=== PATIENT | male | born 1960 | race Caucasian/White ===

== ENCOUNTER → 2017-11-24 10:49 | Outpatient (CLI) | payer BC, SELFPAY ==
--- NOTE | 2017-11-24 10:57 | XR_ITS ---
XR hip LT 2-3V w/pelvis HISTORY: Left hip pain ITS.REASON: BILAT HIP PAIN ORDERING PHYSICIAN: Scott Villegas MD PATIENT AGE: 57 years COMPARISON: None FINDINGS: There are severe osteoarthritic changes of the left hip with loss of the joint space superiorly with osteosclerosis and osteophyte formation. There is minimal flattening of the left femoral head consistent with dysplastic changes from the osteoarthritis. No fracture or dislocation. No lytic change. IMPRESSION: Severe osteoarthritis of left hip with mild dysplastic changes of the left femoral head
--- NOTE | 2017-11-24 10:57 | XR_ITS ---
EXAM: XR lumbar spine min 4V HISTORY: Low back pain with bilateral hip pain ITS.REASON: BILAT HIP PAIN ORDERING PHYSICIAN: Scott Villegas MD PATIENT AGE: 57 years COMPARISON: None FINDINGS: Multilevel degenerative disc disease is present from T11 to S1 with endplate osteophytes at multiple levels. The degenerative disc disease is worse at T11-T12, T12-L1, L4-L5, and L5-S1. There is mild anterolisthesis of L5 on S1 of 6 mm. Facet arthritic changes are present from L2 to S1. No acute fracture or dislocation. IMPRESSION: Multilevel lumbar spondylosis with degenerative disc disease and facet arthritic change and osteophytosis
== END ==
PROVIDERS: PCP Family Medicine; Visit Provider Family Medicine
DX: M25.552 Pain in left hip (principal); M25.551 Pain in right hip
CPT/HCPCS: 72110; 73502

== ENCOUNTER 2018-10-19 08:00 | Outpatient (RCR) | payer BC, SELFPAY | END 2018-10-23 15:23 | disposition home or self-care (01) | LOC: PT.CARL 08:00 | PROVIDERS: Visit Provider Orthopaedic Surgery | DX: M16.12 Unilateral primary osteoarthritis, left hip (principal) | CPT/HCPCS: 97010; 97110; 97112; 97116; 97163 ==

== ENCOUNTER → 2018-12-14 14:15 | Outpatient (CLI) | payer BC, SELFPAY ==
--- NOTE | 2018-12-14 14:24 | XR_ITS ---
XR foot wt bearing LT 3V, XR foot wt bearing RT 3V, XR ankle wt bearing LT min 3V, XR ankle wt bearing RT min 3V Ordering Physician: Alina Collins DPM Patient Age: 58 years: Male HISTORY: ITS.REASON: pain TECHNIQUE: All studies below are weightbearing: Left ankle 3 views Right ankle 3 views Left foot 3 views Right foot 3 views COMPARISON :NO STUDIES PRIOR TO TODAY.... LEFT ANKLE 3 VIEWS The ankle mortise appears intact dome of the talus intact. Minimal hypertrophic changes are seen about the ankle particularly from the anterior margin of the tibia as well as the tip of the medial lateral malleolus. Most prominent finding is diffuse soft tissue swelling at the ankle, most pronounced medially. Moderate plantar calcaneal spur as well as moderate spurring at insertion of Achilles RIGHT ANKLE 3 VIEWS The dome of the talus is intact. The medial and the lateral malleolus intact with only some mild hypertrophic changes from each. The right ankle mortise intact and unremarkable on the AP view. On the AP oblique view questioninversion tilt of the talus along with the plafond, & ankle mortise-. I suspect this is merely projectional but requires correlation clinically.. Thereafter LEFT FOOT 3 VIEWS Generous plantar calcaneal spur as well as minimal spurring at insertion of Achilles ======= LEFT FOOT: 3 VIEWS Developing arthritic changes are seen at mid foot most evident at the medial tarsals with hypertrophic changes and mild irregularity at the talar navicular joint as well is the navicular first cuneiform articulation on left. These features are more evident at the left foot than right.. There is pes planus.Noted on the lateral view with the moderate plantar calcaneal spur and minimal spurring of the Achilles tendon again noted.. . The forefoot appears satisfactory. Toes unremarkable. Metatarsal satisfactory. Bones well mineralized throughout. , At at least 3 corticated old appearing ovoid osseous fragments are seen off the medial aspect of calcaneus.. RIGHT FOOT 3 VIEWS Only scant if any degenerative changes at mid foot on the right. There may be some early arthritic changes about the mid clavicular dorsally. The pes planus again noted here on right. The generous plantar calcaneal spur and scant spurring at Achilles tendon again noted. Scant flexion deformity at the toes question on lateral view. Borderline/mild degenerative changes medial aspect IP joint great toe... Otherwise toes and metatarsals are unremarkable. IMPRESSION//SUMMARY FEET Bilateral Pes Planus Left foot with more evident developing arthritic changes-which are most notable at the medial tarsals . Arthritic changes about about the proximal and distal navicular left foot>> right ANKLEs Ankle joint fairly well-maintained bilaterally. Mild hypertrophic degenerative changes about the margins of joint, left slightly more than right Question subtle early inversion tilt right ankle more than left on oblique view More Prominent Soft Tissue Swelling about the Left Ankle & most pronounced medially. Requires correlation Also note additional osseous fragments/dystrophic calcification noted medial to the Left calcaneus well
== END ==
PROVIDERS: PCP Family Medicine; Visit Provider Podiatrist
DX: M79.673 Pain in unspecified foot (principal); M76.821 Posterior tibial tendinitis, right leg; M76.822 Posterior tibial tendinitis, left leg
CPT/HCPCS: 73610; 73630

== ENCOUNTER → 2020-05-02 15:14 | Outpatient (CLI) | payer BC, SELFPAY ==
--- NOTE | 2020-05-02 | CA_ITS ---
APPROVED REPORT Right Lower Extremity Venous Study for DVT. [employer]ator: SHANTEL Indications Lower Extremity Pain: Right Lower Extremity Edema: Right Patient denies trauma. States most of the pain is in the popliteal fossa down into the calf. Risk Factors Obesity Morbid obesity Medications Aspirin 81 mg ASA daily Vein Imaging CFV (R): Not Visualized FEM (R): compressive, spontaneous, phasic, augmentation POP (R): compressive, spontaneous, phasic, augmentation PTV (R): compressive, spontaneous, phasic, augmentation GSV (R): compressive, spontaneous, phasic, augmentation SSV (R): compressive, spontaneous, phasic, augmentation Peroneals (R):Not Visualized Findings No evidence of DVT or superficial thrombophlebitis in the veins scanned of the right lower extremity. Conclusion No evidence of DVT or superficial thrombophlebitis in the veins scanned of the right lower extremity. Electronically signed by : Devin Golden MD 05/02/2020 17:33:26
== END ==
PROVIDERS: PCP Family Medicine; Visit Provider Family Medicine
DX: R60.0 Localized edema (principal); M79.661 Pain in right lower leg
CPT/HCPCS: 93971

== ENCOUNTER → 2020-10-20 15:42 | Outpatient (CLI) | payer BC, SELFPAY ==
--- NOTE | 2020-10-20 | XR_ITS ---
PROCEDURE: XR ANKLE RT MIN 3V CLINICAL INDICATION: Pain swelling and redness COMPARISON: CR [id number] XR ankle wt bearing LT min 3V from 12/14/2018 CR [id number] XR ankle wt bearing RT min 3V from 12/14/2018 FINDINGS: Soft tissue swelling is present medially and laterally. Degenerative changes are present at the ankle joint. There is a prominent os trigonum. Small calcific density is present along the medial malleolus projecting between the malleolus and the talus. No obvious fracture or dislocation. There is somewhat limitation in patient positioning on the AP views. Prominent calcaneal spurs noted. IMPRESSION: Degenerative changes with soft tissue swelling Dictated by: Devin Golden MD 10/20/2020 16:13 Devin Golden MD in [place] 10/20/2020 16:13
--- NOTE | 2020-10-20 | XR_ITS ---
PROCEDURE: XR FOOT RT MIN 3V CLINICAL INDICATION: Foot pain swelling and redness COMPARISON: No exams were available for comparison FINDINGS: No fracture or dislocation. No lytic or blastic change. There is normal mineralization. Osteoarthritic changes are present at the talonavicular and navicular cuneiform joint. There is a prominent os trigonum there is a type 3 os navicularis with bony hypertrophic changes at the medial aspect of the navicular. Mild osteoarthritic changes are present at the 1st interphalangeal joint and the 1st metatarsophalangeal joint. There is a small calcaneal spur. Other findings:None. IMPRESSION: Degenerative changes as described above Dictated by: Devin Golden MD 10/20/2020 16:11 Devin Golden MD in [place] 10/20/2020 16:11
== END ==
PROVIDERS: PCP Family Medicine; Visit Provider Nurse Practitioner
DX: M79.671 Pain in right foot (principal); M25.571 Pain in right ankle and joints of right foot
CPT/HCPCS: 73610; 73630

== ENCOUNTER → 2020-10-30 10:05 | Outpatient (CLI) | payer BC, SELFPAY ==
--- NOTE | 2020-10-30 | US_ITS ---
APPROVED REPORT Exam Type: Lower Extremity Segmental Pressures Risk Developer: Joaquina Newsome CRT Indications Ht 72 [id number] Risk Factors Hypertension Pressures/Indices Right Indices Left Indices Brachial 89.00 mmHg Brachial 101.00 mmHg Low Thigh 120.00 mmHg 1.19 Low Thigh 126.00 mmHg 1.25 Calf 91.00 mmHg 0.90 Calf 87.00 mmHg 0.86 Ankle(PT) 117.00 mmHg 1.16 Ankle(PT) 107.00 mmHg 1.06 Ankle(DP) 103.00 mmHg 1.02 Ankle(DP) 97.00 mmHg 0.96 Digit 91.00 mmHg 0.90 Digit 65.00 mmHg 0.64 Findings R CRISTIAN 1.2 L CRISTIAN 1.1 R TBI 0.9 L TBI 0.6 Normal waveforms, pulses. Conclusion R CRISTIAN 1.2 L CRISTIAN 1.1 R TBI 0.9 L TBI 0.6 Normal waveforms, pulses. Normal appearing resting noninvasive lower extremity arterial study. Electronically signed by : Devin Golden MD 10/30/2020 16:05:02
== END ==
PROVIDERS: PCP Family Medicine; Visit Provider Nurse Practitioner
DX: M79.671 Pain in right foot (principal); I73.9 Peripheral vascular disease, unspecified
CPT/HCPCS: 93923; 93924

== ENCOUNTER → 2021-01-30 10:10 | Outpatient (CLI) | payer BC, SELFPAY ==
[2021-01-30 10:38] LABS: Basophils # 0.1 K/mm3 (0-0.2); Basophils % 1.9 % (0.1-2.0); Eosinophils # 0.1 K/mm3 (0.0-0.4); Eosinophils % 3.3 % (0.1-12.0); Hemoglobin 17.7 g/dL (14.1-18.0); Lymphocytes # 1.8 K/mm3 (0.7-4.5); Lymphocytes % 42.9 % (10-50); Mean Corpuscular HGB Conc 31.6 g/dL (31.8-35.4); Mean Corpuscular Hemoglobin 31.5 pg (27.0-31.2); Mean Corpuscular Volume 99.5 fl (80-94); Mean Platelet Volume 9.3 fl (7.4-10.4); Monocytes # 0.3 K/mm3 (0.1-1.0); Monocytes % 6.2 % (1.7-9.3); Neutrophils # 1.9 K/mm3 (1.8-7.8); Neutrophils % 45.7 % (37.0-80.0); Platelet Count 202 K/mm3 (142-424); Red Blood Count 5.63 M/mm3 (4.60-6.20); Red Cell Distribution Width 14.1 % (11.5-17.5); White Blood Count 4.2 K/mm3 (4.8-10.8)
[2021-01-30 11:08] LABS: Anion Gap 14.3 mEq/L (5-15); Bilirubin,Direct 0.1 mg/dl (0.0-0.4); Bilirubin,Total 0.7 mg/dl (0.2-1.3); Blood Urea Nitrogen 18 mg/dl (9-20); Calcium 9.9 mg/dl (8.4-10.2); Carbon Dioxide 31 mmol/L (22.0-30.0); Chloride 99 mmol/L (98-107); Estimated Glomerular Filt Rate 76 ml/min (>60); GFR (African American) 93 ML/MIN (>60); Glucose 99 mg/dl (74-100); Potassium 5.3 mmoL/L (3.5-5.1); Sodium 139 mmol/L (136-145)
[2021-01-30 11:09] LABS: Alanine Aminotransferase 27 U/L (12-78); Albumin Level 4.6 g/dl (3.5-5.0); Alkaline Phosphatase 61 U/L (38-126); Aspartate Amino Transferase 42 U/L (17-59); Bilirubin,Indirect 0.6 mg/dL (0.0-0.9); Bilirubin,Unconjugated 0.6 mg/dL (0.0-1.1); Chol/HDL Ratio 4.9 (1-3.5); Cholesterol 214 mg/dl (140-200); HDL Cholesterol 44 mg/dl (40-60); Total Protein,Serum 7.9 g/dl (6.3-8.2); Triglycerides 136 mg/dl (30-150); VLDL Cholesterol 27 mg/dL (0-40)
[2021-01-30 11:20] LABS: Direct LDL Cholesterol 132.32 mg/dL (100-129)
[2021-01-30 11:24] LABS: Free T4 (Free Thyroxine) 1.11 ng/dl (0.78-2.19)
[2021-01-30 11:39] LABS: Thyroid Stimulating Hormone 2.22 uIU/mL (0.465-4.68)
== END ==
PROVIDERS: Visit Provider Internal Medicine Cardiovascular Disease
DX: I10 Essential (primary) hypertension; E78.5 Hyperlipidemia, unspecified; Z79.899 Other long term (current) drug therapy; I48.20 Chronic atrial fibrillation, unspecified
CPT/HCPCS: 36415; 80048; 80061; 80076; 84439; 84443; 85025

== ENCOUNTER → 2021-02-05 12:49 | Outpatient (CLI) | payer BC, SELFPAY ==
--- NOTE | 2021-02-05 12:50 | CT_ITS ---
Procedure: CT ANGIO ABDOMEN/FEMORAL CLINICAL HISTORY: eval for PAD Lower legs discolored x2-yrs is home and chin COMPARISON: No exams were available for comparison TECHNIQUE: IV Contrast: 120 mL Isovue 370 Axial images obtained with sagittal and coronal reformats. All CT scans at the facility use one or more dose reduction, viz: automated exposure control, ma/kV adjustment per patient size (including targeted exams where dose is matched to indication, i.e. head), or iterative reconstruction technique. FINDINGS: The aorta has an unremarkable appearance. Common iliacs and external iliacs are tortuous on both sides but no evidence significant stenosis. Small amount of plaque is present in the proximal aspect of the right common femoral artery with less than 50 percent stenosis. The right SFA and popliteal is unremarkable. The left common femoral has an unremarkable appearance. Minimal calcific plaque is present in the mid left SFA and in the popliteal artery with no significant stenosis. On the right, the tibial peroneal trunk is unremarkable. Three-vessel runoff is present to the ankles. The left tibial peroneal trunk has an unremarkable appearance. Three-vessel runoff is present to the ankles. Pertinent incidental there is a total left hip prosthesis present. The acetabular cup screws extend within the soft tissues medial to the ileum. There is mild diffuse subcutaneous edema involving the lower extremities on both sides below the knees. IMPRESSION: 1. No significant stenosis in the abdominal aorta pelvis or lower extremities. Less than 50 percent stenosis is present in the right common femoral artery due to calcific plaque. 2. Diffuse subcutaneous edema of the lower extremities below the knees on both sides. Dictated by: Devin Golden MD 02/06/2021 10:16 Devin Golden MD in [place] 02/06/2021 10:16
== END ==
PROVIDERS: PCP Family Medicine; Visit Provider Internal Medicine Cardiovascular Disease
DX: M79.605 Pain in left leg (principal); M79.604 Pain in right leg; L81.9 Disorder of pigmentation, unspecified; I10 Essential (primary) hypertension; E78.5 Hyperlipidemia, unspecified; I48.20 Chronic atrial fibrillation, unspecified
CPT/HCPCS: 75635; Q9967

== ENCOUNTER 2021-07-24 17:20 | Emergency (ER) | payer BC, SELFPAY ==
[2021-07-24 17:25] VITALS: BP 121/92; PULSE 77; RESP 18; TEMP 36.3; O2SAT 96; BMI 56.7
--- NOTE | 2021-07-24 17:44 | XR_ITS ---
PROCEDURE INFORMATION: Exam: XR Left Hand Exam date and time: 07/24/2021 5:44 PM Age: 61 years old Clinical indication: Injury or trauma; Fall; Blunt trauma (contusions or hematomas); Hand; Left; Injury date: 07/24/2021; Injury details: Fell and had pain in 2nd and 3rd fingers TECHNIQUE: Imaging protocol: XR Left hand. Views: 3 or more views. COMPARISON: No relevant prior studies available. FINDINGS: Bones/joints: A curvilinear 2 mm volar plate avulsion fracture of the 5th PIP joint seen on lateral series 3, arising from the anterior base of the 5th middle phalanx, minimally displaced. No definite fractures in the 2nd and 3rd digits, in the area of reported symptoms.No significant arthritic deformities.There are no lytic skeletal lesions seen. Soft tissues: Soft tissue swelling in the digits.There are no soft tissue masses or fluid collections. IMPRESSION: 1. 2 mm volar plate avulsion fracture at the 5th PIP joint, arising from the anterior base of the 5th middle phalanx, indeterminate age. 2. No acute fracture or dislocation in the 2nd or 3rd digits. 3. Soft tissue swelling.
--- NOTE | 2021-07-24 17:50 | HMH.EDUTC ---
[facility] [place]ression: Fall Qualifiers: Encounter type: initial encounter Qualified Code(s): W19.XXXA - Unspecified fall, initial encounter Disposition: Home, Self-Care Condition on Discharge: Good Instructions: How To Perform RICE (Rest, Ice, Compress, Elevate), How to Andres Tape Additional Instructions: *RICE, Rest the extremity, Ice 15-20 minutes 3-4 times daily, Compress- wear the audra wrap as discussed as much as possible to help reduce swelling and pain, Elevate the extremity when at rest *Andres tape/finger splint is for support and help control swelling, use it except in the shower. Be sure that is not to tight but not to loose either *Elevate when resting *Ibuprofen every 6-8 hours as needed for pain an inflammation. If need something more can take Tylenol in between doses of Ibuprofen to help Immediately follow up with your family doctor for new or worsening of symptoms, or no noticeable improvement over the next 3-5 days Follow up with your Family Doctor if no improvement or any worsening of symptoms Return if needed Straight to ER if any life threatening symptoms Follow up with Orthopedics if pain continues or worsens Call back to the [facility] later this evening for the official reading of your xray Referrals: Scott Villegas MD [Primary Care Provider] - As needed Forms: Work/School Release Time of Disposition: 18:39 Medical Decision Making - Víctor Inquiry Pt receiving controlled substance: No Víctor was queried for this patient: No Vital Signs: 07/24/21 17:25 07/24/21 18:37 Temperature 97.4 F L 97.4 F L Temperature Source Temporal Artery Scan Pulse Rate 77 Pulse Rate [Right Brachial] 77 Respiratory Rate 18 18 Blood Pressure 121/92 H Blood Pressure [Right Arm] 121/92 H Blood Pressure Mean [Right Arm] 101 Blood Pressure Source [Right Arm] Automatic Cuff Blood Pressure Position [Right Arm] Sitting 02 Sat by Pulse Oximetry 96 Oxygen Delivery Method Room Air - Radiology Data #1 Image(s): Hand Image Reviewed: Yes I reviewed the patient's radiology image w/the ED provider No acute fracture [facility] [place] - General Stated complaint: AO 07/24 injured L hand Time Seen by Provider: 07/24/21 17:50 Mode of Arrival: Ambulatory Source of Information: Patient Limitations: No Limitations Description of Symptoms (Recalled from Triage Doc. by RN): PATIENT REPORTS HE FELL OFF ESCALATOR TODAY AND INJURED LEFT HAND HEENT Symptoms (Recalled from RN notes): No Resp Symptoms (Recalled from RN notes): No Skin Symptoms (Recalled from RN notes): No MS Symptoms (Recalled from RN notes): Yes Functional Status (Recalled from RN notes): WNL - History of Present Illness Provider Complaint: Patient states that he was at [facility] today and he tripped getting off the escalator and landed on his left hand States that he has been having pain in his third and fourth finger ever since with swelling and bruising States he was checked out there by the EMT's and came in here after he was on his way home and was still having some pain - Related Data Home Medications Medication Instructions Recorded Confirmed aspirin 81 mg tablet,delayed 81 mg PO DAILY 08/25/18 03/05/21 release carvedilol 6.25 mg tablet 6.25 mg PO BID 08/25/18 03/05/21 lisinopril 2.5 mg tablet 2.5 mg PO DAILY 08/25/18 03/05/21 gcinikyt-yvw-rbuqi acid 300 1 tab PO DAILY 08/25/18 03/05/21 mcg-lycopene 600 mcg-lutein 300 mcg tablet furosemide 80 mg tablet 80 mg PO BID 11/03/20 03/05/21 Previous Rx's Medication Instructions Recorded atorvastatin 40 mg tablet 40 mg PO DAILY #90 tab 03/05/21 dabigatran etexilate 150 mg capsule 150 mg PO BID #60 cap 03/05/21 diltiazem HCl 120 mg 120 mg PO DAILY #90 cap 03/05/21 capsule,extended release 24 hr Allergies Allergy/AdvReac Type Severity Reaction Status Date / Time No Known Allergies Allergy Verified 03/05/21 11:07 - Worker's Comp Is this a Worker's Comp case?: No
[2021-07-24 18:37] VITALS: BP 121/92; PULSE 77; RESP 18; TEMP 36.3; O2SAT 96
== END 2021-07-24 18:44 | disposition home or self-care (01) ==
PROVIDERS: Emergency Provider Nurse Practitioner; PCP Family Medicine
DX: S63.92XA Sprain of unspecified part of left wrist and hand, initial encounter (principal); W01.0XXA Fall on same level from slipping, tripping and stumbling without subsequent striking against object, initial encounter; Y92.89 Other specified places as the place of occurrence of the external cause; I48.91 Unspecified atrial fibrillation; I10 Essential (primary) hypertension; Z96.642 Presence of left artificial hip joint
CPT/HCPCS: 29125; 73130; 99202; G0463

== ENCOUNTER 2021-11-09 14:28 | Emergency (ER) | payer BC, SELFPAY ==
[2021-11-09 15:00] VITALS: BP 137/90; PULSE 73; RESP 22; TEMP 37; O2SAT 100; BMI 52.7
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
[2021-11-09 16:01] VITALS: BP 137/90; PULSE 73; RESP 22; TEMP 37; O2SAT 100
== END 2021-11-09 16:05 | disposition home or self-care (01) ==
PROVIDERS: Emergency Provider Nurse Practitioner; PCP Family Medicine
DX: R42 Dizziness and giddiness (principal); M25.511 Pain in right shoulder; I10 Essential (primary) hypertension; I48.0 Paroxysmal atrial fibrillation
CPT/HCPCS: 99202; C9803; G0463; U0003; U0005

== ENCOUNTER → 2022-04-13 14:28 | Outpatient (CLI) | payer BC, SELFPAY ==
--- NOTE | 2022-04-13 14:34 | XR_ITS ---
FINAL REPORT CLINICAL HISTORY: RIB PAIN ON LEFT SIDE FINDINGS: A single view of the chest with 3 views of the ribs were obtained. There is no acute cardiopulmonary process. No pneumothorax is identified. There are left 5th and 8th nondisplaced anterolateral rib fractures. IMPRESSION: Rib fractures as above. Reviewed, Interpreted and Dictated by Johnathon Patrick III, MD Transcribed by Sylvia Howell Authenticated and [facility]
== END ==
LOC: RAD 14:29
PROVIDERS: PCP Nurse Practitioner Family; Visit Provider Nurse Practitioner Family
DX: R07.81 Pleurodynia (principal)
CPT/HCPCS: 71101

== ENCOUNTER 2022-07-25 19:55 | Inpatient (IN) | payer BC, SELFPAY ==
[2022-07-25] VITALS (20 sets, daily range): BP systolic 63–136; BP diastolic 29–79; PULSE 97–153; RESP 19–40; TEMP 37.3–37.9; O2SAT 67–98; BMI 40.6
--- NOTE | 2022-07-25 19:57 | ECG_ITS ---
APPROVED REPORT Exam: Resting ECG HR:116 bpm ECG Measurements Heart Rate 116 AXES QRSd 151 QRS 112 QT 414 T 144 QTc 483 Conclusion ATRIAL FIBRILLATION WITH RAPID VENTRICULAR RESPONSE WITH ABERRANT CONDUCTION OR VENTRICULAR PREMATURE COMPLEXES RIGHT AXIS DEVIATION [QRS AXIS > 100] RIGHT BUNDLE BRANCH BLOCK [120+ ms QRS DURATION, UPRIGHT V1, 40+ ms S IN I/aVL/V4/V5/V6] ABNORMAL ECG UNCONFIRMED REPORT Electronically signed by : Scott Lazo MD 07/26/2022 21:23:51
--- NOTE | 2022-07-25 19:57 | XR_ITS ---
PROCEDURE INFORMATION: Exam: XR Chest Exam date and time: 07/25/2022 8:15 PM Age: 62 years old Clinical indication: Shortness of breath; Additional info: SOA TECHNIQUE: Imaging protocol: Radiologic exam of the chest. Views: 1 view. COMPARISON: No relevant prior studies available. FINDINGS: Lungs: Low lung volumes with diffuse interstitial coarsening. No lobar consolidation. Pleural spaces: Blunting of the costophrenic sulci right greater than left. No pneumothorax. Heart/Mediastinum: Heart appears enlarged. Bones/joints: No acute abnormality. IMPRESSION: Low lung volumes with diffuse interstitial coarsening which may be hypoventilatory however atypical infection or interstitial edema could have a similar appearance.
--- NOTE | 2022-07-25 20:02 | CT_ITS ---
PROCEDURE INFORMATION: Exam: CTA Chest With Contrast Exam date and time: 07/25/2022 8:39 PM Age: 62 years old Clinical indication: Shortness of breath; Additional info: SOA TECHNIQUE: Imaging protocol: Computed tomographic angiography of the chest with contrast. 3D rendering (Not supervised by radiologist): MIP and/or 3D reconstructed images were created by the technologist. Radiation optimization: All CT scans at this facility use at least one of these dose optimization techniques: automated exposure control; mA and/or kV adjustment per patient size (includes targeted exams where dose is matched to clinical indication); or iterative reconstruction. Contrast material: ISOVUE; Contrast volume: 70 ml; Contrast route: INTRAVENOUS (IV); COMPARISON: CR XR CHEST PORTABLE 07/25/2022 8:15 PM FINDINGS: Pulmonary arteries: Evaluation is limited by contrast timing and body habitus. Filling defects within the distal right main pulmonary artery extending into lobar and segmental branches. Aorta: No aortic aneurysm. No aortic dissection. Lungs: Interstitial coarsening with consolidation at the right lung base. Pleural spaces: Small right-sided pleural effusion No pneumothorax. Heart: Cardiomegaly. Coronary artery calcifications. Right ventricle measures 5.4 cm. Left ventricle measures 5.7 cm. Lymph nodes: No enlarged lymph nodes. Bones/joints: Degenerative changes. No acute fracture. Soft tissues: No significant swelling. IMPRESSION: 1. Limited examination with findings concerning for acute PE. 2. Interstitial coarsening with small right-sided effusion and dependent consolidation.
[2022-07-25 20:07] LABS: ABG Base Excess 2.7 mmol/L (-2.4-2.3); ABG Oxygen Saturation 98 % (90-100); ABG PCO2 49.3 mmhg (35.0-45.0); ABG PH 7.37 mmol/L (7.35-7.45); ABG PO2 95.5 mmhg (80-100); ABG TCO2 29.5 mmhg (23-27); Allen's Test Y; Oxygen 10L %; Source Right Radial
--- NOTE | 2022-07-25 20:10 | HMH.EDSOB ---
Discharge Plan Disposition Patient Disposition: Admitted As Inpatient Prescriptions Prescriptions: No Action aspirin [Adult Low Dose Aspirin] 81 mg tablet,delayed release (DR/EC) 81 mg PO DAILY carvedilol [Coreg] 6.25 mg tablet 6.25 mg PO BID lisinopril 2.5 mg tablet 2.5 mg PO DAILY Centrdominic Silver Men 300-600-300 mcg tablet 1 tab PO DAILY furosemide 80 mg tablet 80 mg PO BID diltiazem HCl 120 mg capsule,extended release 24hr 120 mg PO DAILY Qty: 90 3RF Pradaxa 150 mg capsule 150 mg PO BID Qty: 60 3RF atorvastatin 40 mg tablet See Rx Instructions .ROUTE .COMPLEX Qty: 30 3RF Dose Instruction: Take 1 tablet by mouth once daily Rx Instructions: Take 1 tablet by mouth once daily Referrals Follow up/Referrals: Alisha Suh APRN [Primary Care Provider] - See instructions Clinical Impressions Clinical Impression: Pulmonary embolism, Right bundle branch block (RBBB), Acute exacerbation of chronic obstructive airways disease, Congestive heart failure, Atrial fibrillation with rapid ventricular response, Obesity Discharge ED Provider: Chiki Mendoza Resp/SOB HPI General Chief Complaint: Shortness of Breath/Dyspnea Stated Complaint: SOA Time Seen by Provider: 07/25/22 19:58 Mode of Arrival: EMS Source of Information: Patient, EMS and Medical Record Limitations: No Limitations Description of Symptoms (Recalled from ER Triage Doc. by RN): Pt brought in by EMS for SOA. Pt started feeling bad at aprox 1pm and continued to get worse. Pt c/o SOA. He denies any pain. He says he was just at work and began to have increased work of breathing suddenly. Pt arrived on non-rebreather from EMS. RA sat of 70% when he arrived here and was placed back on non-rebreather. History of Present Illness progressive sob which started today - no pain -has hx of a fib - reports has been compliant with meds - but reports has not been on antithrombin inhib - MD Complaint: shortness of breath Onset (ago): hour(s) Severity: moderate Known history of: congestive heart failure and other (a fib ) Treatment prior to arrival: oxygen Related Data Home oxygen amount: none Home Medications Medication Instructions Recorded Confirmed aspirin 81 mg tablet,delayed 81 mg PO DAILY 08/25/18 03/05/21 release (Adult Low Dose Aspirin) carvedilol 6.25 mg tablet (Coreg) 6.25 mg PO BID 08/25/18 03/05/21 lisinopril 2.5 mg tablet 2.5 mg PO DAILY 08/25/18 03/05/21 uomptdmx-hxg-rlnye acid 300 1 tab PO DAILY 08/25/18 03/05/21 mcg-lycopene 600 mcg-lutein 300 mcg tablet (Centrum Silver Men) furosemide 80 mg tablet 80 mg PO BID 11/03/20 03/05/21 Previous Rx's Medication Instructions Recorded dabigatran etexilate 150 mg 150 mg PO BID #60 caps 03/05/21 capsule (Pradaxa) diltiazem HCl 120 mg 120 mg PO DAILY #90 caps 03/05/21 capsule,extended release 24 hr atorvastatin 40 mg tablet See Rx Instructions .Route 03/29/22 .COMPLEX #30 tabs Allergies Allergy/AdvReac Type Severity Reaction Status Date / Time No Known Allergies Allergy Verified 03/05/21 11:07 Well's Criteria PE Score Clinical signs/symptoms of DVT: No PE is #1 diagnosis or equally likely: Yes Heart rate is > 100: Yes Immobile at least 3 days, or surgery in past 4 wks: No Previously, obj. diagnosed PE or DVT: No Hemoptysis: No Malignancy w/Rx within 6mo, or palliative: No PE Score: 4 PFSH PFSH Social History Smoking Status: Never smoker second hand exposure: No alcohol intake: current current occupational status: other Travel in the last 8 weeks: None ROS Obtained: Yes All systems reviewed & no additional complaints except as documented Constitutional Constitutional: Denies fever(s) and Denies headache(s) Eyes Eyes: Denies loss of peripheral vision ENT Ears, Nose, Mouth, and Throat: Denies headache(s) Cardiovascular Cardiovascular: Denies chest pain, Denies chest pain with activity and Reports dyspnea
[2022-07-25 20:17] LABS: Basophils # 0.2 K/mm3 (0-0.2); Basophils % 1.4 % (0.1-2.0); Chloride 88 mmol/L (98-107); Eosinophils # 0.1 K/mm3 (0.0-0.4); Eosinophils % 0.6 % (0.1-12.0); Hematocrit 54.9 % (42.0-52.0); Hemoglobin 17.4 g/dL (14.1-18.0); Lymphocytes # 0.8 K/mm3 (0.7-4.5); Lymphocytes % 5.7 % (10-50); Mean Corpuscular HGB Conc 31.8 g/dL (31.8-35.4); Mean Corpuscular Hemoglobin 31.1 pg (27.0-31.2); Mean Corpuscular Volume 97.9 fl (80-94); Mean Platelet Volume 8.7 fl (7.4-10.4); Monocytes # 0.4 K/mm3 (0.1-1.0); Neutrophils % 89.3 % (37.0-80.0); Platelet Count 223 K/mm3 (142-424); Red Blood Count 5.61 M/mm3 (4.60-6.20); Red Cell Distribution Width 14.4 % (11.5-17.5); White Blood Count 14.5 K/mm3 (4.8-10.8)
[2022-07-25 20:18] LABS: MANUAL DIFFERENTIAL MANUAL DIFFERENTIAL (MANUAL DIFF); Potassium 4.6 mmoL/L (3.5-5.1); Sodium 132 mmol/L (136-145)
[2022-07-25 20:20] LABS: Blood Urea Nitrogen 20 mg/dl (9-20); Creatinine Clearance Estimated 93 mL/min (50-200); Estimated Glomerular Filt Rate 44 ml/min (>60); GFR (African American) 53 ML/MIN (>60)
[2022-07-25 20:21] LABS: Alanine Aminotransferase 32 U/L (12-78); Alkaline Phosphatase 101 U/L (38-126); Anion Gap 14.6 mEq/L (5-15); Aspartate Amino Transferase 40 U/L (17-59); Bilirubin,Direct 0.5 mg/dl (0.0-0.4); Bilirubin,Indirect 1.8 mg/dL (0.0-0.9); Bilirubin,Total 2.3 mg/dl (0.2-1.3); Bilirubin,Unconjugated 1.8 mg/dL (0.0-1.1); Calcium 8.4 mg/dl (8.4-10.2); Carbon Dioxide 34 mmol/L (22.0-30.0); Glucose 90 mg/dl (74-100)
[2022-07-25 20:22] LABS: Albumin Level 4.2 g/dl (3.5-5.0); Total Protein,Serum 8.3 g/dl (6.3-8.2)
[2022-07-25 20:24] LABS: Microscopic, Urine URINE MICROSCOPIC (MICROSCOPIC)
--- NOTE | 2022-07-25 20:26 | PC.NURSE ---
Rt at bedside setting up Vapotherm. Pt at 30 lmp on 50% O2 and w/ )2 sat at 96%. Respirations at 35/min. Pt states he is feeling a little bit better
[2022-07-25 20:27] LABS: Lactic Acid 2.1 mmol/L (0.7-2.1)
[2022-07-25 20:27] LABS: Appearance,Urine CLEAR (Clear); Bilirubin,Urine Negative (Negative); Blood, Urine TRACE-I (Negative); Color,Urine YELLOW (Yellow); Glucose,Urine (UA) Negative (Negative); Ketones,Urine Negative (Negative); Leukocyte Esterase,Urine Negative (Negative); Nitrate,Urine Negative (Negative); PH,Urine 5.5 (5.0-8.5); Protein,Urine 2+ (Negative)
[2022-07-25 20:28] LABS: Coronavirus 19, PCR Not Detected (NotDetected); Influenza A, PCR Not Detected (NotDetected); Influenza B, PCR Not Detected (NotDetected)
[2022-07-25 20:30] LABS: NT Pro Brain Natriuretic Pep. 1910 pg/mL (0-125)
[2022-07-25 20:34] LABS: Troponin I 0.02 ng/ml (0.00-0.034)
[2022-07-25 20:35] LABS: Lymphocytes % 6 % (10-50); Monocytes % 1 % (2-9); Neutrophils % 76 % (42-76); Platelet Estimate Normal; RBC Morphology Normal; Total Cells Counted 100
[2022-07-25 20:39] LABS: Bacteria,Urine Trace /lpf; RBC,Urine Occasional #/hpf (0-3); WBC,Urine Occasional #/hpf (0-3)
--- NOTE | 2022-07-25 21:56 | PC.NURSE ---
Spoke with Martha,Hospitalist at this time for pt c/o nausea. She will place orders.
--- NOTE | 2022-07-25 22:06 | PC.NURSE ---
Addendum entered by Truong Castillo RN 07/25/22 23:25: Confirmed 10,000 unit iv bolus and 2,000units/hour iV gtt Original Note: Confirmed dosing of heparin bolus and drip rate with João from [employer].
[2022-07-25 22:19] LABS: PTT Heparin (inpatient only) 31.2 Seconds (23.6-34.0)
--- NOTE | 2022-07-25 22:20 | PC.NURSE ---
Bp not reading on monitor. This RN and FLASH Ramirez in room attempting to get manual BP w/ no success. Pt remains A&Ox4 but is drowsy and diaphoretic. BP cuff changed to appropriate size cuff for forearm and taken on pts right forearm and able to get a BP reading of 95/69. hospitalist believes this BP to be true based of pt condition and verbalizes desire to start Kurtis gtt and Cardizem gtt per protocol. No orders for Cardizem bolus though, just to start gtt at 5mg/hr.
--- NOTE | 2022-07-25 22:37 | PC.NURSE ---
2237- Kurtis started at 100mcg/min per protocol BP 63/38 2244- Kurtis gtt increased to 120mcg/min d/t BP 69/29 2250-Kurtis gtt increased to 130mcg/min d/t BP 80/40 2300- Kurtis gtt increased to 140mcg/min d/t BP 97/38 2305- Kurtis gtt increased to 150mcg/min d/t BP 83/62 2330- Kurtis increased to 160mcg/min d/t BP 71/49
[2022-07-25 22:41] LABS: Reflex Lactic Add Lactic Reflex
--- NOTE | 2022-07-25 23:07 | EXP.HP ---
History of Present Illness *Admission Date: 07/25/22 *Reason for visit:: Shortness of breath *History of present illness: This is a 62-year-old gentleman with past medical history of CHF, A. fib, HTN, HLD who presents emergency department today with complaints of shortness of breath. He reports shortness of breath that began this morning and became acutely worse this afternoon. He denies any fever or cough. He does endorse chronic bilateral lower extremity edema but no increase from baseline. He denies any chest pain. Of note patient was prescribed Xarelto by cardiology but has not had it in several months due to cost. Last heart cath in 2018, EF of 65%, no intervention necessary at that time. On arrival to the emergency department he was noted to be hypoxic with oxygen saturations in the 60s. He was also noted to be in mild respiratory distress, A. fib with RVR with a heart rate of 160. Work-up complete and notable for PE on CTA. BNP elevated at 1900, lactic acid 2.0, NADER with a creatinine of 1.6, white blood cell count of 14. COVID and flu negative. He was noted to have mild hypotension with systolic in the 80s and 90s. Febrile to 100.6. Due to the above-mentioned complaints he is admitted to the hospital service for further evaluation and management. On my exam patient is diaphoretic, pale and short of breath. He is on Vapotherm and oxygenating well. It appears that patient is likely symptomatic to his A. fib with RVR. Spoke with cardiology Dr. Nash, recommended phenylephrine drip for blood pressure support, Cardizem drip for heart rate control and heparin drip for PE. He did receive Lasix in the emergency department. Blood cultures obtained on admission and will initiate broad-spectrum antibiotics for community-acquired pneumonia given consolidation noted on chest x-ray and fever with leukocytosis. At this point he does meet sepsis criteria but complicated secondary to history of CHF. Will defer 30 mL/kg bolus in the setting of volume overload. [facility] Medical History (Updated 07/26/22 @ 04:04 by Maya Smith, WARNER) Atrial fibrillation CHF (congestive heart failure) History of left heart catheterization Hypertension Hypotension Peripheral vascular disease Surgical History (Updated 07/26/22 @ 04:04 by Maya Smith RN) History of hip replacement Previous back surgery Family History (Updated 07/26/22 @ 03:41 by Maya Smith, RN) Other Adopted Social History (Updated 07/26/22 @ 03:41 by Maya Smith, RN) Smoking Status: Never smoker second hand exposure: No alcohol intake: current current occupational status: employed and other Travel in the last 8 weeks: None Review of Systems Constitutional Constitutional: Reports as per HPI and Denies headache(s) Eyes Eyes: Reports system reviewed and no additional complaints, except as documented ENT Ears, Nose, Mouth, and Throat: Reports system reviewed and no additional complaints, except as documented and Denies headache(s) *Cardiovascular Cardiovascular: Reports diaphoresis, Reports dyspnea, Reports irregular heart rhythm and Reports pedal edema *Respiratory Respiratory: Reports as per HPI and Reports dyspnea *Gastrointestinal Gastrointestinal: Reports system reviewed and no additional complaints, except as documented *Genitourinary Genitourinary: Reports system reviewed and no additional complaints, except as documented *Musculoskeletal Musculoskeletal: Reports system reviewed and no additional complaints, except as documented Integumentary/Breasts Skin/Breast: Reports system reviewed and no additional complaints, except as documented *Neurologic Neurologic: Reports system reviewed and no additional complaints, except as documented and Denies headache(s) Meds Home Medications and Allergies Home Medications Medication Instructions Recorded Confirmed Type aspirin 81 mg tablet,delayed 81 mg PO DAILY A.fib 08/25/18 07/26/22 History release (Toño
[2022-07-25 23:23] LABS: Lactic Acid Follow Up (RFLX 1) 3.1 mmol/L (0.7-2.1)
[2022-07-25 23:26] LABS: Troponin I 0.06 ng/ml (0.00-0.034)
--- NOTE | 2022-07-25 23:40 | PC.NURSE ---
Report called to WARNER Kurtz at this time
--- NOTE | 2022-07-25 23:53 | PC.NURSE ---
PT ARRIVED VIA STRETCHER AT [id number].
[2022-07-26] VITALS (21 sets, daily range): BP systolic 92–134; BP diastolic 44–82; PULSE 88–121; RESP 20–106; TEMP 36.7–37.1; O2SAT 93–100
--- NOTE | 2022-07-26 00:20 | PC.NURSE ---
Pt taken to floor with this RN and Will from RT. Pt on mobile monitor.
[2022-07-26 00:51] LABS: Reflex Lactic (2 hrs) Add Lactic Reflex
--- NOTE | 2022-07-26 01:00 | ECG_ITS ---
APPROVED REPORT Exam: Resting ECG HR:77 bpm ECG Measurements Heart Rate 77 AXES QRSd 157 QRS 114 QT 371 T 0 QTc 403 Conclusion ATRIAL FIBRILLATION INDETERMINATE AXIS RIGHT BUNDLE BRANCH BLOCK [120+ ms QRS DURATION, UPRIGHT V1, 40+ ms S IN I/aVL/V4/V5/V6] ABNORMAL ECG UNCONFIRMED REPORT Electronically signed by : Scott Lazo MD 07/26/2022 21:23:20
[2022-07-26 01:40] LABS: Troponin I 0.05 ng/ml (0.00-0.034)
[2022-07-26 01:45] LABS: PTT Heparin (inpatient only) 98.7 Seconds (23.6-34.0)
--- NOTE | 2022-07-26 01:49 | PC.NURSE ---
Spoke with [employer]. No changes to heparin gtt. Continue at 2,000 units/hr. New PTT at 0400. Pt is resting in bed on Vapotherm 35L 50%. Diltiazem gtt on standby. Kurtis@ 90 mcg/min. Antibiotics infusing. Family at bedside.
--- NOTE | 2022-07-26 02:38 | EXP.EVENT.NO ---
On reevaluation patient appears more comfortable with better color to his face, no longer diaphoretic. He is currently off Cardizem with atrial fibrillation and controlled rate in the 80s. Oxygenating well on Vapotherm. Kurtis-Synephrine still infusing with mild improvement in blood pressure, able to titrate down Kurtis-Synephrine at this time. Patient does have cyanosis of his nailbeds and fingertips. Will obtain ABG at this time, patient in no distress at this time. Heparin infusing.
[2022-07-26 03:12] LABS: ABG Base Excess -1.5 mmol/L (-2.4-2.3); ABG HCO3 22.6 mmhg (22.0-26.0); ABG Oxygen Saturation 99 % (90-100); ABG PCO2 33.9 mmhg (35.0-45.0); ABG PH 7.44 mmol/L (7.35-7.45); ABG PO2 105.4 mmhg (80-100); ABG TCO2 23.7 mmhg (23-27)
[2022-07-26 03:13] LABS: Allen's Test Y; Oxygen 50 %
[2022-07-26 03:14] LABS: Source Left Radial
--- NOTE | 2022-07-26 04:19 | PC.NURSE ---
Pt remains off diltiazem gtt at this time. Kurtis continues currently at 90 mcg/min. Heparin is @ 2,000 units/hr. Pt remains on 30L 50% vapotherm. Pt soa at times. F/C draining to bedside with dark mitchel urine. 250 ml NS bolus ordered and carried out. Pt had a moderate size BM. Call light at bedside.
[2022-07-26 04:26] LABS: Basophils # 0.1 K/mm3 (0-0.2); Basophils % 0.4 % (0.1-2.0); Eosinophils # 0.2 K/mm3 (0.0-0.4); Eosinophils % 0.8 % (0.1-12.0); Hematocrit 50.1 % (42.0-52.0); Hemoglobin 16.1 g/dL (14.1-18.0); Lymphocytes # 0.4 K/mm3 (0.7-4.5); Lymphocytes % 1.9 % (10-50); Mean Corpuscular HGB Conc 32.1 g/dL (31.8-35.4); Mean Corpuscular Volume 96.3 fl (80-94); Monocytes # 0.6 K/mm3 (0.1-1.0); Monocytes % 3.2 % (1.7-9.3); Neutrophils % 93.8 % (37.0-80.0); Platelet Count 196 K/mm3 (142-424); Red Cell Distribution Width 14.5 % (11.5-17.5); White Blood Count 19.2 K/mm3 (4.8-10.8)
[2022-07-26 04:34] LABS: Anion Gap 19.1 mEq/L (5-15); Blood Urea Nitrogen 26 mg/dl (9-20); Calcium 7.8 mg/dl (8.4-10.2); Carbon Dioxide 27 mmol/L (22.0-30.0); Chloride 91 mmol/L (98-107); Chol/HDL Ratio 2.3 (1-3.5); Cholesterol 72 mg/dl (140-200); Creatinine Clearance Estimated 71 mL/min (50-200); Estimated Glomerular Filt Rate 32 ml/min (>60); GFR (African American) 39 ML/MIN (>60); Glucose 84 mg/dl (74-100); HDL Cholesterol 31 mg/dl (40-60); Magnesium 1.4 mg/dl (1.6-2.3); Potassium 4.1 mmoL/L (3.5-5.1); Sodium 133 mmol/L (136-145); Triglycerides 65 mg/dl (30-150); VLDL Cholesterol 13 mg/dL (0-40)
[2022-07-26 04:37] LABS: Lactic Acid 2.2 mmol/L (0.7-2.1)
[2022-07-26 04:45] LABS: Direct LDL Cholesterol < 30.00 mg/dL (100-129)
[2022-07-26 04:49] LABS: Procalcitonin 10.6 ng/mL (0.0-2.0)
[2022-07-26 05:08] LABS: PTT Heparin (inpatient only) 89.6 Seconds (23.6-34.0)
--- NOTE | 2022-07-26 05:26 | PC.NURSE ---
[facility] contacted for PTT 89.6. Decrease from 2000 units to 1750 units/hr. 35 ml. New aPTT 0930.
--- NOTE | 2022-07-26 07:49 | PC.NURSE ---
Diltiazem gtt restarted @ 5 mg. Kurtis on hold at this time. Pt is sitting in chair watching TV. No complaints stated. Call light within reach.
--- NOTE | 2022-07-26 08:09 | HMH.PHAHEP ---
[facility] Pharmacy Heparin Dosing Demographic Data Admission date:: 07/25/22 Date: 07/25/22 Time: 21:52 Allergies Allergy/AdvReac Type Severity Reaction Status Date / Time No Known Allergies Allergy Verified 07/26/22 08:10 Height: 1.83 m Weight: 136 kg Indication Medication therapy:: Heparin Current Indications:: PE Current Active Problems (Updated 07/27/22 @ 16:17 by Mason Frey MD) Morbid obesity (Chronic) Right bundle branch block (RBBB) (Acute) Hypertensive disorder (Acute) Hyperlipidemia (Acute) Pulmonary embolism (Acute) Acute exacerbation of chronic obstructive airways disease (Acute) Congestive heart failure (Acute) Atrial fibrillation with rapid ventricular response (Acute) Obesity (Acute) Acute respiratory failure with hypoxia (Acute) Sepsis (Acute) Acute on chronic congestive heart failure (Acute) NADER (acute kidney injury) (Acute) CVA?: No Bleeding problem?: No Kidney disease?: No MT?: No Desired PTT range:: 50-75 seconds Labs Anticoagulation Lab Results:: 07/25/22 07/26/22 20:00 04:00 Hgb 17.4 16.1 Hct 54.9 H 50.1 Plt Count 223 196 Monitoring Dose Monitor 1: Date: 07/25/22 Time: 21:52 PTT Result:: 31.2 Infusion Rate:: HEPARIN INFUSION STARTED AT 2000 UNITS/HR (40 ML/HR). [place] [address] [place]. Comment:: PLT 196K Dose Monitor 2: Date: 07/26/22 Time: 01:10 PTT Result:: 98.7 Infusion Rate:: HEPARIN DRIP CONTINUED AT 2000 UNITS/HR (40 ML/HR) Dose Monitor 3: Date: 07/26/22 Time: 04:00 PTT Result:: 89.6 Infusion Rate:: HEPARIN DRIP REDUCED AT 1750 UNITS/HR (35 ML/HR) Dose Monitor 4: Date: 07/26/22 Time: 09:30 PTT Result:: 73.1 Infusion Rate:: HEPARIN 1750 UNITS/HR (35 ML/HR) Dose Monitor 5: Date: 07/26/22 Time: 15:00 PTT Result:: 69.8 Infusion Rate:: HEPARIN 1750 UNITS/HR (35 ML/HR) Dose Monitor 6: Date: 07/26/22 Time: 19:00 PTT Result:: 66.1 Infusion Rate:: HEPARIN 1750 UNITS/HR (35 ML/HR) Dose Monitor 7: Date: 07/27/22 Time: 02:00 PTT Result:: 65.7 Infusion Rate:: HEPARIN 1750 UNITS/HR (35 ML/HR) Dose Monitor 8: Date: 07/27/22 Time: 08:30 PTT Result:: 63.5 Infusion Rate:: HEPARIN 1750 UNITS/HR (35 ML/HR) Comment:: PLT 176 K Dose Monitor 9: Date: 07/27/22 Time: 14:00 PTT Result:: 53.0 Infusion Rate:: HEPARIN 1750 UNITS/HR (35 ML/HR) Dose Monitor 10: Date: 07/27/22 Time: 20:00 PTT Result:: 51.0 Infusion Rate:: HEPARIN 1750 UNITS/HR (35 ML/HR) Dose Monitor 11: Date: 07/28/22 Time: 03:30 PTT Result:: 48.7 Infusion Rate:: HEPARIN 2000 UNITS/HR (40 ML/HR), HEPARIN 3000 UNIT BOLUS Dose Monitor 12: Date: 07/28/22 Time: 09:00 PTT Result:: 57.2 Infusion Rate:: HEPARIN 2000 UNITS/HR (40 ML/HR) Comment:: PLT 174K Dose Monitor 13: Date: 07/28/22 Time: 14:00 PTT Result:: 49.4 Infusion Rate:: MD STOPPING AT THIS POINT AND SWITCHING TO XARELTO. Core Measures Is INR > or = 2 at discharge?: No Most Recent Labs:: Laboratory Results - last 24 hr 07/25/22 19:57: Specimen Source Right radial, O2 % 10l, ABG pH 7.37, ABG pCO2 49.3 H, ABG pO2 95.5, ABG HCO3 28.0 H, ABG Total CO2 29.5 H, ABG O2 Saturation 98, ABG Base Excess 2.7 H, Devin Test Y 07/25/22 20:00: WBC 14.5 H, RBC 5.61, Hgb 17.4, Hct 54.9 H, MCV 97.9 H, MCH 31.1, MCHC 31.8, RDW 14.4, Plt Count 223, MPV 8.7, Neut % (Auto) 89.3 H, Lymph % (Auto) 5.7 L, Oldham % (Auto) 3.0, Eos % (Auto) 0.6, Baso % (Auto) 1.4, Neut # (Auto) 13.0 H, Lymph # (Auto) 0.8, Oldham # (Auto) 0.4, Eos # (Auto) 0.1, Baso # (Auto) 0.2, Total Counted 100, Neutrophils % (Manual) 76, Band Neutrophils % 17.0 H, Lymphocytes % (Manual) 6 L, Monocytes % (Ma
--- NOTE | 2022-07-26 08:10 | HMH.PHAINT1 ---
Pharmacy Intervention Comments: Home medication reconciliation completed using outpatient pharmacy list.
--- NOTE | 2022-07-26 09:10 | EXP.CARD.CON ---
History of Present Illness History of Present Illness Consult date: 07/26/22 Requesting physician: John Figueroa Consult reason: atrial fibrillation, known to you and shortness of breath Chief complaint: SOA Additional Medical History:: 1. Cardiac catheterization, 2016, EF normal with normal coronary arteries 2. History of atrial fibrillation with prior anticoagulation therapy 3. Morbid obesity 4. Hypertensive heart disease 5. Hyperlipidemia 6. History of diastolic congestive heart failure 7. CKD, stage III with creatinine 1.6 and GFR 44 on 07/25/2022 8. Chronic right bundle branch block on EKG History of present illness: This is a 62-year-old gentleman with past medical history of CHF, A. fib, HTN, HLD who presents emergency department today with complaints of shortness of breath.? He reports shortness of breath that began this morning and became acutely worse this afternoon.? He denies any fever or cough.? He does endorse chronic bilateral lower extremity edema but no increase from baseline.? He denies any chest pain.? Of note patient was prescribed Xarelto by cardiology but has not had it in several months due to cost.? Last heart cath in 2018, EF of 65%, no intervention necessary at that time. On arrival to the emergency department he was noted to be hypoxic with oxygen saturations in the 60s.? He was also noted to be in mild respiratory distress, A. fib with RVR with a heart rate of 160.? Work-up complete and notable for PE on CTA.? BNP elevated at 1900, lactic acid 2.0, NADER with a creatinine of 1.6, white blood cell count of 14.? COVID and flu negative.? He was noted to have mild hypotension with systolic in the 80s and 90s.? Febrile to 100.6.? Due to the above-mentioned complaints he is admitted to the hospital service for further evaluation and management. On my exam patient is diaphoretic, pale and short of breath.? He is on Vapotherm and oxygenating well.? It appears that patient is likely symptomatic to his A. fib with RVR.? Spoke with cardiology Dr. Nash, recommended phenylephrine drip for blood pressure support, Cardizem drip for heart rate control and heparin drip for PE.? He did receive Lasix in the emergency department.? Blood cultures obtained on admission and will initiate broad-spectrum antibiotics for community-acquired pneumonia given consolidation noted on chest x-ray and fever with leukocytosis.? At this point he does meet sepsis criteria but complicated secondary to history of CHF.? Will defer 30 mL/kg bolus in the setting of volume overload. The above per FLASH Gay for Dr. Guerrero Patient confirms events as noted above. He was last seen in our office in February 2021. As noted above, he discontinued his anticoagulation due to cost. This a.m. his breathing has improved but still remaining on Vapotherm. Heart rate is around 100 bpm with systolic blood pressure 90-100 mmHg. He is currently not on Kurtis-Synephrine. Diltiazem is going at 5 mg/h. EKG shows atrial fibrillation with mild RVR. Telemetry shows no significant arrhythmias. [facility] Medical History (Updated 07/26/22 @ 04:04 by Maya mSith RN) Atrial fibrillation CHF (congestive heart failure) History of left heart catheterization Hypertension Hypotension Peripheral vascular disease Surgical History (Updated 07/26/22 @ 04:04 by Maya Smith RN) History of hip replacement Previous back surgery Family History (Updated 07/26/22 @ 03:41 by Maya Smith RN) Adopted Social History (Updated 07/26/22 @ 03:41 by Maya Smith RN) Smoking Status: Never smoker second hand exposure: No alcohol intake: current current occupational status: employed and other Travel in the last 8 weeks: None Review of Systems Constitutional Constitutional: Denies headache(s) ENT Ears, Nose, Mouth, and Throat: Denies headache(s) *Cardiovascular Cardiovascular: Denies chest pain, Reports dyspnea, Reports dyspnea on exertion, Reports leg edema and Rep
--- NOTE | 2022-07-26 09:29 | CA_ITS ---
FINAL REPORT TECHNIQUE: Grayscale and color Doppler ultrasound images with graded compression of the deep venous system were obtained from the groin to the calf veins bilaterally. CLINICAL HISTORY: Pulmonary embolus, LE edema, morbid obesity. Limited scan due to body habitus. FINDINGS: The deep venous system is normal. There is no evidence of DVT. Flow and compressibility are normal. IMPRESSION: No evidence of left or right lower extremity DVT. Reviewed, Interpreted and Dictated by Johnathon Patrick III, MD Transcribed by Arelis Landrum Authenticated and [facility]
[2022-07-26 09:55] LABS: PTT Heparin (inpatient only) 73.1 Seconds (23.6-34.0)
--- NOTE | 2022-07-26 11:50 | PC.NURSE ---
0955 lab called with critical ptt on pt. 73.1. report to ann mauricio 0956. per scott wasserman at 1030 drip rate remains the same 1750 units
[2022-07-26 15:38] LABS: PTT Heparin (inpatient only) 69.8 Seconds (23.6-34.0)
--- NOTE | 2022-07-26 15:39 | PC.NURSE ---
Critical lab value PTT 69.8 reported at 1537. Spoke with arian in pharmacy who states to keep Heparin drip at current rate of 1750units
--- NOTE | 2022-07-26 16:38 | EXP.PN ---
Subjective *Date: 07/26/22 *Time: 16:38 Interval history: Patient sitting up in bedside chair this morning. He reports feeling much better, although he is still slightly tachypneic. Exam Data for Last 24 hours Vital signs and Labs for Last 24 Hours: Temp Pulse Resp BP Pulse Ox FiO2 98.1 F 90 20 112/70 98 45 07/26/22 08:00 07/26/22 14:00 07/26/22 14:00 07/26/22 14:00 07/26/22 14:00 07/26/22 12:00 Laboratory Results - last 24 hr 07/25/22 19:57: Specimen Source Right radial, O2 % 10l, ABG pH 7.37, ABG pCO2 49.3 H, ABG pO2 95.5, ABG HCO3 28.0 H, ABG Total CO2 29.5 H, ABG O2 Saturation 98, ABG Base Excess 2.7 H, Devin Test Y 07/25/22 20:00: WBC 14.5 H, RBC 5.61, Hgb 17.4, Hct 54.9 H, MCV 97.9 H, MCH 31.1, MCHC 31.8, RDW 14.4, Plt Count 223, MPV 8.7, Neut % (Auto) 89.3 H, Lymph % (Auto) 5.7 L, [place] % (Auto) 3.0, Eos % (Auto) 0.6, Baso % (Auto) 1.4, Neut # (Auto) 13.0 H, Lymph # (Auto) 0.8, [place] # (Auto) 0.4, Eos # (Auto) 0.1, Baso # (Auto) 0.2, Total Counted 100, Neutrophils % (Manual) 76, Band Neutrophils % 17.0 H, Lymphocytes % (Manual) 6 L, Monocytes % (Manual) 1 L, Platelet Estimate Normal, RBC Morphology Normal 07/25/22 20:00: Sodium 132 L, Potassium 4.6, Chloride 88 L, Carbon Dioxide 34 H, Anion Gap 14.6, BUN 20, Creatinine 1.60 H, Estimated Creat Clear 93, Estimated GFR 44 L, Est GFR ( Amer) 53 L, Glucose 90, Calcium 8.4, Troponin I 0.02, NT-Pro-B Natriuret Pep 1910 H 07/25/22 20:00: Total Bilirubin 2.3 H, Direct Bilirubin 0.5 H, Conjugated Bilirubin 0.0, Indirect Bilirubin 1.8 H, Unconjugated Bilirubin 1.8 H, AST 40, ALT 32, Alkaline Phosphatase 101, Total Protein 8.3 H, Albumin 4.2 07/25/22 20:00: Lactate 2.1 07/25/22 20:00: APTT 31.2 07/25/22 20:18: Urine Color Yellow, Urine Appearance Clear, Urine pH 5.5, Ur Specific [place] 1.020, Urine Protein 2+, Urine Glucose (UA) Negative, Urine Ketones Negative, Urine Blood Trace-i, Urine Nitrate Negative, Urine Bilirubin Negative, Urine Urobilinogen 1.0, Ur Leukocyte Esterase Negative, Urine RBC Occasional, Urine WBC Occasional, Ur Squamous Epith Cells 3-5, Urine Bacteria Trace 07/25/22 20:25: SARS-CoV-2 (PCR) Not detected, Influenza A Untype (PCR) Not detected, Influenza Type B (PCR) Not detected 07/25/22 23:00: Troponin I 0.06 H 07/25/22 23:00: Lactate 3.1 H 07/26/22 01:10: APTT 98.7 H* 07/26/22 01:10: Troponin I 0.05 H 07/26/22 01:10: Lactate 3.0 H 07/26/22 02:30: Specimen Source Left radial, O2 % 50, ABG pH 7.44, ABG pCO2 33.9 L, ABG pO2 105.4 H, ABG HCO3 22.6, ABG Total CO2 23.7, ABG O2 Saturation 99, ABG Base Excess -1.5, Devin Test Y 07/26/22 04:00: WBC 19.2 H D, RBC 5.20, Hgb 16.1, Hct 50.1, MCV 96.3 H, MCH 31.0, MCHC 32.1, RDW 14.5, Plt Count 196, MPV 9.0, Neut % (Auto) 93.8 H, Lymph % (Auto) 1.9 L, [place] % (Auto) 3.2, Eos % (Auto) 0.8, Baso % (Auto) 0.4, Neut # (Auto) 18.0 H, Lymph # (Auto) 0.4 L, [place] # (Auto) 0.6, Eos # (Auto) 0.2, Baso # (Auto) 0.1 07/26/22 04:00: Sodium 133 L, Potassium 4.1, Chloride 91 L, Carbon Dioxide 27, Anion Gap 19.1 H, BUN 26 H D, Creatinine 2.10 H D, Estimated Creat Clear 71, Estimated GFR 32 L, Est GFR ( Amer) 39 L D, Glucose 84, Calcium 7.8 L, Magnesium 1.4 L, Triglycerides 65, Cholesterol 72 L, LDL Cholesterol Direct < 30.00 L, VLDL Cholesterol 13, HDL Cholesterol 31 L, Cholesterol/HDL Ratio 2.3, Procalcitonin 10.6 H 07/26/22 04:00: Lactate 2.2 H 07/26/22 04:00: APTT 89.6 H* 07/26/22 09:20: APTT 73.1 H* 07/26/22 15:03: APTT 69.8 H* I & O for Last 24 hours: Intake & Output 07/23/22 07/24/22 07/25/22 07/26/22 23:59 23:59 23:59 23:59 Intake Total 1954 Output Total 300 / 300 Balance 1654 / 165 Weight 136.078 kg 136 kg Constitutional Constitutional: moderate distress (shortness of breath ), morbidly obese and chronically ill appearing *Routine HEENT Exam Head: Present normocephalic and atraumatic Eye: Present EOMI and PERRL ENT: Present mucous membranes moist *Routine Neck Exam Neck: Present supple, full ROM
--- NOTE | 2022-07-26 17:48 | PC.NURSE ---
pt has had a good day this shift. he has been up to the chair the entire shift. pt has appeared mildly dyspneic, but denies being so. lungs are clear with right upper lobe being slightly diminished. bowel sounds are active. evangelista cath is draining light mitchel colored urine. pt has had a large and a small bm this shift. pt ble continue to have 3+ tight pitting edema. pt family have been at bedside this shift. pt continues to be on heparin at 1750units/hr, and cardizem at 5mg. pt hr has been in the 80-110 range this shift but is still in atrial fibrillation. pt hr is noted to increase with exertion/getting up to the chair or bed. pt bp has remained stable and has not required the addition of the alfonzo-synephrine drip this shift.
[2022-07-26 19:37] LABS: PTT Heparin (inpatient only) 66.1 Seconds (23.6-34.0)
--- NOTE | 2022-07-26 19:46 | PC.NURSE ---
notified night watch of pt's ptt result of 66.1, per night watch no change to drip needed at this time, drip currently running at 1750units/hr, will order another aPTT for 6 hours from now
--- NOTE | 2022-07-26 20:13 | PC.NURSE ---
pt is on diltiazem at 5mg/hr, HR 97, bp 126/82, afib on tele monitor
--- NOTE | 2022-07-26 21:51 | PC.NURSE ---
pt arterial bp 113/45 (70), decreased levo drip to 4mcg/min
--- NOTE | 2022-07-26 23:06 | PC.NURSE ---
got pt back to bed from chair with 3 assists, call light within reach
[2022-07-27] VITALS (18 sets, daily range): BP systolic 113–161; BP diastolic 44–92; PULSE 83–120; RESP 18–46; TEMP 36.8–37.3; O2SAT 90–100; BMI 40.6
--- NOTE | 2022-07-27 01:06 | PC.NURSE ---
0000-pt had small bowel movement via bedpan 0030-got pt up to chair per pt's request with 2 assists
[2022-07-27 02:58] LABS: PTT Heparin (inpatient only) 65.7 Seconds (23.6-34.0)
--- NOTE | 2022-07-27 03:02 | PC.NURSE ---
notified night watch of pt's PTT result of 65.7, no change needed to heparin drip at this time, current rate is 1750units/hr; next ptt is due at 0900 and if therapeutic night watch stated can move to daily ptt's
[2022-07-27 05:49] LABS: Basophils # 0.1 K/mm3 (0-0.2); Basophils % 0.3 % (0.1-2.0); Eosinophils # 0.2 K/mm3 (0.0-0.4); Eosinophils % 0.8 % (0.1-12.0); Hematocrit 48.2 % (42.0-52.0); Hemoglobin 15.3 g/dL (14.1-18.0); Lymphocytes # 0.5 K/mm3 (0.7-4.5); Lymphocytes % 2.3 % (10-50); Mean Corpuscular HGB Conc 31.8 g/dL (31.8-35.4); Mean Corpuscular Hemoglobin 30.5 pg (27.0-31.2); Mean Corpuscular Volume 95.8 fl (80-94); Mean Platelet Volume 9.3 fl (7.4-10.4); Monocytes # 0.4 K/mm3 (0.1-1.0); Monocytes % 2.2 % (1.7-9.3); Neutrophils # 18.3 K/mm3 (1.8-7.8); Neutrophils % 94.4 % (37.0-80.0); Platelet Count 176 K/mm3 (142-424); Red Blood Count 5.03 M/mm3 (4.60-6.20); Red Cell Distribution Width 14.6 % (11.5-17.5); White Blood Count 19.4 K/mm3 (4.8-10.8)
[2022-07-27 05:51] LABS: MANUAL DIFFERENTIAL MANUAL DIFFERENTIAL (MANUAL DIFF)
[2022-07-27 05:53] LABS: Chloride 95 mmol/L (98-107); Potassium 3.7 mmoL/L (3.5-5.1); Sodium 131 mmol/L (136-145)
[2022-07-27 05:56] LABS: Alanine Aminotransferase 35 U/L (12-78); Albumin Level 3.4 g/dl (3.5-5.0); Albumin/Globulin Ratio 0.9 (1.1-1.8); Alkaline Phosphatase 78 U/L (38-126); Anion Gap 12.7 mEq/L (5-15); Aspartate Amino Transferase 88 U/L (17-59); Bilirubin,Total 0.8 mg/dl (0.2-1.3); Blood Urea Nitrogen 26 mg/dl (9-20); Calcium 7.7 mg/dl (8.4-10.2); Carbon Dioxide 27 mmol/L (22.0-30.0); Creatinine Clearance Estimated 136 mL/min (50-200); Estimated Glomerular Filt Rate 68 ml/min (>60); GFR (African American) 82 ML/MIN (>60); Globulin 3.7 g/dL (1.3-3.2); Glucose 134 mg/dl (74-100); Total Protein,Serum 7.1 g/dl (6.3-8.2)
[2022-07-27 06:05] LABS: Magnesium 2.2 mg/dl (1.6-2.3)
--- NOTE | 2022-07-27 06:52 | PC.NURSE ---
diltiazem at 5mg/hr and heparin at 1750units/hr
[2022-07-27 07:41] LABS: Lymphocytes % 6 % (10-50); Monocytes % 4 % (2-9); Neutrophils % 90 % (42-76); Total Cells Counted 100
[2022-07-27 07:42] LABS: Anisocytosis 1+; Macrocytosis 1+; Platelet Estimate Normal
--- NOTE | 2022-07-27 08:48 | EXP.CARD.PN ---
Subjective Subjective Date: 07/27/22 Time: 08:48 Principal diagnosis: PE Interval history: 62-year-old white male in bedside chair in no acute distress. Still with some conversational dyspnea but improving since slightly since yesterday. Telemetry shows A. fib with rate at 115 bpm but patient just returned from the bathroom. He remains on Vapotherm 20 L/min He remains on IV heparin and diltiazem at 5 mg/h Lower extremity venous Doppler yesterday negative for DVT. Limited echocardiogram yesterday, results pending Exam Data for Last 24 hours Vital signs and Labs for Last 24 Hours: Temp Pulse Resp BP Pulse Ox FiO2 98.3 F 116 H 46 H 128/72 100 35 07/27/22 08:00 07/27/22 08:00 07/27/22 08:00 07/27/22 08:00 07/27/22 08:00 07/27/22 08:00 Laboratory Results - last 24 hr 07/26/22 09:20: APTT 73.1 H* 07/26/22 15:03: APTT 69.8 H* 07/26/22 19:07: APTT 66.1 H* 07/27/22 02:15: APTT 65.7 H* 07/27/22 05:30: Magnesium 2.2 D 07/27/22 05:30: WBC 19.4 H, RBC 5.03, Hgb 15.3, Hct 48.2, MCV 95.8 H, MCH 30.5, MCHC 31.8, RDW 14.6, Plt Count 176, MPV 9.3, Neut % (Auto) 94.4 H, Lymph % (Auto) 2.3 L, [place] % (Auto) 2.2, Eos % (Auto) 0.8, Baso % (Auto) 0.3, Neut # (Auto) 18.3 H, Lymph # (Auto) 0.5 L, [place] # (Auto) 0.4, Eos # (Auto) 0.2, Baso # (Auto) 0.1, Total Counted 100, Neutrophils % (Manual) 90 H, Lymphocytes % (Manual) 6 L, Monocytes % (Manual) 4, Platelet Estimate Normal, Anisocytosis 1+, Macrocytosis 1+ 07/27/22 05:30: Sodium 131 L, Potassium 3.7, Chloride 95 L, Carbon Dioxide 27, Anion Gap 12.7, BUN 26 H, Creatinine 1.10 D, Estimated Creat Clear 136, Estimated GFR 68, Est GFR ( Amer) 82 D, Glucose 134 H, Calcium 7.7 L, Total Bilirubin 0.8, AST 88 H D, ALT 35, Alkaline Phosphatase 78, Total Protein 7.1, Albumin 3.4 L D, Globulin 3.7 H, Albumin/Globulin Ratio 0.9 L 07/27/22 05:30: Lactate 1.0 I & O for Last 24 hours: Intake & Output 07/24/22 07/25/22 07/26/22 07/27/22 11:59 11:59 11:59 11:59 Intake Total 1595 / 1595 1256 / 1256 Output Total 300 / 300 3325 / 3325 Balance 1295 / 1295 -2068 / -2068 Weight 299 lb 13.259 oz *Routine Respiratory Exam Respiratory: Present CTA bilaterally *Routine Cardiovascular Exam Cardiovascular: Present tachycardia and irregularly irregular; Absent murmur, gallop or rubs *Routine Neurological Exam Neurological: Present alert and oriented X3 Progress Note: A&P Assessment and plan (1) Acute respiratory failure with hypoxia: Status: Acute (2) Sepsis: Status: Acute (3) Pulmonary embolism: Status: Acute (4) Atrial fibrillation with rapid ventricular response: Status: Acute (5) Acute on chronic congestive heart failure: Status: Acute (6) Hyperlipidemia: Status: Acute (7) Hypertensive disorder: Status: Acute Assessment and Plan Assessment and Plan for All Diagnoses:: 1.? Acute right-sided pulmonary embolus.? Continue IV heparin.? CT of the chest shows an RV/LV index of 1 which would be indicative of RV strain.? Echo results pending. Dr. Nash returns tomorrow and will consider pulmonary embolectomy/debulking procedure. 2.? Atrial fibrillation with RVR, acute on chronic exacerbation related to pulmonary embolus, currently fairly well controlled on low-dose diltiazem IV (unable to go higher due to lability of blood pressure).? Convert to oral medication once more stable.? Currently on IV heparin for anticoagulation. 3.? Acute kidney injury related to diuretic therapy last evening.? Resolved. 4.? Abnormal EKG with chronic right bundle branch block.? 5.? CHF, acute on chronic diastolic congestive heart failure.? Acute exacerbation related to pulmonary embolus.? Cautious use of diuretics and IV fluids due to renal status, labile blood pressure 6.? Mild elevation of troponin secondary to pulmonary embolus creating cardiac strain.? Check echocardiogram to evaluate LV function. 7.? Prior cardiac catheterization, 2015, EF was normal with normal cor
[2022-07-27 09:31] LABS: PTT Heparin (inpatient only) 63.5 Seconds (23.6-34.0)
--- NOTE | 2022-07-27 09:36 | PC.NURSE ---
Received call from lab reporting PTT 63.5. Name and verified. Pharmacy ([facility]) updated. New order to keep Heparin gtt @ 1750 units/hr.
--- NOTE | 2022-07-27 14:45 | PC.NURSE ---
notified by [employer] dining car stewardess that PTT is 53.0. Contacted pharmacy ([facility]) and updated her. No new orders received.
--- NOTE | 2022-07-27 16:06 | EXP.ACUTE.PN ---
Subjective *Date: 07/27/22 *Time: 16:06 Interval history: Continues to complain of shortness of breath, though does feel its improving. Stable on Vapotherm at 20 L / 35%. Sitting in bedside chair on exam. Denies chest pain, nausea, vomiting, diarrhea. Denies any swelling in his legs. Currently has Evangelista catheter in place due to urinary incontinence prior to coming in that was a new symptom. Remains afebrile. Tolerating heparin drip without any overt bleeding. Cardiology saw patient this morning, appreciate their assistance in care. Medical Exam Vital signs and Labs for Last 24 Hours: Temp Pulse Resp BP Pulse Ox FiO2 99.2 F 109 H 31 H 132/92 H 95 35 07/27/22 12:00 07/27/22 14:00 07/27/22 14:00 07/27/22 14:00 07/27/22 14:00 07/27/22 14:00 Laboratory Results - last 24 hr 07/26/22 19:07: APTT 66.1 H* 07/27/22 02:15: APTT 65.7 H* 07/27/22 05:30: Magnesium 2.2 D 07/27/22 05:30: WBC 19.4 H, RBC 5.03, Hgb 15.3, Hct 48.2, MCV 95.8 H, MCH 30.5, MCHC 31.8, RDW 14.6, Plt Count 176, MPV 9.3, Neut % (Auto) 94.4 H, Lymph % (Auto) 2.3 L, [place] % (Auto) 2.2, Eos % (Auto) 0.8, Baso % (Auto) 0.3, Neut # (Auto) 18.3 H, Lymph # (Auto) 0.5 L, [place] # (Auto) 0.4, Eos # (Auto) 0.2, Baso # (Auto) 0.1, Total Counted 100, Neutrophils % (Manual) 90 H, Lymphocytes % (Manual) 6 L, Monocytes % (Manual) 4, Platelet Estimate Normal, Anisocytosis 1+, Macrocytosis 1+ 07/27/22 05:30: Sodium 131 L, Potassium 3.7, Chloride 95 L, Carbon Dioxide 27, Anion Gap 12.7, BUN 26 H, Creatinine 1.10 D, Estimated Creat Clear 136, Estimated GFR 68, Est GFR ( Amer) 82 D, Glucose 134 H, Calcium 7.7 L, Total Bilirubin 0.8, AST 88 H D, ALT 35, Alkaline Phosphatase 78, Total Protein 7.1, Albumin 3.4 L D, Globulin 3.7 H, Albumin/Globulin Ratio 0.9 L 07/27/22 05:30: Lactate 1.0 07/27/22 08:05: APTT 63.5 H* 07/27/22 14:15: APTT 53.0 H* I & O for Labs for Last 24 Hours: Intake & Output 07/24/22 07/25/22 07/26/22 07/27/22 23:59 23:59 23:59 23:59 Intake Total 2501 / 2851 1070 / 1070 Output Total 2375 / 2375 1250 / 1250 Balance 126 / 476 -180 / -180 Weight 136.078 kg 136 kg 136 kg Head: Present atraumatic and normocephalic ENT: Present normal exam Neck: Present normal inspection Respiratory: Present accessory muscle use, distant breath sounds and diminished air movement; Absent wheezes or crackles Cardiac: Present Reg Rate and Rhythm GI: Present soft; Absent distention or tenderness Comments:: obese Comment:: evangelista in place Extremities: Absent tenderness Skin: Present intact; Absent cyanosis, erythema, petechiae or ecchymosis Comment:: Chronic stasis dermatitis, darkening of the lower legs that is chronic, consistent with venous insufficiency Neuro: Present Cranial Nerve 2-12 Intact, alert, awake and oriented x 3 Assessment and Plan *Assessment and plan (1) Acute respiratory failure with hypoxia: Status: Acute Category: Medical Code(s): J96.01 - Acute respiratory failure with hypoxia (2) Sepsis: Status: Acute Category: Medical Code(s): A41.9 - Sepsis, unspecified organism (3) Pulmonary embolism: Status: Acute Category: Medical Code(s): I26.99 - Other pulmonary embolism without acute cor pulmonale (4) Atrial fibrillation with rapid ventricular response: Status: Acute Category: Medical Code(s): I48.91 - Unspecified atrial fibrillation (5) Acute on chronic congestive heart failure: Status: Acute Category: Medical Code(s): I50.9 - Heart failure, unspecified (6) Hyperlipidemia: Status: Acute Qualifiers: Hyperlipidemia type: unspecified Qualified Code(s): E78.5 - Hyperlipidemia, unspecified Category: Medical Code(s): E78.5 - Hyperlipidemia, unspecified (7) Hypertensive disorder: Status: Acute Qualifiers: Hypertension type: essential hypertension Qualified Code(s): I10 - Essential (primary) hyper
--- NOTE | 2022-07-27 18:15 | PC.NURSE ---
shift summary: GCS 15. Has been in chair for most of the day. Uses cane and 1 person assist to transition from chair to BSC. No BM this shift. Kwok catheter noted. UOP adequate. Continues on Vapotherm 20L/35%. Denies dyspnea and pain. Tolerates a low sodium diet. Afib on tele with rate 90-100s. Has been normotensive. Diltiazem gtt @ 5mg/hr and Heparin gtt @ 1750 units/hr. Next PTT due @ 1999.
[2022-07-27 18:40] LABS: Troponin I < 0.01 ng/ml (0.00-0.034)
--- NOTE | 2022-07-27 21:17 | PC.NURSE ---
Spoke with Nightwatch about aPTT. No changes to heparin gtt. New PTT in 6 hrs.
[2022-07-28] VITALS (13 sets, daily range): BP systolic 127–160; BP diastolic 74–97; PULSE 70–100; RESP 18–24; TEMP 36.6–37.1; O2SAT 93–98; BMI 40.6; BMI 53.6
[2022-07-28 03:51] LABS: PTT Heparin (inpatient only) 48.7 Seconds (23.6-34.0)
[2022-07-28 03:54] LABS: Basophils # 0.1 K/mm3 (0-0.2); Basophils % 0.4 % (0.1-2.0); Chloride 97 mmol/L (98-107); Eosinophils # 0.1 K/mm3 (0.0-0.4); Eosinophils % 0.5 % (0.1-12.0); Hematocrit 46.5 % (42.0-52.0); Hemoglobin 14.6 g/dL (14.1-18.0); Lymphocytes # 0.8 K/mm3 (0.7-4.5); Lymphocytes % 6.7 % (10-50); Mean Corpuscular HGB Conc 31.4 g/dL (31.8-35.4); Mean Corpuscular Hemoglobin 30.7 pg (27.0-31.2); Mean Corpuscular Volume 97.9 fl (80-94); Mean Platelet Volume 9.6 fl (7.4-10.4); Monocytes # 0.4 K/mm3 (0.1-1.0); Monocytes % 3.2 % (1.7-9.3); Neutrophils % 89.2 % (37.0-80.0); Platelet Count 174 K/mm3 (142-424); Potassium 4.3 mmoL/L (3.5-5.1); Red Blood Count 4.74 M/mm3 (4.60-6.20); Red Cell Distribution Width 14.5 % (11.5-17.5); Sodium 136 mmol/L (136-145); White Blood Count 12.4 K/mm3 (4.8-10.8)
[2022-07-28 03:57] LABS: Alanine Aminotransferase 45 U/L (12-78); Albumin Level 3.1 g/dl (3.5-5.0); Albumin/Globulin Ratio 0.9 (1.1-1.8); Alkaline Phosphatase 74 U/L (38-126); Anion Gap 16.3 mEq/L (5-15); Aspartate Amino Transferase 124 U/L (17-59); Bilirubin,Total 0.8 mg/dl (0.2-1.3); Blood Urea Nitrogen 20 mg/dl (9-20); Carbon Dioxide 27 mmol/L (22.0-30.0); Creatinine Clearance Estimated 149 mL/min (50-200); Estimated Glomerular Filt Rate 98 ml/min (>60); GFR (African American) 119 ML/MIN (>60); Globulin 3.4 g/dL (1.3-3.2); Glucose 94 mg/dl (74-100); MANUAL DIFFERENTIAL MANUAL DIFFERENTIAL (MANUAL DIFF); Total Protein,Serum 6.5 g/dl (6.3-8.2)
[2022-07-28 04:27] LABS: Magnesium 2.4 mg/dl (1.6-2.3)
--- NOTE | 2022-07-28 04:30 | PC.NURSE ---
Spoke with nightwatch about PTT 48.7. New orders received to give pt 3,000 unit bolus and increase heparin gtt to 2,000 units/hr. Obtain new PTT at 1000. Pt is resting in chair at this time. Has slept at intervals this shift. He remains on Vapotherm 20L 35%. Lungs are diminished. Pt remains on Diltiazem gtt @ 5 mg/hr. HR 90s-110s. BP stable. F/C draining with clear, yellow urine. Call light within reach.
[2022-07-28 05:29] LABS: Lymphocytes % 13 % (10-50); Monocytes % 3 % (2-9); Neutrophils % 84 % (42-76); Total Cells Counted 100
[2022-07-28 05:31] LABS: Macrocytosis 1+; Platelet Estimate Normal
[2022-07-28 06:31] LABS: Lactic Acid 0.9 mmol/L (0.7-2.1)
--- NOTE | 2022-07-28 09:42 | EXP.CARD.PN ---
Subjective Subjective Date: 07/28/22 Time: 09:43 Principal diagnosis: PE Interval history: 62-year-old white male in bedside chair in no acute distress. Continues to improve clinically with decreasing oxygen requirements. Blood pressure is controlled and improved with low-dose diltiazem which is maintaining control of his heart rate with rates in the 80s and 90s on telemetry. He continues on IV heparin. Telemetry is A. fib with controlled ventricular response. Exam Data for Last 24 hours Vital signs and Labs for Last 24 Hours: Temp Pulse Resp BP Pulse Ox FiO2 97.9 F 96 H 18 127/87 96 35 07/28/22 04:39 07/28/22 06:00 07/28/22 06:00 07/28/22 06:00 07/28/22 06:30 07/28/22 06:30 Laboratory Results - last 24 hr 07/27/22 14:15: APTT 53.0 H* 07/27/22 17:51: Troponin I < 0.01 07/27/22 20:05: APTT 51.0 H* 07/28/22 03:30: WBC 12.4 H D, RBC 4.74, Hgb 14.6, Hct 46.5, MCV 97.9 H, MCH 30.7, MCHC 31.4 L, RDW 14.5, Plt Count 174, MPV 9.6, Neut % (Auto) 89.2 H, Lymph % (Auto) 6.7 L, [place] % (Auto) 3.2, Eos % (Auto) 0.5, Baso % (Auto) 0.4, Neut # (Auto) 11.0 H, Lymph # (Auto) 0.8, [place] # (Auto) 0.4, Eos # (Auto) 0.1, Baso # (Auto) 0.1, Total Counted 100, Neutrophils % (Manual) 84 H, Lymphocytes % (Manual) 13, Monocytes % (Manual) 3, Platelet Estimate Normal, Macrocytosis 1+ 07/28/22 03:30: Sodium 136, Potassium 4.3, Chloride 97 L, Carbon Dioxide 27, Anion Gap 16.3 H, BUN 20, Creatinine 0.80 D, Estimated Creat Clear 149, Estimated GFR 98, Est GFR ( Amer) 119 D, Glucose 94 D, Calcium 8.0 L, Total Bilirubin 0.8, AST 124 H D, ALT 45 D, Alkaline Phosphatase 74, Total Protein 6.5, Albumin 3.1 L, Globulin 3.4 H, Albumin/Globulin Ratio 0.9 L 07/28/22 03:30: Magnesium 2.4 H 07/28/22 03:30: APTT 48.7 H 07/28/22 06:07: Lactate 0.9 I & O for Last 24 hours: Intake & Output 07/25/22 07/26/22 07/27/22 07/28/22 11:59 11:59 11:59 11:59 Intake Total 1595 / 1595 1616 / 1616 2425 / 2425 Output Total 300 / 300 3325 / 3325 3176 / 3176 Balance 1295 / 1295 -1709 / -1709 -751 / -751 Weight 299 lb 13.259 oz 299 lb 13.259 oz Microbiology Reports for the Last 24 Hours: Microbiology 07/25/22 20:00 Blood Blood Culture - Preliminary NO GROWTH AFTER 48 HOURS 07/25/22 20:00 Blood Blood Culture - Preliminary NO GROWTH AFTER 48 HOURS Constitutional Constitutional: no acute distress *Routine Respiratory Exam Respiratory: Present decreased breath sounds; Absent rhonchi or wheezes *Routine Cardiovascular Exam Cardiovascular: Present irregularly irregular; Absent murmur, gallop or rubs *Routine Extremities Exam Extremities: Present edema *Routine Neurological Exam Neurological: Present alert and oriented X3 Progress Note: A&P Assessment and plan (1) Acute respiratory failure with hypoxia: Status: Acute (2) Sepsis: Status: Acute (3) Pulmonary embolism: Status: Acute (4) Atrial fibrillation with rapid ventricular response: Status: Acute (5) Acute on chronic congestive heart failure: Status: Acute (6) Hyperlipidemia: Status: Acute (7) Hypertensive disorder: Status: Acute (8) Morbid obesity: Status: Chronic Assessment and Plan Assessment and Plan for All Diagnoses:: 1.? Acute right-sided pulmonary embolus.? Continue IV heparin.? CT of the chest shows an RV/LV index of 1 which would be indicative of RV strain.? Echo was a technically difficult study with limited information obtained.. Dr. Nash reviewed CTA of the chest and since patient is clinically improving, no attempt at pulmonary embolectomy will be made. Patient has transitioned from Vapotherm to nasal cannula while maintaining adequate oxygenation. 2.? Atrial fibrillation with RVR, acute on chronic exacerbation related to pulmonary embolus, currently fairly well controlled on low-dose diltiazem IV (unable to go higher due to lability of blood pressure).? Convert
[2022-07-28 09:43] LABS: PTT Heparin (inpatient only) 57.2 Seconds (23.6-34.0)
--- NOTE | 2022-07-28 12:06 | EXP.ACUTE.PN ---
Subjective *Date: 07/28/22 *Time: 12:09 Interval history: Complains of improving shortness of breath. Patient denies any chest pain, nausea, palpitations. A. fib remains controlled. Oxygen requirement continues to improve. Transition to nasal cannula oxygen this morning on rounds. Tolerating 4 to 5 L. Cardiology evaluated patient this morning, as he has distal flow on CTA (around clot), plan for medical management instead of thrombectomy. Patient tolerating p.o. intake. Afebrile and hemodynamically stable. Medical Exam Vital signs and Labs for Last 24 Hours: Vital Signs Temp Pulse Pulse Resp BP Pulse Ox FiO2 07/28/22 10:00 87 20 136/97 H 97 07/28/22 08:00 97 07/28/22 08:00 80 20 150/82 H 98 35 07/28/22 06:00 96 H 18 127/87 94 L 35 07/28/22 06:00 90 07/28/22 06:30 96 35 07/28/22 04:00 96 35 07/28/22 04:39 97.9 F 07/28/22 00:00 100 H 07/27/22 20:00 90 07/28/22 02:00 95 H 24 130/74 94 L 35 07/28/22 00:00 98.7 F 95 H 24 130/74 93 L 35 07/27/22 22:00 83 24 135/78 95 35 07/27/22 20:00 97 35 07/27/22 20:00 98.4 F 91 H 25 H 143/66 H 97 35 07/27/22 19:22 95 35 07/27/22 18:00 107 H 32 H 142/72 H 95 35 07/27/22 16:00 98.7 F 101 H 41 H 122/44 L 95 35 07/27/22 15:58 90 07/27/22 14:00 109 H 31 H 132/92 H 95 35 Intake and Output 07/27/22 07/28/22 07/28/22 23:59 07:59 15:59 Intake Total 1244 / 2314 821 / 821 Output Total 1350 / 2601 1826 / 1826 0 / 1826 Balance -106 / -287 -1005 / -1005 0 / -1005 Intake: Intake, Oral Amount 240 / 960 Intake, Total IV Amount 1004 / 1354 821 / 821 Azithromycin 500 mg In 0.9 % 250 / 250 Sodium Chloride 250 ml @ 250 mls/hr IV Q24H [facility] Rx#:[id number] Ceftriaxone Sodium 1 gm In 0.9 100 / 100 % Sodium Chloride 50 ml @ 100 mls/hr IV Q24H [facility] Rx#:[id number] Heparin Sodium,Porcine/D5w 500 877 / 877 413 / 413 ml @ 2,000 UNITS/HR 40 mls/hr IV .[id number] [facility] Rx#:[id number] dilTIAZem HCL 100 mg In 0.9 % 127 / 127 58 / 58 Sodium Chloride 100 ml @ 5 mls/ hr IV .Q20H [facility] Rx#:[id number] Output: Output, Urine Amount 0 / 1251 1826 / 1826 0 / 1826 Output, Urine Amount (Catheter) 1350 / 1350 Kw[place] 1350 / 1350 Other: Number of Unmeasured Voids 0 0 0 Weight 136 kg 179.623 kg Patient Weight 07/28/22 23:59 Weight 179.623 kg Laboratory Results - last 24 hr 07/27/22 14:15: APTT 53.0 H* 07/27/22 17:51: Troponin I < 0.01 07/27/22 20:05: APTT 51.0 H* 07/28/22 03:30: WBC 12.4 H D, RBC 4.74, Hgb 14.6, Hct 46.5, MCV 97.9 H, MCH 30.7, MCHC 31.4 L, RDW 14.5, Plt Count 174, MPV 9.6, Neut % (Auto) 89.2 H, Lymph % (Auto) 6.7 L, [place] % (Auto) 3.2, Eos % (Auto) 0.5, Baso % (Auto) 0.4, Neut # (Auto) 11.0 H, Lymph # (Auto) 0.8, [place] # (Auto) 0.4, Eos # (Auto) 0.1, Baso # (Auto) 0.1, Total Counted 100, Neutrophils % (Manual) 84 H, Lymphocytes % (Manual) 13, Monocytes % (Manual) 3, Platelet Estimate Normal, Macrocytosis 1+ 07/28/22 03:30: Sodium 136, Potassium 4.3, Chloride 97 L, Carbon Dioxide 27, Anion Gap 16.3 H, BUN 20, Creatinine 0.80 D, Estimated Creat Clear 149, Estimated GFR 98, Est GFR ( Amer) 119 D, Glucose 94 D, Calcium 8.0 L, Total Bilirubin 0.8, AST 124 H D, ALT 45 D, Alkaline Phosphatase 74, Total Protein 6.5, Albumin 3.1 L, Globulin 3.4 H, Albumin/Globulin Ratio 0.9 L 07/28/22 03:30: Magnesium 2.4 H 07/28/22 03:30: APTT 48.7 H 07/28/22 06:07: Lactate 0.9 07/28/22 09:26: APTT 57.2 H* I & O for Labs for Last 24 Hours: Intake & Output 07/25/22 07/26/22 07/27/22 07/28/22 23:59 23:59 23:59 23:59 Intake Total 2501 / 2851 2314 / 2314 821 / 821 Output Total 2375 / 2375 2600 / 2601 1826 / 1826 Balance 126 / 476 -286 / -287 -1005 / -1005 Weight 136.078 kg 136 kg 136 kg 179.623 kg Microbiology Reports for the Last 24 Hours: Microbiology 07/25/22
[2022-07-28 14:31] LABS: PTT Heparin (inpatient only) 49.4 Seconds (23.6-34.0)
--- NOTE | 2022-07-28 16:43 | PC.NURSE ---
Patient has been up to chair for most of the shift, weaned to 5LNC this shift and tolerating well, transitioned from IV cardizem and heparin to oral meds, remains in afib per telemetry with controlled rate, FC discontinued this shift, voids per urinal without difficulty, bp has remained stable, denies any soa or cp, 2+ pitting edema noted to ble, hyperpigmentation noted to ble, no bm noted this shift, vss, bed in lowest position with call light in reach.
--- NOTE | 2022-07-28 19:03 | PC.NURSE ---
turned o2 down to 3lpm n/c
[2022-07-29] VITALS: BP 123/65; PULSE 64; PULSE 90; RESP 16; TEMP 36.6; O2SAT 96
[2022-07-29 04:00] VITALS: BP 176/79; PULSE 84; PULSE 90; RESP 17; TEMP 36.6; O2SAT 96
--- NOTE | 2022-07-29 04:37 | PC.NURSE ---
Pt has had incontinent episodes of urine this shift. Denies any soa. O2 titrated t/o shift. O2 sats in mid 90s on RA. Pt O2 checked after ambulating to BR and was able to maintain sats in mid 90s. He remains controlled afib on telemetry. BLE are edematous. More on (L) then (R). Pt has c/o tightness to (L) extremity. Swelling noted to calf. Pt up to chair. Call light within reach.
[2022-07-29 05:00] VITALS: BMI 54.0
[2022-07-29 07:04] LABS: Basophils % 0.3 % (0.1-2.0); Eosinophils # 0.1 K/mm3 (0.0-0.4); Eosinophils % 0.7 % (0.1-12.0); Hematocrit 45.5 % (42.0-52.0); Hemoglobin 14.6 g/dL (14.1-18.0); Lymphocytes # 1.2 K/mm3 (0.7-4.5); Lymphocytes % 12.9 % (10-50); Mean Corpuscular HGB Conc 32.1 g/dL (31.8-35.4); Mean Corpuscular Volume 96.6 fl (80-94); Mean Platelet Volume 10.5 fl (7.4-10.4); Monocytes # 0.3 K/mm3 (0.1-1.0); Monocytes % 3.5 % (1.7-9.3); Neutrophils # 7.9 K/mm3 (1.8-7.8); Neutrophils % 82.6 % (37.0-80.0); Platelet Count 211 K/mm3 (142-424); Red Blood Count 4.71 M/mm3 (4.60-6.20); Red Cell Distribution Width 14.7 % (11.5-17.5); White Blood Count 9.6 K/mm3 (4.8-10.8)
[2022-07-29 07:11] LABS: Chloride 95 mmol/L (98-107); Sodium 134 mmol/L (136-145)
[2022-07-29 07:13] LABS: Blood Urea Nitrogen 18 mg/dl (9-20); Creatinine Clearance Estimated 85 mL/min (50-200); Estimated Glomerular Filt Rate 98 ml/min (>60); GFR (African American) 119 ML/MIN (>60)
[2022-07-29 07:14] LABS: Alanine Aminotransferase 86 U/L (12-78); Albumin Level 3.6 g/dl (3.5-5.0); Albumin/Globulin Ratio 0.9 (1.1-1.8); Alkaline Phosphatase 124 U/L (38-126); Aspartate Amino Transferase 142 U/L (17-59); Bilirubin,Total 0.8 mg/dl (0.2-1.3); Calcium 8.3 mg/dl (8.4-10.2); Carbon Dioxide 32 mmol/L (22.0-30.0); Globulin 3.8 g/dL (1.3-3.2); Glucose 80 mg/dl (74-100); Total Protein,Serum 7.4 g/dl (6.3-8.2)
[2022-07-29 07:52] LABS: Magnesium 2.1 mg/dl (1.6-2.3)
[2022-07-29 08:00] VITALS: BP 156/98; PULSE 106; RESP 18; TEMP 37; O2SAT 97; O2SAT 98
--- NOTE | 2022-07-29 08:02 | EXP.CARD.PN ---
Subjective Subjective Date: 07/29/22 Time: 08:02 Principal diagnosis: PE Interval history: 62-year-old white male in bedside chair in no acute distress. Continues to clinically improve. He has been off of supplemental oxygen and maintaining adequate oxygenation overnight. He does complain of some left calf discomfort with increase in size. It is warm to touch. He does have an ulcerated area on the lateral side of the left calf. Blood pressure now elevated, will begin to resume some of his home medications. Exam Data for Last 24 hours Vital signs and Labs for Last 24 Hours: Temp Pulse Resp BP Pulse Ox FiO2 97.9 F 84 17 176/79 H 96 35 07/29/22 04:00 07/29/22 04:00 07/29/22 04:00 07/29/22 04:00 07/29/22 04:00 07/28/22 08:00 Laboratory Results - last 24 hr 07/28/22 09:26: APTT 57.2 H* 07/28/22 13:57: APTT 49.4 H 07/29/22 05:54: WBC 9.6, RBC 4.71, Hgb 14.6, Hct 45.5, MCV 96.6 H, MCH 31.0, MCHC 32.1, RDW 14.7, Plt Count 211, MPV 10.5 H, Neut % (Auto) 82.6 H, Lymph % (Auto) 12.9, [place] % (Auto) 3.5, Eos % (Auto) 0.7, Baso % (Auto) 0.3, Neut # (Auto) 7.9 H, Lymph # (Auto) 1.2, [place] # (Auto) 0.3, Eos # (Auto) 0.1, Baso # (Auto) 0.0 07/29/22 05:54: Sodium 134 L, Potassium 4.0, Chloride 95 L, Carbon Dioxide 32 H, Anion Gap 11.0, BUN 18, Creatinine 0.80, Estimated Creat Clear 85, Estimated GFR 98, Est GFR ( Amer) 119, Glucose 80, Calcium 8.3 L, Total Bilirubin 0.8, AST 142 H, ALT 86 H D, Alkaline Phosphatase 124, Total Protein 7.4, Albumin 3.6 D, Globulin 3.8 H, Albumin/Globulin Ratio 0.9 L 07/29/22 05:54: Magnesium 2.1 D I & O for Last 24 hours: Intake & Output 07/26/22 07/27/22 07/28/22 07/29/22 11:59 11:59 11:59 11:59 Intake Total 1595 / 1595 1616 / 1616 2425 / 2425 866 / 866 Output Total 300 / 300 3325 / 3325 3176 / 3176 1904 / 1904 Balance 1295 / 1295 -1709 / -1709 -751 / -751 -1038 / -1038 Weight 299 lb 13.259 oz 396 lb 399 lb Constitutional Constitutional: no acute distress *Routine Respiratory Exam Respiratory: Present decreased breath sounds and CTA bilaterally *Routine Cardiovascular Exam Cardiovascular: Present irregularly irregular *Routine Extremities Exam Extremities: Present edema and calf tenderness; Absent cyanosis Comments: Left calf visually larger than the right and warm to touch compared to right Progress Note: A&P Assessment and plan (1) Acute respiratory failure with hypoxia: Status: Acute (2) Pulmonary embolism: Status: Acute (3) Atrial fibrillation with rapid ventricular response: Status: Acute (4) Acute on chronic congestive heart failure: Status: Acute (5) Hyperlipidemia: Status: Acute (6) Hypertensive disorder: Status: Acute (7) Morbid obesity: Status: Chronic (8) Tenderness of left calf: Status: Acute (9) Sepsis: Status: Acute Assessment and Plan Assessment and Plan for All Diagnoses:: 1.? Acute right-sided pulmonary embolus.? Now on Xarelto.? CT of the chest shows an RV/LV index of 1 which would be indicative of RV strain.? Echo was a technically difficult study with limited information obtained. Dr. Nash reviewed CTA of the chest and since patient is clinically improving, no attempt at pulmonary embolectomy will be made. Patient maintaining oxygenation on room air now. 2.? Atrial fibrillation with RVR, acute on chronic exacerbation related to pulmonary embolus. Rate controlled on diltiazem 120 mg daily. We will add back Coreg 6.25 mg daily for blood pressure control also. 3.? Acute kidney injury.? Resolved. 4.? Abnormal EKG with chronic right bundle branch block.? 5.? CHF, acute on chronic diastolic congestive heart failure.? Acute exacerbation related to pulmonary embolus.? Resume Lasix 40 mg daily. 6.? Mild elevation of troponin secondary to pulmonary embolus creating cardiac strain.? Limited echo was technically difficult with no beneficial assessment of LV function but no invasive testing at this time.
--- NOTE | 2022-07-29 08:32 | EXP.DC.SUM ---
General Admission date:: 07/25/22 Discharge date: 07/29/22 HPI HPI HPI: This is a 62-year-old gentleman with past medical history of CHF, A. fib, HTN, HLD who presents emergency department today with complaints of shortness of breath.? He reports shortness of breath that began this morning and became acutely worse this afternoon.? He denies any fever or cough.? He does endorse chronic bilateral lower extremity edema but no increase from baseline.? He denies any chest pain.? Of note patient was prescribed Xarelto by cardiology but has not had it in several months due to cost.? Last heart cath in 2018, EF of 65%, no intervention necessary at that time. On arrival to the emergency department he was noted to be hypoxic with oxygen saturations in the 60s.? He was also noted to be in mild respiratory distress, A. fib with RVR with a heart rate of 160.? Work-up complete and notable for PE on CTA.? BNP elevated at 1900, lactic acid 2.0, NADER with a creatinine of 1.6, white blood cell count of 14.? COVID and flu negative.? He was noted to have mild hypotension with systolic in the 80s and 90s.? Febrile to 100.6.? Due to the above-mentioned complaints he is admitted to the hospital service for further evaluation and management. On exam patient is diaphoretic, pale and short of breath.? He is on Vapotherm and oxygenating well.? It appears that patient is likely symptomatic to his A. fib with RVR.? Spoke with cardiology Dr. Nash, recommended phenylephrine drip for blood pressure support, Cardizem drip for heart rate control and heparin drip for PE.? He did receive Lasix in the emergency department.? Blood cultures obtained on admission and will initiate broad-spectrum antibiotics for community-acquired pneumonia given consolidation noted on chest x-ray and fever with leukocytosis.? At this point he does meet sepsis criteria but complicated secondary to history of CHF.? Will defer 30 mL/kg bolus in the setting of volume overload. Hospital Course Hospital Course Hospital Course: 62-year-old male, morbidly obese.? Presented with acute hypoxemic respiratory failure secondary to pulmonary embolus.? Started on heparin drip and supplemental oxygen with transition to Xarelto for oral treatment as patient clinically improved. Patient able to wean off of oxygen therapy during admission and remained hemodynamically stable. Cardiology consulted during admission, appreciate their assistance in care. Patient on room air and oral anticoagulation at time of discharge. Will need close follow-up with primary care and cardiology. Plan to medically manage PE moving forward. Patient with prior history of DVTs, will need long-term oral anticoagulation. Discharged home in stable condition. Problems during hospitalization addressed as follows: Acute respiratory failure with hypoxia Severe sepsis, resolved Pulmonary emboli -Initially started on BiPAP, gradually weaned to Vapotherm and the nasal cannula oxygen. Able to maintain saturations greater than 90%. Weaned off oxygen supplementation on day of discharge. O2 sats in the mid 90s on room air. Antibiotics initiated for pneumonia. Treated with azithromycin and cefdinir. Respiratory failure felt to be multifactorial secondary to PE, PNA, A. fib with RVR, and volume overload. -We will complete oral antibiotics at time of discharge. Transitioned to Bactrim out of concern for development of cellulitis in left lower leg on current antibiotic regimen. Had swelling of left lateral leg within 24 hours of discharge. [place] to be secondary to wound on leg. Wound was present on admission. Will complete empiric course with Bactrim double strength twice daily. Acute on chronic congestive heart failure A. fib with RVR Chronic right bundle branch block -Initially on diltiazem drip. Improved heart rate control unable to transition oral diltiazem. Diuresed after stabilizing. Had adequate urine output. Remained euvolemic during hospitalization.
--- NOTE | 2022-07-29 10:40 | CT_ITS ---
FINAL REPORT CLINICAL HISTORY: lt lower leg swelling, hematoma? FINDINGS: CT LEFT LOWER LEG WITHOUT CONTRAST TECHNIQUE: Axial, reformatted, and 3D images were obtained of the left lower leg. This study was performed with techniques to keep radiation doses as low as reasonably achievable, (ALARA). Individualized dose reduction techniques using automated exposure control or adjustment of mA and/or kV according to the patient's size were employed. FINDINGS: No fracture is identified. There are mild degenerative changes. Moderate degenerative changes are noted in the midfoot. There is no bony mass. There are calcaneal spurs. There is circumferential subcutaneous stranding throughout the lower leg, ankle, and foot consistent with edema or cellulitis. There is no focal fluid collection to suggest abscess. There are multiple soft tissue calcifications in the lower leg. IMPRESSION: Findings consistent with edema or cellulitis in the lower leg, ankle, and foot. No focal fluid collection to suggest abscess. Mild and moderate degenerative changes as above. Reviewed, Interpreted and Dictated by Johnathon Patrick III, MD Transcribed by Anjana Prabhakar Authenticated and . [facility]
[2022-07-29 12:00] VITALS: BP 130/84; PULSE 97; RESP 16; TEMP 36.6; O2SAT 97
--- NOTE | 2022-08-02 12:51 | CARE MANAGER ---
Patient states that his legs are worse in regards to swelling, but thinks it because his diuretic was decreased at discharge. He has appointment with Alisha Suh [facility] later this afternoon. He is aware of appt with cardiology. Denies any questions or concerns.
== END 2022-07-29 16:30 | disposition home or self-care (01) | DRG 871 ==
LOC: ER 21:39 → 2ND 23:01
PROVIDERS: Emergency Medicine; Internal Medicine Adolescent Medicine; Nurse Practitioner Acute Care; Nurse Practitioner Family; Admitting Provider Emergency Medicine; Emergency Provider Emergency Medicine; PCP Nurse Practitioner Family; Visit Provider Emergency Medicine
DX: A41.9 Sepsis, unspecified organism (principal); I26.99 Other pulmonary embolism without acute cor pulmonale; J96.01 Acute respiratory failure with hypoxia; I50.33 Acute on chronic diastolic (congestive) heart failure; R65.21 Severe sepsis with septic shock; J44.1 Chronic obstructive pulmonary disease with (acute) exacerbation; Z68.43 Body mass index [BMI] 50.0-59.9, adult; N17.9 Acute kidney failure, unspecified; I50.9 Heart failure, unspecified; I48.91 Unspecified atrial fibrillation; E78.5 Hyperlipidemia, unspecified; E66.01 Morbid (severe) obesity due to excess calories; I12.9 Hypertensive chronic kidney disease with stage 1 through stage 4 chronic kidney disease, or unspecified chronic kidney disease; N18.30 Chronic kidney disease, stage 3 unspecified; I73.9 Peripheral vascular disease, unspecified; Z96.649 Presence of unspecified artificial hip joint; E83.42 Hypomagnesemia; M79.662 Pain in left lower leg; M79.89 Other specified soft tissue disorders
CPT/HCPCS: 36415; 51702; 71045; 71275; 73700; 80048; 80053; 80061; 80076; 81001; 82803; 83605; 83735; 83880; 84145; 84484; 85007; 85025; 85730; 87040; 93005; 93308; 93970; 94760; 99285; C9803; J0456; J0696; J2405; J3475; Q9967; U0003; U0005

== ENCOUNTER 2022-09-14 19:24 | Observation (INO) | payer BC, SELFPAY ==
[2022-09-14] VITALS (10 sets, daily range): BP systolic 145–168; BP diastolic 83–109; PULSE 70–97; RESP 18–20; TEMP 36.6–37.2; O2SAT 95–99; BMI 53.6; BMI 52.2; BMI 52.9
--- NOTE | 2022-09-14 19:42 | EXP.UTC ---
Discharge Plan Disposition Patient Disposition: Still a Patient Condition: Fair Prescriptions Prescriptions: No Action aspirin [Adult Low Dose Aspirin] 81 mg tablet,delayed release (DR/EC) 81 mg PO DAILY Centrum Silver Men 300-600-300 mcg tablet 1 tab PO DAILY Xarelto 20 mg tablet 20 mg PO DAILY Qty: 30 3RF Rx Instructions: must administer with evening meal Start AUG 19, 2022. atorvastatin 40 mg tablet 40 mg PO DAILY Qty: 90 4RF diltiazem HCl 120 mg capsule,extended release 24hr 240 mg PO DAILY Xarelto 15 mg Tablet 15 mg PO BIDWMEAL 19 Days Qty: 38 0RF furosemide 40 mg Tablet 40 mg PO DAILY 30 Days Qty: 30 0RF carvedilol 6.25 mg Tablet 6.25 mg PO BID 30 Days Qty: 60 0RF sulfamethoxazole-trimethoprim 800-160 mg tablet 1 tab PO BID Qty: 14 0RF Referrals Follow up/Referrals: Alisha Suh APRN [Primary Care Provider] - See instructions Discharge ED Provider: Domitila Stockton [facility] General Stated complaint: Left leg infection Time Seen by Provider: 09/14/22 19:42 History of Present Illness Provider Complaint: Patient states that he has been having some swelling in his legs for a little while but today area on left lower leg busted open and was draining and a foul smell States that he has also had some swelling in his foot and hurt a little last night States that he didnt realize his leg had busted open until he took his pants off and seen they was wet and noticed the strong odor of the drainage Related Data Home Medications Medication Instructions Recorded Confirmed aspirin 81 mg tablet,delayed 81 mg PO DAILY A.fib 08/25/18 08/09/22 release (Adult Low Dose Aspirin) [id number]-bjx-[id number] acid 300 1 tab PO DAILY Supplement 08/25/18 08/09/22 mcg-lycopene 600 mcg-lutein 300 mcg tablet (Centrum Silver Men) diltiazem HCl 120 mg 240 mg PO DAILY afib 07/26/22 08/09/22 capsule,extended release 24 hr Previous Rx's Medication Instructions Recorded carvedilol 6.25 mg tablet 6.25 mg PO BID 30 days #60 tabs 07/29/22 furosemide 40 mg tablet 40 mg PO DAILY 30 days #30 tabs 07/29/22 rivaroxaban 15 mg tablet (Xarelto) 15 mg PO BIDWMEAL 19 days #38 tabs 07/29/22 sulfamethoxazole 800 1 tab PO BID #14 tabs 07/29/22 mg-trimethoprim 160 mg tablet rivaroxaban 20 mg tablet (Xarelto) 20 mg PO DAILY #30 tabs 08/09/22 atorvastatin 40 mg tablet 40 mg PO DAILY Cholesterol #90 tabs 08/16/22 Allergies Allergy/AdvReac Type Severity Reaction Status Date / Time sulfamethoxazole AdvReac Verified 08/09/22 14:27 [From Bactrim] trimethoprim [From Bactrim] AdvReac Verified 08/09/22 14:27 PFSH [facility] Disclaimer: The information contained in this section may have been updated after the patient was seen, as this information can be updated by other users. Medical History (Updated 08/13/22 @ 11:07 by Phyllis Carranza RN) Atrial fibrillation CHF (congestive heart failure) Dyspnea Edema of both lower extremities History of left heart catheterization Hypertension Hypotension Lymphedema Peripheral vascular disease Surgical History History of hip replacement Previous back surgery Family History Other Adopted Social History Smoking Status: Never smoker second hand exposure: No alcohol intake: current current occupational status: employed and other Travel in the last 8 weeks: None ROS Obtained: Yes All systems reviewed & no additional complaints except as documented and Yes Systems reviewed as appropriate & no additional complaints except as documented Constitutional Constitutional: Reports system reviewed and no additional complaints, except as documented and Reports as per HPI Cardiovascular Cardiovascular: Reports system reviewed and no additional complaints, except as documen
--- NOTE | 2022-09-14 19:45 | PC.NURSE ---
PATIENT SENT TO ER PER Cory BALTAZAR APRN FOR FURTHER EVALUATION. REPORT GIVEN TO Enrique BARAHONA RN BY Cory BALTAZAR APRN
[2022-09-14 20:38] LABS: Basophils # 0.1 K/mm3 (0-0.2); Basophils % 1.1 % (0.1-2.0); Eosinophils # 0.2 K/mm3 (0.0-0.4); Eosinophils % 2.1 % (0.1-12.0); Hematocrit 48.3 % (42.0-52.0); Hemoglobin 15.6 g/dL (14.1-18.0); Lymphocytes # 1.8 K/mm3 (0.7-4.5); Lymphocytes % 23.5 % (10-50); Mean Corpuscular HGB Conc 32.2 g/dL (31.8-35.4); Mean Corpuscular Hemoglobin 30.7 pg (27.0-31.2); Mean Corpuscular Volume 95.3 fl (80-94); Mean Platelet Volume 9.5 fl (7.4-10.4); Monocytes # 0.4 K/mm3 (0.1-1.0); Monocytes % 4.6 % (1.7-9.3); Neutrophils # 5.3 K/mm3 (1.8-7.8); Neutrophils % 68.8 % (37.0-80.0); Platelet Count 272 K/mm3 (142-424); Red Blood Count 5.07 M/mm3 (4.60-6.20); Red Cell Distribution Width 15.5 % (11.5-17.5); White Blood Count 7.7 K/mm3 (4.8-10.8)
[2022-09-14 20:39] LABS: Chloride 100 mmol/L (98-107); Potassium 3.8 mmoL/L (3.5-5.1); Sodium 136 mmol/L (136-145)
[2022-09-14 20:41] LABS: Blood Urea Nitrogen 22 mg/dl (9-20); Creatinine Clearance Estimated 85 mL/min (50-200); Estimated Glomerular Filt Rate 76 ml/min (>60); GFR (African American) 92 ML/MIN (>60)
--- NOTE | 2022-09-14 20:41 | HMH.EDWNDL ---
Discharge Plan Disposition Patient Disposition: Admitted As Inpatient Condition: Fair Prescriptions Prescriptions: No Action aspirin [Adult Low Dose Aspirin] 81 mg tablet,delayed release (DR/EC) 81 mg PO DAILY Centrum Silver Men 300-600-300 mcg tablet 1 tab PO DAILY atorvastatin 40 mg tablet 40 mg PO DAILY Qty: 90 4RF furosemide 40 mg tablet 80 mg PO DAILY carvedilol 6.25 mg tablet 6.25 mg PO BID Xarelto 20 mg tablet 20 mg PO DAILY Rx Instructions: must administer with evening meal Start AUG 19, 2022. diltiazem HCl 120 mg capsule,extended release 24hr 240 mg PO DAILY Referrals Follow up/Referrals: Alisha Suh APRN [Primary Care Provider] - See instructions Clinical Impressions Clinical Impression: Gangrene of lower extremity Instructions Patient Instructions: DI for Laceration Repair Discharge ED Provider: Chiki Mendoza Wound/Laceration HPI General Chief Complaint: Wound/Laceration Stated Complaint: Left leg infection Time Seen by Provider: 09/14/22 19:42 Mode of Arrival: Wheelchair Source of Information: Patient Limitations: No Limitations Description of Symptoms (Recalled from ER Triage Doc. by RN): Patient presents to er via [facility]. C/O a wound on his left calf. Does have +3 pitting edema in bilateral extremeties, states he has had this for several weeks following discharge from [facility] in July. Has not followed up with PCP regarding his legs. Left leg wound pt states has been there for several weeks but states that today it busted open and is now weeping with slough. History of Present Illness HPI narrative: draining wd lt lower leg which has been progressive over the last few weeks - foul odor and draining Onset (ago): day(s) Extremity Location: Left: lower leg Place: home Related Data Home Medications Medication Instructions Recorded Confirmed aspirin 81 mg tablet,delayed 81 mg PO DAILY A.fib 08/25/18 09/14/22 release (Adult Low Dose Aspirin) fwtpwonp-cye-vuphu acid 300 1 tab PO DAILY Supplement 08/25/18 09/14/22 mcg-lycopene 600 mcg-lutein 300 mcg tablet (Centrum Silver Men) diltiazem HCl 120 mg 240 mg PO DAILY afib 07/26/22 09/14/22 capsule,extended release 24 hr carvedilol 6.25 mg tablet 6.25 mg PO BID High blood pressure 09/14/22 09/14/22 furosemide 40 mg tablet 80 mg PO DAILY Fluid 09/14/22 09/14/22 rivaroxaban 20 mg tablet (Xarelto) 20 mg PO DAILY afib blood thinner 09/14/22 09/14/22 Previous Rx's Medication Instructions Recorded atorvastatin 40 mg tablet 40 mg PO DAILY Cholesterol #90 tabs 08/16/22 Allergies Allergy/AdvReac Type Severity Reaction Status Date / Time sulfamethoxazole AdvReac Verified 08/09/22 14:27 [From Bactrim] trimethoprim [From Bactrim] AdvReac Verified 08/09/22 14:27 PFSH [facility] Disclaimer: The information contained in this section may have been updated after the patient was seen, as this information can be updated by other users. Medical History (Updated 09/14/22 @ 20:47 by Chiki Mendoza MD) Atrial fibrillation CHF (congestive heart failure) Dyspnea Edema of both lower extremities History of left heart catheterization Hypertension Hypotension Lymphedema Peripheral vascular disease Surgical History History of hip replacement Previous back surgery Family History Other Adopted Social History Smoking Status: Never smoker second hand exposure: No alcohol intake: current current occupational status: employed and other Travel in the last 8 weeks: None ROS Obtained: Yes All systems reviewed & no additional complaints except as documented Physical Exam General General appearance: alert and in no apparent distress Head Head exam: normocephalic Eye Eye exam: Present PERRL and EOMI
[2022-09-14 20:42] LABS: Alanine Aminotransferase 22 U/L (12-78); Albumin Level 4.3 g/dl (3.5-5.0); Alkaline Phosphatase 109 U/L (38-126); Anion Gap 9.8 mEq/L (5-15); Aspartate Amino Transferase 40 U/L (17-59); Bilirubin,Total 0.9 mg/dl (0.2-1.3); Calcium 9.5 mg/dl (8.4-10.2); Carbon Dioxide 30 mmol/L (22.0-30.0); Globulin 4.4 g/dL (1.3-3.2); Glucose 83 mg/dl (74-100); Total Protein,Serum 8.7 g/dl (6.3-8.2)
[2022-09-14 20:47] LABS: C-Reactive Protein 37.8 mg/L (0-4)
--- NOTE | 2022-09-14 20:48 | PC.NURSE ---
Spoke with João at [facility] for Vanc dosing. Recommended 3gm loading dose. He is also going to place order for dosing after.
[2022-09-14 20:53] LABS: Coronavirus 19, PCR Not Detected (NotDetected); Influenza A, PCR Not Detected (NotDetected); Influenza B, PCR Not Detected (NotDetected); NT Pro Brain Natriuretic Pep. 557 pg/mL (0-125)
--- NOTE | 2022-09-14 20:55 | CT_ITS ---
PROCEDURE INFORMATION: Exam: CT Left Lower Extremity Without Contrast; Lower Leg Exam date and time: 09/14/2022 9:12 PM Age: 62 years old Clinical indication: Condition or disease; Other: Infection TECHNIQUE: Imaging protocol: CT of the Left lower extremity without contrast was performed. Exam focused on the lower leg. Radiation optimization: All CT scans at this facility use at least one of these dose optimization techniques: automated exposure control; mA and/or kV adjustment per patient size (includes targeted exams where dose is matched to clinical indication); or iterative reconstruction. COMPARISON: CT LOWER LEG LT WO CON 07/29/2022 11:42 AM FINDINGS: Bones/joints: No acute fracture. No definitive osseous erosive lesions. Degenerative changes along the talus and midfoot, as evidenced by subcortical cystic formation. Soft tissues: Diffuse soft tissue edema. No intramuscular hematoma IMPRESSION: Lower extremity cellulitis. No definitive osseous erosive lesions.
[2022-09-14 21:07] LABS: Hemoglobin A1C 5.8 % (4.0-6.0)
[2022-09-14 21:42] LABS: Erythrocyte Sedimentation Rate 16 mm/hr (0-20)
--- NOTE | 2022-09-14 21:58 | EXP.HP ---
History of Present Illness *Admission Date: 09/14/22 *Reason for visit:: LLE wound *History of present illness: With past medical history of CHF, morbid obesity, chronic atrial fibrillation, recent PE diagnosis on Xarelto presents to the emergency department today with complaints of left lower extremity wound dehiscence. Patient is noted to have peripheral artery disease and PVD with chronic leg wounds. Today he had a large wound on the left side of his calf split open. He did have some foul-smelling drainage per the . Patient reports that he has been seeing podiatry for his lower extremities and has been worked up for PAD, PVD and reports there has been no intervention for these diagnoses recently. He denies any fever but he does endorse paresthesias of his lower extremity which is typical for him. Due to his chronic leg wounds with new changes consistent with gangrene versus cellulitis, he will be admitted to the hospital service for further evaluation management. [facility] Disclaimer: The information contained in this section may have been updated after the patient was seen, as this information can be updated by other users. Medical History Atrial fibrillation CHF (congestive heart failure) Dyspnea Edema of both lower extremities History of left heart catheterization Hypertension Hypotension Lymphedema Peripheral vascular disease Surgical History History of hip replacement Previous back surgery Family History Other Adopted Social History Smoking Status: Never smoker second hand exposure: No alcohol intake: current current occupational status: employed and other Travel in the last 8 weeks: None Review of Systems Constitutional Constitutional: Reports as per HPI, Denies chills and Denies fever(s) Eyes Eyes: Reports system reviewed and no additional complaints, except as documented ENT Ears, Nose, Mouth, and Throat: Reports system reviewed and no additional complaints, except as documented *Cardiovascular Cardiovascular: Reports leg edema and Reports leg ulcers *Respiratory Comments: Reports baseline shortness of breath that is unchanged *Gastrointestinal Gastrointestinal: Reports system reviewed and no additional complaints, except as documented *Genitourinary Genitourinary: Reports system reviewed and no additional complaints, except as documented *Musculoskeletal Musculoskeletal: Reports system reviewed and no additional complaints, except as documented Integumentary/Breasts Skin/Breast: Reports skin ulcer (Bilateral lower extremities ) *Neurologic Comments: BLE parasthesias, baseline per pt Psychiatric Psychiatric: Reports system reviewed and no additional complaints, except as documented Endocrine Endocrine: Reports system reviewed and no additional complaints, except as documented Hematologic/Lymphatic Hematologic/Lymphatic: Reports system reviewed and no additional complaints, except as documented Allergic/Immunologic Allergic/Immunologic: Reports system reviewed and no additional complaints, except as documented Meds Home Medications and Allergies Home Medications Medication Instructions Recorded Confirmed Type aspirin 81 mg tablet,delayed 81 mg PO DAILY A.fib 08/25/18 09/14/22 History release (Adult Low Dose Aspirin) okhwjvog-jbm-lmnen acid 300 1 tab PO DAILY Supplement 08/25/18 09/14/22 History mcg-lycopene 600 mcg-lutein 300 mcg tablet (Centrum Silver Men) diltiazem HCl 120 mg 240 mg PO DAILY afib 07/26/22 09/14/22 History capsule,extended release 24 hr atorvastatin 40 mg tablet 40 mg PO DAILY Cholesterol #90 tabs 08/16/22 09/14/22 Rx carvedilol 6.25 mg tablet 6.25 mg PO BID High blood pressure 09/14/22 09/14/22 History furosemide 40 mg tablet 80 mg P
--- NOTE | 2022-09-15 00:04 | PC.WOUNDNOTE ---
left leg, anterior left leg, lateral
[2022-09-15 04:00] VITALS: BP 123/95; PULSE 78; RESP 18; TEMP 37; O2SAT 92
[2022-09-15 06:45] LABS: Basophils # 0.1 K/mm3 (0-0.2); Basophils % 1.3 % (0.1-2.0); Eosinophils # 0.1 K/mm3 (0.0-0.4); Eosinophils % 2.2 % (0.1-12.0); Hematocrit 47.2 % (42.0-52.0); Hemoglobin 14.8 g/dL (14.1-18.0); Lymphocytes # 1.3 K/mm3 (0.7-4.5); Lymphocytes % 21.6 % (10-50); Mean Corpuscular HGB Conc 31.4 g/dL (31.8-35.4); Mean Corpuscular Hemoglobin 30.3 pg (27.0-31.2); Mean Corpuscular Volume 96.5 fl (80-94); Mean Platelet Volume 9.5 fl (7.4-10.4); Monocytes # 0.3 K/mm3 (0.1-1.0); Monocytes % 5.7 % (1.7-9.3); Neutrophils # 4.1 K/mm3 (1.8-7.8); Neutrophils % 69.3 % (37.0-80.0); Platelet Count 276 K/mm3 (142-424); Red Blood Count 4.89 M/mm3 (4.60-6.20); Red Cell Distribution Width 15.5 % (11.5-17.5); White Blood Count 5.9 K/mm3 (4.8-10.8)
[2022-09-15 06:48] LABS: Chloride 103 mmol/L (98-107)
[2022-09-15 06:49] LABS: Potassium 4.1 mmoL/L (3.5-5.1); Sodium 140 mmol/L (136-145)
[2022-09-15 06:51] LABS: Blood Urea Nitrogen 21 mg/dl (9-20); Creatinine Clearance Estimated 85 mL/min (50-200); Estimated Glomerular Filt Rate 98 ml/min (>60); GFR (African American) 119 ML/MIN (>60)
[2022-09-15 06:52] LABS: Anion Gap 12.1 mEq/L (5-15); Carbon Dioxide 29 mmol/L (22.0-30.0); Glucose 96 mg/dl (74-100)
--- NOTE | 2022-09-15 07:45 | HMH.PHAINT1 ---
Pharmacy Intervention Comments: MEDICATION RECONCILIATION COMPLETED ON PATIENT USING EXTERNAL FILL HISTORY FROM PHARMACY AND LIST FROM CARDIOLOGY OFFICE. -SHANE DUNAWAY, [place]
[2022-09-15 07:59] VITALS: BP 154/80; PULSE 75; RESP 17; TEMP 36.6; O2SAT 98
--- NOTE | 2022-09-15 08:04 | P.CONPHA_ITS ---
Pharmacy Consult Date: 09/15/22 Time: 08:04 Referring provider: MARTHA NICOLE APRN Reason for Consult:: PHARMACY CONSULTED TO MANAGE VANCOMYCIN THERAPY Allergies Allergy/AdvReac Type Severity Reaction Status Date / Time sulfamethoxazole AdvReac Verified 08/09/22 14:27 [From Bactrim] trimethoprim [From Bactrim] AdvReac Verified 08/09/22 14:27 Home Medications Medication Instructions Recorded Confirmed Type aspirin 81 mg tablet,delayed 81 mg PO DAILY HEART HEALTH 08/25/18 09/14/22 History release (Adult Low Dose Aspirin) pzzuuoxx-vne-wtzaz acid 300 1 tab PO DAILY Supplement 08/25/18 09/14/22 History mcg-lycopene 600 mcg-lutein 300 mcg tablet (Centrum Silver Men) diltiazem HCl 120 mg 240 mg PO DAILY afib 07/26/22 09/14/22 History capsule,extended release 24 hr atorvastatin 40 mg tablet 40 mg PO DAILY Cholesterol #90 tabs 08/16/22 09/14/22 Rx carvedilol 6.25 mg tablet 6.25 mg PO BID Hypertension 09/14/22 09/14/22 History furosemide 40 mg tablet 40 mg PO BID Fluid 09/14/22 09/15/22 History rivaroxaban 20 mg tablet (Xarelto) 20 mg PO DAILY afib blood thinner 09/14/22 09/14/22 History New Prescriptions to Start Prescriptions: Height: 1.83 m Weight: 177.099 kg Laboratory Results:: Laboratory Results - last 24 hr 09/14/22 20:08: WBC 7.7, RBC 5.07, Hgb 15.6, Hct 48.3, MCV 95.3 H, MCH 30.7, MCHC 32.2, RDW 15.5, Plt Count 272, MPV 9.5, Neut % (Auto) 68.8, Lymph % (Auto) 23.5, [place] % (Auto) 4.6, Eos % (Auto) 2.1, Baso % (Auto) 1.1, Neut # (Auto) 5.3, Lymph # (Auto) 1.8, [place] # (Auto) 0.4, Eos # (Auto) 0.2, Baso # (Auto) 0.1 09/14/22 20:08: Sodium 136, Potassium 3.8, Chloride 100, Carbon Dioxide 30, Anion Gap 9.8, BUN 22 H, Creatinine 1.00, Estimated Creat Clear 85, Estimated GFR 76, Est GFR ( Amer) 92, Glucose 83, Calcium 9.5, Total Bilirubin 0.9, AST 40, ALT 22, Alkaline Phosphatase 109, C-Reactive Protein 37.8 H, Total Protein 8.7 H, Albumin 4.3, Globulin 4.4 H, Albumin/Globulin Ratio 1.0 L 09/14/22 20:08: ESR 16 09/14/22 20:08: Hemoglobin A1c 5.8 09/14/22 20:08: NT-Pro-B Natriuret Pep 557 H 09/14/22 20:08: Lactate 1.0 09/14/22 20:08: SARS-CoV-2 (PCR) Not detected, Influenza A Untype (PCR) Not detected, Influenza Type B (PCR) Not detected 09/15/22 06:18: WBC 5.9, RBC 4.89, Hgb 14.8, Hct 47.2, MCV 96.5 H, MCH 30.3, MCHC 31.4 L, RDW 15.5, Plt Count 276, MPV 9.5, Neut % (Auto) 69.3, Lymph % (Auto) 21.6, [place] % (Auto) 5.7, Eos % (Auto) 2.2, Baso % (Auto) 1.3, Neut # (Auto) 4.1, Lymph # (Auto) 1.3, [place] # (Auto) 0.3, Eos # (Auto) 0.1, Baso # (Auto) 0.1 09/15/22 06:18: Sodium 140, Potassium 4.1, Chloride 103, Carbon Dioxide 29, Anion Gap 12.1, BUN 21 H, Creatinine 0.80, Estimated Creat Clear 85, Estimated GFR 98, Est GFR ( Amer) 119 D, Glucose 96, Calcium 9.0, Magnesium 2.0 Medical History: Medical History (Updated 09/14/22 @ 22:[address] [facility]) Atrial fibrillation CHF (congestive heart failure) Dyspnea Edema of both lower extremities History of left heart catheterization Hypertension Hypotension Lymphedema Peripheral vascular disease Assessment and Plan Assessment and plan all Dx Assessment and Plan for all problems:: VANCOMYCIN 3000MG LOADING DOSE GIVEN ON 09/14/22 @ 2100. CONTINUE WITH VANCOMYCIN 1750MG EVERY 8 HOURS STARTING THIS AM. WILL CHECK TROUGH AT 1530 THIS AFTERNOON. PHARMACY TO FOLLOW DAILY.
--- NOTE | 2022-09-15 10:46 | HMH.PTWOUND ---
Rehab Inpt Wound Evaluation Rehab IP Wound Evaluation Start: 09/15/22 09:01 Freq: ONCE Status: Active Protocol: Document 09/15/22 09:15 YULIYA (Rec: 09/15/22 10:46 PHOMARVIN [id number]) Rehab PT Wound Assessment Subjective Subjective 62 yowm adm to [facility] with cellulitis vs gangrene of LLE. PMH: Atrial fibrillation CHF (congestive heart failure) Dyspnea Edema of both lower extremities History of left heart catheterization Hypertension Hypotension Lymphedema Peripheral vascular disease Currently presents with 2 wounds to anterior and lateral L ankle with slough and foul odor upon dressing removal. Lipodermatosclerosis noted with significant hardening of the tissues in L gaitor area. Wound Left Lateral Ankle Wound Type Stasis Ulcer Is This a Chronic Wound Yes Wound Length (cm) 8.2 Wound Width (cm) 6.0 Wound Depth (cm) 0.1 Wound Bed Appearance Dusky Red,[place],Yellow Percentage Granulated (%) 20 Percentage of Slough (%) 80 Wound Margins Description Well Defined Surrounding Tissue Appearance Purple Edema Type Pitting Edema Degree 1+ Query Text:1+ Trace, Barely Detectable, Rebound 15-30 seconds 2+ Moderate, Slight Indentation, Rebound 10-20 seconds 3+ Deep, Deeper Indentation, Rebound > 30 seconds 4+ Very Deep, Rebound > 60 seconds Wound Drainage Description Serosanguineous,Purulent Drainage Amount Moderate Drainage Odor Foul Odor Wound Topical Solution/Irrigant Saline Irrigant Primary Dressing betadine soaked gauze Wound Secondary Dressing Type Gauze Pad,Gauze Roll/Wrap Wound Debridement Method Sharps,Gauze Wound Debridement Amount of Tissue Large Removed Dressing Change Patient Tolerance Tolerated Well Left Anterior Ankle Wound Type Stasis Ulcer Is This a Chronic Wound Yes Wound Length (cm) 2.6 Wound Width (cm) 2.3 Wound Depth (cm) 0.1 Wound Bed Appearance [place]
--- NOTE | 2022-09-15 10:58 | PC.NURSE ---
per Nahun SELF, order heparin 5000u subcut Q8
--- NOTE | 2022-09-15 13:46 | EXP.ORTH.CON ---
Documented by User: PITA Vanessa 09/15/22 15:54 History of Present Illness *Admission Date: 09/14/22 *Reason for visit:: Bilateral cellulitis, left lower extremity wound *History of present illness: Mr. Cantu is a 62 year old male patient admitted to the acute inpatient service yesterday 09/14/2022 after presenting to the [facility] emergency department with concerns for left lower extremity wound drainage/cellulitis. He reports that he has had bilateral lower extremity swelling for many years. He states that he first noted the wound present on his left lower extremity in July, but states that it has not had any bleeding or drainage until yesterday. He states that when he got home from work yesterday evening, his pant leg was saturated with foul smelling drainage. No recent surgeries or injuries that he can recall to either leg. No history of any fevers, chills, or rigors. He does report bilateral lower extremity parathesias at baseline secondary to peripheral neuropathy. He states that he was previously under the care of Dr. Collins for bilateral foot/ankle arthritis, but was not being seen for this issue. He has been evaluated by the [facility] Cardiology department for his peripheral artery disease/PVD but states that his tests always come back borderline. No history of any vascular procedures or stenting. He was recently diagnosed with a pulmonary embolism in July 2022 and was started on Xarelto. He lives in his own home with his and ambulates with the use of a cane. He underwent a left hip arthroplasty performed by Dr. Vogel approximately 3 years ago and has done well since that time. His past medical history is significant for CHF, chronic atrial fibrillation, lymphedema, hypertension, hyperlipidemia, and right bundle branch block. He is employed at [employer] in [employer]. He denies any other symptoms or concerns at this time. [facility] Disclaimer: The information contained in this section may have been updated after the patient was seen, as this information can be updated by other users. Medical History Atrial fibrillation CHF (congestive heart failure) Dyspnea Edema of both lower extremities History of left heart catheterization Hypertension Hypotension Lymphedema Peripheral vascular disease Surgical History History of hip replacement Previous back surgery Family History Other Adopted Social History (Updated 09/14/22 @ 23:39 by Kristie Mack RN) Smoking Status: Never smoker second hand exposure: No alcohol intake: current current occupational status: employed and other Travel in the last 8 weeks: None Meds Home Medications and Allergies Home Medications Medication Instructions Recorded Confirmed Type aspirin 81 mg tablet,delayed 81 mg PO DAILY HEART HEALTH 08/25/18 09/14/22 History release (Adult Low Dose Aspirin) trquqxmo-aab-tiaig acid 300 1 tab PO DAILY Supplement 08/25/18 09/14/22 History mcg-lycopene 600 mcg-lutein 300 mcg tablet (Centrum Silver Men) diltiazem HCl 120 mg 240 mg PO DAILY afib 07/26/22 09/14/22 History capsule,extended release 24 hr atorvastatin 40 mg tablet 40 mg PO DAILY Cholesterol #90 tabs 08/16/22 09/14/22 Rx carvedilol 6.25 mg tablet 6.25 mg PO BID Hypertension 09/14/22 09/14/22 History furosemide 40 mg tablet 40 mg PO BID Fluid 09/14/22 09/15/22 History rivaroxaban 20 mg tablet (Xarelto) 20 mg PO DAILY afib blood thinner 09/14/22 09/14/22 History New Prescriptions to Start Prescriptions: Allergies Allergy/AdvReac Type Severity Reaction Status Date / Time sulfamethoxazole AdvReac Verified 08/09/22 14:27 [From Bactrim] trimethoprim [From Bactrim] AdvReac Verified 08/09/22 14:27 Ortho Exam (Inpt) Vital signs a
[2022-09-15 15:46] VITALS: BP 140/92; PULSE 71; RESP 17; TEMP 36.5; O2SAT 98
[2022-09-15 16:07] LABS: Vancomycin,Trough 19.8 ug/mL (5.0-10.0)
--- NOTE | 2022-09-15 18:30 | PC.NURSE ---
PT HAS BEEN PLEASANT, NO ACUTE CHANGES FROM PREVIOUS SHIFT. PT STILL NPO AT THIS TIME.
--- NOTE | 2022-09-15 19:25 | EXP.PN ---
Subjective *Date: 09/15/22 *Time: 19:25 Interval history: Date of service September 15, 2022 The patient is evaluated with multiple members of the disciplinary rounding team including pharmacology, case management and nursing staff. He remains afebrile with stable vital signs and saturating appropriately on room air. We have reviewed CT of his left lower extremity normal CBC, electrolytes and creatinine. Orthopedics has evaluated the patient. Exam Data for Last 24 hours Vital signs and Labs for Last 24 Hours: Temp Pulse Resp BP Pulse Ox 97.7 F 71 17 140/92 H 98 09/15/22 15:46 09/15/22 15:46 09/15/22 15:46 09/15/22 15:46 09/15/22 15:46 Laboratory Results - last 24 hr 09/14/22 20:08: WBC 7.7, RBC 5.07, Hgb 15.6, Hct 48.3, MCV 95.3 H, MCH 30.7, MCHC 32.2, RDW 15.5, Plt Count 272, MPV 9.5, Neut % (Auto) 68.8, Lymph % (Auto) 23.5, [place] % (Auto) 4.6, Eos % (Auto) 2.1, Baso % (Auto) 1.1, Neut # (Auto) 5.3, Lymph # (Auto) 1.8, [place] # (Auto) 0.4, Eos # (Auto) 0.2, Baso # (Auto) 0.1 09/14/22 20:08: Sodium 136, Potassium 3.8, Chloride 100, Carbon Dioxide 30, Anion Gap 9.8, BUN 22 H, Creatinine 1.00, Estimated Creat Clear 85, Estimated GFR 76, Est GFR ( Amer) 92, Glucose 83, Calcium 9.5, Total Bilirubin 0.9, AST 40, ALT 22, Alkaline Phosphatase 109, C-Reactive Protein 37.8 H, Total Protein 8.7 H, Albumin 4.3, Globulin 4.4 H, Albumin/Globulin Ratio 1.0 L 09/14/22 20:08: ESR 16 09/14/22 20:08: Hemoglobin A1c 5.8 09/14/22 20:08: NT-Pro-B Natriuret Pep 557 H 09/14/22 20:08: Lactate 1.0 09/14/22 20:08: SARS-CoV-2 (PCR) Not detected, Influenza A Untype (PCR) Not detected, Influenza Type B (PCR) Not detected 09/15/22 06:18: WBC 5.9, RBC 4.89, Hgb 14.8, Hct 47.2, MCV 96.5 H, MCH 30.3, MCHC 31.4 L, RDW 15.5, Plt Count 276, MPV 9.5, Neut % (Auto) 69.3, Lymph % (Auto) 21.6, [place] % (Auto) 5.7, Eos % (Auto) 2.2, Baso % (Auto) 1.3, Neut # (Auto) 4.1, Lymph # (Auto) 1.3, [place] # (Auto) 0.3, Eos # (Auto) 0.1, Baso # (Auto) 0.1 09/15/22 06:18: Sodium 140, Potassium 4.1, Chloride 103, Carbon Dioxide 29, Anion Gap 12.1, BUN 21 H, Creatinine 0.80, Estimated Creat Clear 85, Estimated GFR 98, Est GFR ( Amer) 119 D, Glucose 96, Calcium 9.0, Magnesium 2.0 09/15/22 15:38: Vancomycin Trough 19.8 H I & O for Last 24 hours: Intake & Output 09/12/22 09/13/22 09/14/22 09/15/22 23:59 23:59 23:59 23:59 Intake Total 0 / 0 Output Total / Balance -1 / -1 Weight 177.099 kg 177.099 kg Microbiology Reports for the Last 24 Hours: Microbiology 09/14/22 20:12 Leg,Left Gram Stain - Final 09/14/22 20:12 Leg,Left Wound Culture - Preliminary Constitutional Constitutional: no acute distress *Routine HEENT Exam Head: Present normocephalic Eye: Present EOMI and PERRL ENT: Present mucous membranes moist *Routine Neck Exam Neck: Present supple; Absent lymphadenopathy *Routine Respiratory Exam Respiratory: Present CTA bilaterally *Routine Cardiovascular Exam Cardiovascular: Present RRR *Routine Abdominal Exam Abdominal: Present soft and normoactive bowel sounds; Absent tenderness *Routine Extremities Exam Extremities: Absent cyanosis, clubbing or edema Comments: Left lower extremity with surgical dressing *Routine Skin Exam Skin: Present warm; Absent rash *Routine Neurological Exam Neurological: Present alert and oriented X3 Assessment and Plan *Assessment and plan (1) Cellulitis: Status: Acute Category: Medical Code(s): L03.90 - Cellulitis, unspecified (2) Chronic atrial fibrillation: Status: Acute Category: Medical Code(s): I48.2 - Chronic atrial fibrillation (3) Hypertensive disorder: Status: Acute Qualifiers: Hypertension type: essential hypertension Qualified Code(s): I10 - Essential (primary) hypertension Category: Medical Code(s): I10 - Essential (primary) hypertension (4) Hyperlipidemia: Status: Acute Qualifiers:
--- NOTE | 2022-09-15 19:28 | HMH.ITSTN ---
spoke to penny to let her know that this mri will not be done until 09/16/22
[2022-09-15 20:00] VITALS: BP 154/89; PULSE 80; RESP 18; TEMP 36.9; O2SAT 96
[2022-09-16 04:00] VITALS: BP 140/87; PULSE 72; RESP 20; TEMP 36.9; O2SAT 96
--- NOTE | 2022-09-16 06:00 | MR_ITS ---
FINAL REPORT CLINICAL HISTORY: Left lower extremity infection. EXAM WITH AND WITHOUT. 30ML PROHANCE GIVEN. FINDINGS: Multiplanar MR imaging of the left lower leg was performed with and without contrast. There are areas of serpiginous abnormal signal involving the medial femoral condyle, medial tibial plateau, in proximal tibial metadiaphysis, and talus. There is some peripheral enhancement of these areas having an appearance consistent with multifocal osteonecrosis. Subcutaneous edema is greatest at the knee. There is a knee joint effusion. There is mild soft tissue enhancement in the medial lower leg surrounding a superficial vein consistent with inflammation/cellulitis. IMPRESSION: Multifocal osteonecrosis as above. Mild enhancement surrounding a superficial vein in the medial lower leg consistent with inflammation/cellulitis. Reviewed, Interpreted and Dictated by Johnathon Patrcik III, MD Transcribed by Aryan Quinones Authenticated and [facility]
--- NOTE | 2022-09-16 06:23 | PC.NURSE ---
PATIENT HAS RESTED IN RECLINER WITH FEET ELEVATED. EDEMA BLE PRESENT WITH OPEN ULCERATIONS TO LEFT LOWER LEG, NO DRAINAGE PRESEN, OTILIO. RECIEVING IVAB VANCOMYCIN PRESCRIBED. HR IRREGULAR. PATIENT REPORTS H/O AFIB. LUNGS CTA. HAS NOT REQUIRED PAIN MEDS THIS SHIFT.
[2022-09-16 08:00] VITALS: BP 122/83; PULSE 88; RESP 18; TEMP 36.4; O2SAT 98
[2022-09-16 08:18] LABS: Vitamin B12 557 pg/mL (239-931)
--- NOTE | 2022-09-16 11:08 | EXP.ORTH.PN ---
Subjective *Date: 09/16/22 *Time: 11:14 Interval history: Mr. Cantu is a 62 year old male patient admitted to the acute inpatient service on 09/14/2022 with concerns for left lower extremity wound drainage/cellulitis. This morning the patient is sitting comfortably in a chair at the bedside and his is present. He denies any pain in his lower extremities today. No history of any fevers, chills, or rigors. He reports paresthesias in his bilateral lower extremities at baseline secondary to peripheral neuropathy. He denies any other symptoms or concerns at this time. Ortho Exam (Inpt) Vital signs and Labs for Last 24 Hours: Temp Pulse Resp BP Pulse Ox 97.6 F 88 18 122/83 98 09/16/22 08:00 09/16/22 08:00 09/16/22 08:00 09/16/22 08:00 09/16/22 08:00 Laboratory Results - last 24 hr 09/15/22 15:38: Vancomycin Trough 19.8 H 09/16/22 06:26: Vitamin B12 557 Temp Pulse Resp BP Pulse Ox 97.8 F 75 17 154/80 H 98 09/15/22 07:59 09/15/22 07:59 09/15/22 07:59 09/15/22 07:59 09/15/22 07:59 Laboratory Results - last 24 hr 09/14/22 20:08: WBC 7.7, RBC 5.07, Hgb 15.6, Hct 48.3, MCV 95.3 H, MCH 30.7, MCHC 32.2, RDW 15.5, Plt Count 272, MPV 9.5, Neut % (Auto) 68.8, Lymph % (Auto) 23.5, [place] % (Auto) 4.6, Eos % (Auto) 2.1, Baso % (Auto) 1.1, Neut # (Auto) 5.3, Lymph # (Auto) 1.8, [place] # (Auto) 0.4, Eos # (Auto) 0.2, Baso # (Auto) 0.1 09/14/22 20:08: Sodium 136, Potassium 3.8, Chloride 100, Carbon Dioxide 30, Anion Gap 9.8, BUN 22 H, Creatinine 1.00, Estimated Creat Clear 85, Estimated GFR 76, Est GFR ( Amer) 92, Glucose 83, Calcium 9.5, Total Bilirubin 0.9, AST 40, ALT 22, Alkaline Phosphatase 109, C-Reactive Protein 37.8 H, Total Protein 8.7 H, Albumin 4.3, Globulin 4.4 H, Albumin/Globulin Ratio 1.0 L 09/14/22 20:08: ESR 16 09/14/22 20:08: Hemoglobin A1c 5.8 09/14/22 20:08: NT-Pro-B Natriuret Pep 557 H 09/14/22 20:08: Lactate 1.0 09/14/22 20:08: SARS-CoV-2 (PCR) Not detected, Influenza A Untype (PCR) Not detected, Influenza Type B (PCR) Not detected 09/15/22 06:18: WBC 5.9, RBC 4.89, Hgb 14.8, Hct 47.2, MCV 96.5 H, MCH 30.3, MCHC 31.4 L, RDW 15.5, Plt Count 276, MPV 9.5, Neut % (Auto) 69.3, Lymph % (Auto) 21.6, [place] % (Auto) 5.7, Eos % (Auto) 2.2, Baso % (Auto) 1.3, Neut # (Auto) 4.1, Lymph # (Auto) 1.3, [place] # (Auto) 0.3, Eos # (Auto) 0.1, Baso # (Auto) 0.1 09/15/22 06:18: Sodium 140, Potassium 4.1, Chloride 103, Carbon Dioxide 29, Anion Gap 12.1, BUN 21 H, Creatinine 0.80, Estimated Creat Clear 85, Estimated GFR 98, Est GFR ( Amer) 119 D, Glucose 96, Calcium 9.0, Magnesium 2.0 I & O for Labs for Last 24 Hours: Intake & Output 09/13/22 09/14/22 09/15/22 09/16/22 23:59 23:59 23:59 23:59 Intake Total 0 / 0 700 / 700 Output Total 0 / 0 Balance -1 / -1 700 / 700 Weight 390 lb 7 oz 390 lb 7 oz Intake & Output 09/12/22 09/13/22 09/14/22 09/15/22 23:59 23:59 23:59 23:59 Intake Total 0 / 0 Output Total Balance -1 / -1 Weight 390 lb 7 oz 390 lb 7 oz Microbiology Reports for the Last 24 Hours: Microbiology 09/14/22 20:12 Leg,Left Gram Stain - Final 09/14/22 20:12 Leg,Left Wound Culture - Preliminary Microbiology 09/14/22 20:12 Leg,Left Gram Stain - Final 09/14/22 20:12 Leg,Left Wound Culture - Preliminary Constitutional: Present no acute distress and cooperative Head: Present normocephalic and atraumatic Eyes: Present as per HPI ENT: Present normal exam Neck: Present normal inspection, full ROM and trachea midline; Absent lymphadenopathy Respiratory: Present normal respiratory effort, able to speak in complete sentences and symmetric chest movement; Absent accessory muscle use or respiratory distress Cardiac: Present Reg Rate and Rhythm and radial pulses present GI: Present soft; Absent tenderness Rectal (male): Present deferred (male): Present deferred Comment:: Upon examination of the bilateral lower extremities: There is dif
--- NOTE | 2022-09-16 15:20 | PC.NURSE ---
PT HAS DONE WELL TODAY. NO ACUTE CHANGES FROM PREVIOUS SHIFT. UNNA BOOTS APPLIED TO BILAT LE. CB WITHIN REACH, NO CONCERNS AT THIS TIME,
[2022-09-16 15:45] VITALS: BP 122/80; PULSE 89; RESP 17; TEMP 36.8; O2SAT 94
--- NOTE | 2022-09-16 17:08 | EXP.PN ---
Subjective *Date: 09/16/22 *Time: 17:08 Interval history: Date of service September 16, 2022 I am accompanied by staff and members of the multidisciplinary rounds team. Orthopedic PAs in the room reviewing his history. The patient reports no acute events overnight. He is tolerating his IV antibiotic with no adverse events. He is inquiring about discharge home. An MRI of his lower extremity is pending. Exam Data for Last 24 hours Vital signs and Labs for Last 24 Hours: Temp Pulse Resp BP Pulse Ox 98.2 F 89 17 122/80 94 L 09/16/22 15:45 09/16/22 15:45 09/16/22 15:45 09/16/22 15:45 09/16/22 15:45 Laboratory Results - last 24 hr 09/16/22 06:26: Vitamin B12 557 I & O for Last 24 hours: Intake & Output 09/13/22 09/14/22 09/15/22 09/16/22 23:59 23:59 23:59 23:59 Intake Total 0 / 0 1060 / 1060 Output Total 1 / 1 0 / 0 Balance -1 / -1 1060 / 1060 Weight 177.099 kg 177.099 kg Microbiology Reports for the Last 24 Hours: Microbiology 09/14/22 20:12 Leg,Left Gram Stain - Final 09/14/22 20:12 Leg,Left Wound Culture - Preliminary Gram Negative Rods Constitutional Constitutional: no acute distress *Routine HEENT Exam Head: Present normocephalic Eye: Present EOMI and PERRL ENT: Present mucous membranes moist *Routine Neck Exam Neck: Present supple; Absent lymphadenopathy *Routine Respiratory Exam Respiratory: Present CTA bilaterally *Routine Cardiovascular Exam Cardiovascular: Present RRR *Routine Abdominal Exam Abdominal: Present soft and normoactive bowel sounds; Absent tenderness *Routine Extremities Exam Extremities: Absent cyanosis, clubbing or edema Comments: Left lower extremity with surgical dressing *Routine Skin Exam Skin: Present warm; Absent rash *Routine Neurological Exam Neurological: Present alert and oriented X3 Assessment and Plan *Assessment and plan (1) Cellulitis: Status: Acute Category: Medical Code(s): L03.90 - Cellulitis, unspecified (2) Chronic atrial fibrillation: Status: Acute Category: Medical Code(s): I48.2 - Chronic atrial fibrillation (3) Hypertensive disorder: Status: Acute Qualifiers: Hypertension type: essential hypertension Qualified Code(s): I10 - Essential (primary) hypertension Category: Medical Code(s): I10 - Essential (primary) hypertension (4) Hyperlipidemia: Status: Acute Qualifiers: Hyperlipidemia type: unspecified Qualified Code(s): E78.5 - Hyperlipidemia, unspecified Category: Medical Code(s): E78.5 - Hyperlipidemia, unspecified (5) Chronic anticoagulation: Status: Acute Category: Medical Code(s): Z79.01 - continuous churn buttermaker (current) use of anticoagulants (6) CHF (congestive heart failure): Status: Acute Category: Medical Code(s): I50.9 - Heart failure, unspecified Plan Cellulitis of left lower extremity MRSA screen pending Continue IV vancomycin Follow-up wound and blood cultures Trending labs and inflammatory markers Orthopedic consult noted MRI of lower extremity pending PT consulted Wound care ongoing Chronic atrial fibrillation Controlled at this time Continue home beta-sandra and diltiazem Hypertensive disorder Continue home antihypertensives Chronic anticoagulation Resume factor Xa inhibitor therapy after MRI complete CHF BNP elevated at 500 but improved from previous hospitalization Oxygenating well on room air Reports shortness of breath is at his baseline The patient is hospitalized day 2 with above diagnoses. We appreciate orthopedic evaluation and recommendations. Case management is assisting with next site of care which is expected to be home. Outpatient wound care will be set up. Barriers to discharge currently include IV antibiotic therapy, imaging and awaiting MRSA screening and culture results. Expected date of discharge
[2022-09-16 20:00] VITALS: BP 145/80; PULSE 108; RESP 18; TEMP 36.4; O2SAT 95
--- NOTE | 2022-09-17 05:08 | PC.NURSE ---
Assumed nursing care at 0100. He has been sitting up in chair. He was asleep for a little bit but has been awake for several hours watching television. No acute changes.
[2022-09-17 07:11] LABS: Basophils # 0.1 K/mm3 (0-0.2); Basophils % 1.5 % (0.1-2.0); Eosinophils # 0.2 K/mm3 (0.0-0.4); Eosinophils % 3.2 % (0.1-12.0); Hematocrit 50.9 % (42.0-52.0); Hemoglobin 16.1 g/dL (14.1-18.0); Lymphocytes # 1.3 K/mm3 (0.7-4.5); Lymphocytes % 20.5 % (10-50); Mean Corpuscular HGB Conc 31.6 g/dL (31.8-35.4); Mean Corpuscular Hemoglobin 30.6 pg (27.0-31.2); Mean Corpuscular Volume 96.8 fl (80-94); Mean Platelet Volume 9.6 fl (7.4-10.4); Monocytes # 0.4 K/mm3 (0.1-1.0); Monocytes % 5.6 % (1.7-9.3); Neutrophils # 4.5 K/mm3 (1.8-7.8); Neutrophils % 69.1 % (37.0-80.0); Platelet Count 232 K/mm3 (142-424); Red Blood Count 5.26 M/mm3 (4.60-6.20); Red Cell Distribution Width 15.6 % (11.5-17.5); White Blood Count 6.5 K/mm3 (4.8-10.8)
[2022-09-17 07:16] LABS: Chloride 98 mmol/L (98-107); Potassium 5.1 mmoL/L (3.5-5.1); Sodium 137 mmol/L (136-145)
[2022-09-17 07:19] LABS: Anion Gap 17.1 mEq/L (5-15); Blood Urea Nitrogen 19 mg/dl (9-20); Calcium 9.3 mg/dl (8.4-10.2); Carbon Dioxide 27 mmol/L (22.0-30.0); Creatinine Clearance Estimated 85 mL/min (50-200); Estimated Glomerular Filt Rate 86 ml/min (>60); GFR (African American) 104 ML/MIN (>60); Glucose 89 mg/dl (74-100)
[2022-09-17 07:53] LABS: Procalcitonin 0.031 ng/mL (0.0-2.0)
[2022-09-17 08:00] VITALS: BP 134/75; PULSE 75; RESP 24; TEMP 36.8; O2SAT 96
--- NOTE | 2022-09-17 09:25 | EXP.ORTH.PN ---
Subjective *Date: 09/17/22 *Time: 09:44 Interval history: Mr. Cantu is a 62 year old male patient admitted to the acute inpatient service on 09/14/2022 with concerns for left lower extremity wound drainage/cellulitis. This morning the patient is sitting comfortably in a chair at the bedside. He denies any pain in his lower extremities today. No history of any fevers, chills, or rigors. He reports paresthesias in his bilateral lower extremities at baseline secondary to peripheral neuropathy. He denies any other symptoms or concerns at this time. Ortho Exam (Inpt) Vital signs and Labs for Last 24 Hours: Temp Pulse Resp BP Pulse Ox 97.6 F 108 H 18 145/80 H 95 09/16/22 20:00 09/16/22 20:00 09/16/22 20:00 09/16/22 20:00 09/16/22 20:00 Laboratory Results - last 24 hr 09/17/22 06:32: WBC 6.5, RBC 5.26, Hgb 16.1, Hct 50.9, MCV 96.8 H, MCH 30.6, MCHC 31.6 L, RDW 15.6, Plt Count 232, MPV 9.6, Neut % (Auto) 69.1, Lymph % (Auto) 20.5, [place] % (Auto) 5.6, Eos % (Auto) 3.2, Baso % (Auto) 1.5, Neut # (Auto) 4.5, Lymph # (Auto) 1.3, [place] # (Auto) 0.4, Eos # (Auto) 0.2, Baso # (Auto) 0.1 09/17/22 06:32: Sodium 137, Potassium 5.1 D, Chloride 98, Carbon Dioxide 27, Anion Gap 17.1 H, BUN 19, Creatinine 0.90, Estimated Creat Clear 85, Estimated GFR 86, Est GFR ( Amer) 104, Glucose 89, Calcium 9.3, Procalcitonin 0.031 Temp Pulse Resp BP Pulse Ox 97.8 F 75 17 154/80 H 98 09/15/22 07:59 09/15/22 07:59 09/15/22 07:59 09/15/22 07:59 09/15/22 07:59 Laboratory Results - last 24 hr 09/14/22 20:08: WBC 7.7, RBC 5.07, Hgb 15.6, Hct 48.3, MCV 95.3 H, MCH 30.7, MCHC 32.2, RDW 15.5, Plt Count 272, MPV 9.5, Neut % (Auto) 68.8, Lymph % (Auto) 23.5, [place] % (Auto) 4.6, Eos % (Auto) 2.1, Baso % (Auto) 1.1, Neut # (Auto) 5.3, Lymph # (Auto) 1.8, [place] # (Auto) 0.4, Eos # (Auto) 0.2, Baso # (Auto) 0.1 09/14/22 20:08: Sodium 136, Potassium 3.8, Chloride 100, Carbon Dioxide 30, Anion Gap 9.8, BUN 22 H, Creatinine 1.00, Estimated Creat Clear 85, Estimated GFR 76, Est GFR ( Amer) 92, Glucose 83, Calcium 9.5, Total Bilirubin 0.9, AST 40, ALT 22, Alkaline Phosphatase 109, C-Reactive Protein 37.8 H, Total Protein 8.7 H, Albumin 4.3, Globulin 4.4 H, Albumin/Globulin Ratio 1.0 L 09/14/22 20:08: ESR 16 09/14/22 20:08: Hemoglobin A1c 5.8 09/14/22 20:08: NT-Pro-B Natriuret Pep 557 H 09/14/22 20:08: Lactate 1.0 09/14/22 20:08: SARS-CoV-2 (PCR) Not detected, Influenza A Untype (PCR) Not detected, Influenza Type B (PCR) Not detected 09/15/22 06:18: WBC 5.9, RBC 4.89, Hgb 14.8, Hct 47.2, MCV 96.5 H, MCH 30.3, MCHC 31.4 L, RDW 15.5, Plt Count 276, MPV 9.5, Neut % (Auto) 69.3, Lymph % (Auto) 21.6, [place] % (Auto) 5.7, Eos % (Auto) 2.2, Baso % (Auto) 1.3, Neut # (Auto) 4.1, Lymph # (Auto) 1.3, [place] # (Auto) 0.3, Eos # (Auto) 0.1, Baso # (Auto) 0.1 09/15/22 06:18: Sodium 140, Potassium 4.1, Chloride 103, Carbon Dioxide 29, Anion Gap 12.1, BUN 21 H, Creatinine 0.80, Estimated Creat Clear 85, Estimated GFR 98, Est GFR ( Amer) 119 D, Glucose 96, Calcium 9.0, Magnesium 2.0 I & O for Labs for Last 24 Hours: Intake & Output 09/14/22 09/15/22 09/16/22 09/17/22 23:59 23:59 23:59 23:59 Intake Total 0 / 0 1300 / 1300 Output Total 1 0 / 1 Balance -1 / -1 1300 / 1299 -1 / -1 Weight 390 lb 7 oz 390 lb 7 oz Intake & Output 09/12/22 09/13/22 09/14/22 09/15/22 23:59 23:59 23:59 23:59 Intake Total 0 / 0 Output Total Balance -1 / -1 Weight 390 lb 7 oz 390 lb 7 oz Microbiology Reports for the Last 24 Hours: Microbiology 09/14/22 20:12 Leg,Left Gram Stain - Final 09/14/22 20:12 Leg,Left Wound Culture - Preliminary Klebsiella oxytoca 09/14/22 20:08 Blood Blood Culture - Preliminary NO GROWTH AFTER 48 HOURS 09/14/22 20:08 Blood Blood Culture - Preliminary NO GROWTH AFTER 48 HOURS Microbiology 09/14/22 20:12 Leg
--- NOTE | 2022-09-17 10:20 | EXP.PHA.CONS ---
Pharmacy Consult Date: 09/16/22 Time: 11:00 Referring provider: DR. DAIJA ARAIZA Reason for Consult:: VANCOMYCIN LEVEL Allergies Allergy/AdvReac Type Severity Reaction Status Date / Time sulfamethoxazole AdvReac Verified 08/09/22 14:27 [From Bactrim] trimethoprim [From Bactrim] AdvReac Verified 08/09/22 14:27 Home Medications Medication Instructions Recorded Confirmed Type aspirin 81 mg tablet,delayed 81 mg PO DAILY HEART HEALTH 08/25/18 09/14/22 History release (Adult Low Dose Aspirin) blmolcoo-wrc-ytjiy acid 300 1 tab PO DAILY Supplement 08/25/18 09/14/22 History mcg-lycopene 600 mcg-lutein 300 mcg tablet (Centrum Silver Men) diltiazem HCl 120 mg 240 mg PO DAILY afib 07/26/22 09/14/22 History capsule,extended release 24 hr atorvastatin 40 mg tablet 40 mg PO DAILY Cholesterol #90 tabs 08/16/22 09/14/22 Rx carvedilol 6.25 mg tablet 6.25 mg PO BID Hypertension 09/14/22 09/14/22 History furosemide 40 mg tablet 40 mg PO BID Fluid 09/14/22 09/15/22 History rivaroxaban 20 mg tablet (Xarelto) 20 mg PO DAILY afib blood thinner 09/14/22 09/14/22 History New Prescriptions to Start Prescriptions: Height: 1.83 m Weight: 177.099 kg Laboratory Results:: Laboratory Results - last 24 hr 09/17/22 06:32: WBC 6.5, RBC 5.26, Hgb 16.1, Hct 50.9, MCV 96.8 H, MCH 30.6, MCHC 31.6 L, RDW 15.6, Plt Count 232, MPV 9.6, Neut % (Auto) 69.1, Lymph % (Auto) 20.5, [place] % (Auto) 5.6, Eos % (Auto) 3.2, Baso % (Auto) 1.5, Neut # (Auto) 4.5, Lymph # (Auto) 1.3, [place] # (Auto) 0.4, Eos # (Auto) 0.2, Baso # (Auto) 0.1 09/17/22 06:32: Sodium 137, Potassium 5.1 D, Chloride 98, Carbon Dioxide 27, Anion Gap 17.1 H, BUN 19, Creatinine 0.90, Estimated Creat Clear 85, Estimated GFR 86, Est GFR ( Amer) 104, Glucose 89, Calcium 9.3, Procalcitonin 0.031 Medical History: Medical History (Updated 09/15/22 @ 14:13 by PITA Vanessa) Atrial fibrillation CHF (congestive heart failure) Dyspnea Edema of both lower extremities History of left heart catheterization Hypertension Hypotension Lymphedema Peripheral vascular disease Assessment and Plan Assessment and plan all Dx Assessment and Plan for all problems:: VANCOMYCIN TROUGH WAS 19.8 MCG/ML. CONTINUING CURRENT DOSE AT THIS TIME.
[2022-09-17 11:24] LABS: Vancomycin,Trough 22.7 ug/mL (5.0-10.0)
--- NOTE | 2022-09-17 11:54 | EXP.PHA.CONS ---
Pharmacy Consult Date: 09/17/22 Time: 11:54 Referring provider: DR. ARAIZA Reason for Consult:: VANCOMYCIN LEVEL AND DOSE CHANGE Allergies Allergy/AdvReac Type Severity Reaction Status Date / Time sulfamethoxazole AdvReac Verified 08/09/22 14:27 [From Bactrim] trimethoprim [From Bactrim] AdvReac Verified 08/09/22 14:27 Home Medications Medication Instructions Recorded Confirmed Type aspirin 81 mg tablet,delayed 81 mg PO DAILY HEART HEALTH 08/25/18 09/14/22 History release (Adult Low Dose Aspirin) sjcmigoa-hwq-nmbga acid 300 1 tab PO DAILY Supplement 08/25/18 09/14/22 History mcg-lycopene 600 mcg-lutein 300 mcg tablet (Centrum Silver Men) diltiazem HCl 120 mg 240 mg PO DAILY afib 07/26/22 09/14/22 History capsule,extended release 24 hr atorvastatin 40 mg tablet 40 mg PO DAILY Cholesterol #90 tabs 08/16/22 09/14/22 Rx carvedilol 6.25 mg tablet 6.25 mg PO BID Hypertension 09/14/22 09/14/22 History furosemide 40 mg tablet 40 mg PO BID Fluid 09/14/22 09/15/22 History rivaroxaban 20 mg tablet (Xarelto) 20 mg PO DAILY afib blood thinner 09/14/22 09/14/22 History New Prescriptions to Start Prescriptions: Height: 1.83 m Weight: 177.099 kg Laboratory Results:: Laboratory Results - last 24 hr 09/17/22 06:32: WBC 6.5, RBC 5.26, Hgb 16.1, Hct 50.9, MCV 96.8 H, MCH 30.6, MCHC 31.6 L, RDW 15.6, Plt Count 232, MPV 9.6, Neut % (Auto) 69.1, Lymph % (Auto) 20.5, [place] % (Auto) 5.6, Eos % (Auto) 3.2, Baso % (Auto) 1.5, Neut # (Auto) 4.5, Lymph # (Auto) 1.3, [place] # (Auto) 0.4, Eos # (Auto) 0.2, Baso # (Auto) 0.1 09/17/22 06:32: Sodium 137, Potassium 5.1 D, Chloride 98, Carbon Dioxide 27, Anion Gap 17.1 H, BUN 19, Creatinine 0.90, Estimated Creat Clear 85, Estimated GFR 86, Est GFR ( Amer) 104, Glucose 89, Calcium 9.3, Procalcitonin 0.031 09/17/22 10:32: Vancomycin Trough 22.7 H Medical History: Medical History (Updated 09/15/22 @ 14:13 by PITA Vanessa) Atrial fibrillation CHF (congestive heart failure) Dyspnea Edema of both lower extremities History of left heart catheterization Hypertension Hypotension Lymphedema Peripheral vascular disease Assessment and Plan Assessment and plan all Dx Assessment and Plan for all problems:: VANCOMYCIN TROUGH LEVEL WAS 22.7 MCG/ML THIS AM. RECOMMEND HOLDING VANCOMYCIN DOSE UNTIL THIS EVENING. RECOMMEND STARTING BACK WITH VANCOMYCIN 1750 MG Q12H AT 2100 TONIGHT.
--- NOTE | 2022-09-17 13:37 | EXP.DC.SUM ---
General Admission date:: 09/14/22 Discharge date: 09/17/22 HPI HPI HPI: Mr. Cantu is a 62 year old male patient admitted to the acute inpatient service yesterday 09/14/2022 after presenting to the [facility] emergency department with concerns for left lower extremity wound drainage/cellulitis. He reports that he has had bilateral lower extremity swelling for many years. He states that he first noted the wound present on his left lower extremity in July, but states that it has not had any bleeding or drainage until yesterday. He states that when he got home from work yesterday evening, his pant leg was saturated with foul smelling drainage. No recent surgeries or injuries that he can recall to either leg. No history of any fevers, chills, or rigors. He does report bilateral lower extremity parathesias at baseline secondary to peripheral neuropathy. He states that he was previously under the care of Dr. Collins for bilateral foot/ankle arthritis, but was not being seen for this issue. He has been evaluated by the [facility] Cardiology department for his peripheral artery disease/PVD but states that his tests always come back borderline. No history of any vascular procedures or stenting. He was recently diagnosed with a pulmonary embolism in July 2022 and was started on Xarelto. He lives in his own home with his and ambulates with the use of a cane. He underwent a left hip arthroplasty performed by Dr. Vogel approximately 3 years ago and has done well since that time. His past medical history is significant for CHF, chronic atrial fibrillation, lymphedema, hypertension, hyperlipidemia, and right bundle branch block. He is employed at [employer] in [place]. He denies any other symptoms or concerns at this time. Hospital Course Hospital Course Hospital Course: The patient is admitted to the medical floor with orthopedic and wound care consults. Wound cultures are required as well as blood cultures. Blood cultures identified no growth to date wound cultures identify Klebsiella oxytoca sensitive to multiple agents. Ortho recommends a nonoperative approach with MRI identifying no abscess. He is started on IV vancomycin and does well. His laboratory studies and inflammatory markers were trended and identified normality. He identified improvement and inquired about discharge home. Case management assisted with setting up outpatient wound care and the patient is encouraged to continue follow-up with his PCP and orthopedic surgeon as recommended. I spent 35 minutes in [id number] time with the patient, case management and nursing staff concerning the discharge process. We discussed the admitting diagnoses and hospital course. We discussed identified improvement and the patient's desire to be discharged. We reviewed inpatient studies and imagings. The patient voiced understanding on the importance of follow-up with his primary care doctor and specialist. The patient plans to be compliant with the medication regimen prescribed and follow-up appointments. He understands that he can return to the emergency department with any sudden changes or concerns. Exam Data for Last 24 hours Vital signs and Labs for Last 24 Hours: Temp Pulse Resp BP Pulse Ox 98.2 F 75 24 134/75 96 09/17/22 08:00 09/17/22 08:00 09/17/22 08:00 09/17/22 08:00 09/17/22 08:00 Laboratory Results - last 24 hr 09/17/22 06:32: WBC 6.5, RBC 5.26, Hgb 16.1, Hct 50.9, MCV 96.8 H, MCH 30.6, MCHC 31.6 L, RDW 15.6, Plt Count 232, MPV 9.6, Neut % (Auto) 69.1, Lymph % (Auto) 20.5, [place] % (Auto) 5.6, Eos % (Auto) 3.2, Baso % (Auto) 1.5, Neut # (Auto) 4.5, Lymph # (Auto) 1.3, [place] # (Auto) 0.4, Eos # (Auto) 0.2, Baso # (Auto) 0.1 09/17/22 06:32: Sodium 137, Potassium 5.1 D, Chloride 98, Carbon Dioxide 27, Anion Gap 17.1 H, BUN 19, Creatinine 0.90, Estimated Creat Clear 85, Estimated GFR 86, Est GFR ( Amer) 104, Glucose 89, Calc
--- NOTE | 2022-09-20 14:03 | CARE MANAGER ---
Spoke with patient for post-discharge phone interview, he states that he does not know when his therapy appointment is. Called PT and appointment is @ 3pm. Spoke with Florin and he states that he thinks the patient is ok at this time, did instruct patient to call Florin if he needs an intervention prior to .
== END 2022-09-17 14:44 | disposition home or self-care (01) ==
LOC: UTC 19:27 → ER 19:50 → 2ND 21:43
PROVIDERS: Nurse Practitioner Acute Care; Admitting Provider Family Medicine; Emergency Provider Emergency Medicine; PCP Nurse Practitioner Family; Visit Provider Family Medicine
DX: L03.116 Cellulitis of left lower limb (principal); E78.5 Hyperlipidemia, unspecified; E66.01 Morbid (severe) obesity due to excess calories; Z68.43 Body mass index [BMI] 50.0-59.9, adult; I11.0 Hypertensive heart disease with heart failure; I89.0 Lymphedema, not elsewhere classified; I87.8 Other specified disorders of veins; I50.9 Heart failure, unspecified; I48.20 Chronic atrial fibrillation, unspecified; Z20.822 Contact with and (suspected) exposure to COVID-19; Z79.01 Long term (current) use of anticoagulants; Z79.899 Other long term (current) drug therapy; I87.2 Venous insufficiency (chronic) (peripheral)
CPT/HCPCS: 36415; 73700; 73720; 80048; 80053; 80202; 82607; 83036; 83605; 83735; 83880; 84145; 85025; 85651; 86140; 87040; 87070; 87077; 87081; 87186; 87205; 99285; A9576; C9803; G0378; J3370; U0003; U0005

== ENCOUNTER → 2022-10-06 16:29 | Outpatient (CLI) | payer BC, SELFPAY ==
--- NOTE | 2022-10-06 16:32 | MR_ITS ---
PROCEDURE INFORMATION: Exam: MR Right Lower Extremity Joint Without Contrast; Hip Exam date and time: 10/06/2022 4:44 PM Age: 62 years old Clinical indication: Pain; Hip; Right; Additional info: Osteoarthritis of right hip joint TECHNIQUE: Imaging protocol: Magnetic resonance imaging of the Right lower extremity joint without contrast. Exam focused on the hip. COMPARISON: No relevant prior studies available. FINDINGS: Bones/joints: No acute fracture. LEFT hip arthroplasty. Severe degenerative changes of RIGHT hip joint, characterized by marked joint space narrowing, small marginal osteophytes, denudation of articular cartilage, subchondral cyst/edema within acetabulum and femoral head/neck. Degenerative changes of lower lumbar spine, suboptimally evaluated. No dislocation. Fluid: Moderate RIGHT hip joint effusion. Labrum: Degenerative type tear. TENDONS: Tendons of iliopsoas group: Intact. Tendons of medial compartment of thigh: Intact. Tendons of lateral rotators of hip: Intact. Tendons of gluteal group: Intact. Muscles: Unremarkable. Soft tissues: Unremarkable. Lymph nodes: Few borderline/mildly enlarged short axis iliac and inguinal lymph nodes. Bladder: Mild bladder wall thickening. Incomplete distention, limiting evaluation. IMPRESSION: 1. Severe osteoarthritis of RIGHT hip joint. 2. Mild bladder wall thickening, nonspecific. Clinical correlation is needed. 3. Mild lymphadenopathy, nonspecific. Follow-up as clinically warranted.
== END ==
PROVIDERS: PCP Nurse Practitioner Family; Visit Provider Physician Assistant
DX: M16.11 Unilateral primary osteoarthritis, right hip (principal)
CPT/HCPCS: 73721

== ENCOUNTER 2022-10-08 10:30 | Outpatient (RCR) | payer BC, SELFPAY | END 2022-10-08 10:35 | disposition home or self-care (01) | LOC: PT 10:30 | PROVIDERS: PCP Nurse Practitioner Family; Visit Provider Nurse Practitioner Family | DX: L03.116 Cellulitis of left lower limb (principal) | CPT/HCPCS: 97162; 97597 ==

== ENCOUNTER 2023-01-04 10:14 | Inpatient (IN) | payer BC, SELFPAY ==
[2023-01-04] VITALS (32 sets, daily range): BP systolic 113–213; BP diastolic 58–133; PULSE 103–139; RESP 18–32; TEMP 36.9–37.3; O2SAT 94–100; BMI 52.2
--- NOTE | 2023-01-04 10:16 | ECG_ITS ---
APPROVED REPORT Exam: Resting ECG HR:107 bpm ECG Measurements Heart Rate 107 AXES QRSd 147 QRS 148 QT 333 T 5 QTc 395 Conclusion ATRIAL FIBRILLATION WITH RAPID VENTRICULAR RESPONSE RIGHT AXIS DEVIATION [QRS AXIS > 100] RIGHT BUNDLE BRANCH BLOCK [120+ ms QRS DURATION, UPRIGHT V1, 40+ ms S IN I/aVL/V4/V5/V6] ABNORMAL ECG UNCONFIRMED REPORT Electronically signed by : Scott Lazo MD 01/05/2023 01:41:18
--- NOTE | 2023-01-04 10:21 | XR_ITS ---
FINAL REPORT CLINICAL HISTORY: shortness of breath COMPARISON: 07/25/2022 FINDINGS: A single PA view of the chest was obtained. The cardiac and mediastinal silhouettes are within normal limits. There are low lung volumes with bibasilar opacities, favor atelectasis. There is no effusion or pneumothorax. No acute osseous abnormality is identified. IMPRESSION: Favor left lower lobe atelectasis. Reviewed, Interpreted and Dictated by Suzy Green MD Transcribed by Sylvia Howell Authenticated and [facility]
--- NOTE | 2023-01-04 10:22 | PC.NURSE ---
covid swab sent to lab
--- NOTE | 2023-01-04 10:27 | HMH.EDGENADL ---
Discharge Plan Disposition Chief Complaint: Shortness of Breath/Dyspnea Prescriptions Prescriptions: No Action aspirin [Adult Low Dose Aspirin] 81 mg tablet,delayed release (DR/EC) 81 mg PO DAILY Navneet Marcum Men 300-600-300 mcg tablet 1 tab PO DAILY atorvastatin 40 mg tablet 40 mg PO DAILY Qty: 90 4RF furosemide 40 mg tablet 40 mg PO BID carvedilol 6.25 mg tablet 6.25 mg PO BID Xarelto 20 mg tablet 20 mg PO DAILY diltiazem HCl 120 mg capsule,extended release 24hr 240 mg PO DAILY Referrals Follow up/Referrals: Provider,Referral, [Referring] - See instructions Discharge ED Provider: Jersey Carranza General Adult HPI General Chief complaint: Shortness of Breath/Dyspnea Stated complaint: shortness of air Time Seen by Provider: 01/04/23 10:56 Mode of Arrival: Wheelchair Source of Information: Patient Limitations: Physical Limitations Description of Symptoms (Recalled from ER Triage Doc. by RN): pt presents to ED from home. pt reports waking up this am with cough, congestion, and increased SOA. pt states he did have a blood clot in his lung back in July. History of Present Illness HPI narrative: Patient states that he was at work this morning at 8:30 AM when he got a severe chill. He did not take his temperature. States he could not get warm. He felt short of breath. Slight cough, no sputum. No other URI symptoms, no rhinorrhea or sore throat. No vomiting or diarrhea. States that he had a pulmonary embolism in July, unprovoked, and is concerned because his symptoms now feel similar to when he was diagnosed with a blood clot. He has never had shortness of breath at any other time except in July when he had his pulmonary embolism. He is on Xarelto and states he is compliant, has not missed any dosages. Denies leg pain or swelling. Denies hemoptysis He does not have any other lung problems. He has never been a smoker. He has chronic atrial fibrillation. He states he sees Dejan at Dr. Nash's office, he had an appointment a couple of months ago but says that he canceled it because he felt good and was having no problems. Related Data Home Medications Medication Instructions Recorded Confirmed aspirin 81 mg tablet,delayed 81 mg PO DAILY [facility] 11/16/18 12/06/22 release (Adult Low Dose Aspirin) nbgnyqnx-ekn-krmez acid 300 1 tab PO DAILY Supplement 08/25/18 09/14/22 mcg-lycopene 600 mcg-lutein 300 mcg tablet (Centrum Silver Men) diltiazem HCl 120 mg 240 mg PO DAILY afib 07/26/22 09/14/22 capsule,extended release 24 hr carvedilol 6.25 mg tablet 6.25 mg PO BID Hypertension 09/14/22 09/14/22 furosemide 40 mg tablet 40 mg PO BID Fluid 09/14/22 09/15/22 rivaroxaban 20 mg tablet (Xarelto) 20 mg PO DAILY afib blood thinner 09/14/22 09/14/22 Previous Rx's Medication Instructions Recorded atorvastatin 40 mg tablet 40 mg PO DAILY Cholesterol #90 tabs 08/16/22 Allergies Allergy/AdvReac Type Severity Reaction Status Date / Time sulfamethoxazole AdvReac Verified 08/09/22 14:27 [From Bactrim] trimethoprim [From Bactrim] AdvReac Verified 08/09/22 14:27 [facility] Disclaimer: The information contained in this section may have been updated after the patient was seen, as this information can be updated by other users. Medical History Atrial fibrillation CHF (congestive heart failure) Dyspnea Edema of both lower extremities History of left heart catheterization Hypertension Hypotension Lymphedema Peripheral vascular disease Surgical History History of hip replacement Previous back surgery Family History Other Adopted Social History (Updated 09/14/22 @ 23:39 by Kristie Mack RN) Smoking Status: Never smoker second hand exposure: No alcohol intake:
[2023-01-04 10:31] LABS: Coronavirus 19, PCR Not Detected (NotDetected); Influenza A, PCR Not Detected (NotDetected); Influenza B, PCR Not Detected (NotDetected)
[2023-01-04 10:45] LABS: Basophils # 0.1 K/mm3 (0-0.2); Basophils % 0.9 % (0.1-2.0); Eosinophils # 0.3 K/mm3 (0.0-0.4); Eosinophils % 2.6 % (0.1-12.0); Hematocrit 50.5 % (42.0-52.0); Hemoglobin 16.5 g/dL (14.1-18.0); Lymphocytes # 0.8 K/mm3 (0.7-4.5); Lymphocytes % 7.8 % (10-50); Mean Corpuscular HGB Conc 32.7 g/dL (31.8-35.4); Mean Corpuscular Hemoglobin 30.2 pg (27.0-31.2); Mean Corpuscular Volume 92.1 fl (80-94); Mean Platelet Volume 9.3 fl (7.4-10.4); Monocytes # 0.4 K/mm3 (0.1-1.0); Monocytes % 3.6 % (1.7-9.3); Neutrophils % 85.2 % (37.0-80.0); Platelet Count 204 K/mm3 (142-424); Red Blood Count 5.48 M/mm3 (4.60-6.20); Red Cell Distribution Width 15.2 % (11.5-17.5); White Blood Count 10.6 K/mm3 (4.8-10.8)
[2023-01-04 10:47] LABS: MANUAL DIFFERENTIAL MANUAL DIFFERENTIAL (MANUAL DIFF)
[2023-01-04 10:54] LABS: Eosinophils % 2 % (0-3); Lymphocytes % 10 % (10-50); Monocytes % 4 % (2-9); Neutrophils % 84 % (42-76); Platelet Estimate Normal; RBC Morphology Normal; Total Cells Counted 100
[2023-01-04 10:55] LABS: Alanine Aminotransferase 24 U/L (12-78); Albumin Level 4.1 g/dl (3.5-5.0); Albumin/Globulin Ratio 1.1 (1.1-1.8); Alkaline Phosphatase 106 U/L (38-126); Anion Gap 9.2 mEq/L (5-15); Aspartate Amino Transferase 32 U/L (17-59); Bilirubin,Total 1.2 mg/dl (0.2-1.3); Blood Urea Nitrogen 15 mg/dl (9-20); Calcium 8.5 mg/dl (8.4-10.2); Carbon Dioxide 34 mmol/L (22.0-30.0); Chloride 97 mmol/L (98-107); Creatinine Clearance Estimated 85 mL/min (50-200); Estimated Glomerular Filt Rate 98 ml/min (>60); GFR (African American) 119 ML/MIN (>60); Globulin 3.9 g/dL (1.3-3.2); Glucose 71 mg/dl (74-100); Potassium 4.2 mmoL/L (3.5-5.1); Sodium 136 mmol/L (136-145)
--- NOTE | 2023-01-04 11:00 | PC.NURSE ---
rounded on patient and updated on POC.
--- NOTE | 2023-01-04 11:02 | CT_ITS ---
FINAL REPORT TECHNIQUE: Axial imaging of the chest is obtained after the administration of contrast. 3-D MIP reformatted images were also obtained and reviewed per PE protocol. CLINICAL HISTORY: soa, h/o PE Pt refused repeat, best images possible COMPARISON: 07/25/2022 FINDINGS: There is suboptimal opacification of the periphery pulmonary arteries due to contrast bolus. There is no central pulmonary embolism. Exam is nondiagnostic for aortic dissection. The heart is mildly enlarged but stable. There is no mediastinal, hilar, or axillary lymphadenopathy. The previously identified right lower lobe airspace disease has resolved. There is no pleural or pericardial effusion. Limited evaluation of the upper abdomen is without acute abnormality. There is no acute osseous abnormality. IMPRESSION: Limited exam. No central pulmonary embolism. Exam nondiagnostic for aortic dissection. Reviewed, Interpreted and Dictated by Suzy Green MD Transcribed by Sylvia Howell Authenticated and . [facility]
[2023-01-04 11:07] LABS: NT Pro Brain Natriuretic Pep. 1000 pg/mL (0-125); Troponin I < 0.01 ng/ml (0.00-0.034)
--- NOTE | 2023-01-04 11:51 | PC.NURSE ---
pt returned from CT at this time.
--- NOTE | 2023-01-04 12:18 | PC.NURSE ---
MD called to bedside d/t patients O2 sats dropping to 40's and patient becoming cyanotic. pt was able to answer questions during this time. pt switched to nonrebreather and sats increased to 80's.
--- NOTE | 2023-01-04 12:19 | PC.NURSE ---
Called radiology regarding scans not being read; they are going to look for preliminary reports at this time
--- NOTE | 2023-01-04 12:22 | PC.NURSE ---
RT at bedside to obtain ABG
--- NOTE | 2023-01-04 12:25 | PC.NURSE ---
pt was needing chiropractic assistant with urinal but then started to fell like he could not breath he started to change color i called of alexandra to come to bedside and we switched pt to non rebreather and he sats started to rise and he not is setting on side of bed and feel better. respiratory is at bs for blood gas
--- NOTE | 2023-01-04 12:27 | PC.NURSE ---
pt also had me update on his cellphone messages
[2023-01-04 12:31] LABS: ABG Base Excess 2.1 mmol/L (-2.4-2.3); ABG HCO3 26.7 mmhg (22.0-26.0); ABG Oxygen Saturation 100 % (90-100); ABG PCO2 43.2 mmhg (35.0-45.0); ABG PH 7.41 mmol/L (7.35-7.45); ABG PO2 177.7 mmhg (80-100); Allen's Test Acceptable; Lactate Arterial 3.5 mmol/L (0.4-2.0); Oxygen 100% %; Source Right Brachial
--- NOTE | 2023-01-04 13:10 | PC.NURSE ---
MD notified of pt heart rate 140's afib on the monitor. Verbal order given for Cardizem bolus and drip.
--- NOTE | 2023-01-04 13:22 | PC.NURSE ---
Troponin sent to lab
[2023-01-04 13:43] LABS: Troponin I 0.01 ng/ml (0.00-0.034)
--- NOTE | 2023-01-04 13:52 | PC.NURSE ---
donny esparza for er to speak with
--- NOTE | 2023-01-04 14:18 | PC.NURSE ---
Cardizem drip titrated to 10 ml/hr.
--- NOTE | 2023-01-04 14:26 | CA_ITS ---
APPROVED REPORT EXAM: Limited 2D Echocardiogram Coverage Specialist Rn: NICOLAS Cerda, RVS Ht: 6 ft 0 in Wt: 385lbs BSA: 2.81 BP: 166/133 mmHg Rhythm: Atrial Fibrillation Indications: Rapid Afib, Respiratory distress, Morbid obesity, SOB, Edema, CHF Echo Enhancing Agent Comments: Extremely limited window due to patient factors.Patient seated upright throughout exam in constant motion. 2D Dimensions IVSd 1.22 cm M: 0.6-1.2 PWd 1.25 cm M: 0.6 - 1.2 LVDd 6.08 cm M: 4.2 - 5.9 LVDs 5.46 cm M: 2.5 - 4.0 Aortic Root 3.87 cm M: 3.1 - 3.7 Left Atrium 4.78 cm M: 3.0 - 4.0 RVID Base (AP4) 4.40 cm (M/F) 2.5-4.1 LVOT 2.39 cm (M/F) 1.5-2.5 Conclusion 1. Technically very limited and difficult study because of the patient factors and poor acoustic windows. Valvular structures and endocardial surfaces are very poorly visualized. There is no Doppler performed. 2. Biatrial enlargement, probably preserved left ventricular systolic function, estimated ejection fraction approximately 55% in the obtained views. 3. Mildly enlarged right ventricle with normal contractility. 4. No significant pericardial effusion noted. Electronically signed by : Lam Sipvey MD 01/05/2023 05:27:24
--- NOTE | 2023-01-04 14:38 | PC.NURSE ---
pt had incontinent episode on himself. pt change out of clothes. pt noted to have redness of left upper thigh and groin area. MD called to bedside and order for doppler given. redness and swelling noted to BLE with left extremity going into left thigh. state redness was not there this am.
--- NOTE | 2023-01-04 14:40 | PC.NURSE ---
2 sets of blood cultures drawn on patient and sent to lab. one drawn from right arm and other set from left arm.
--- NOTE | 2023-01-04 14:40 | PC.NURSE ---
theodora sent up with lab.
--- NOTE | 2023-01-04 14:47 | PC.NURSE ---
lab and staff nurse at drawing blood
--- NOTE | 2023-01-04 14:57 | PC.NURSE ---
MD notified of patient reporting increased SOA, nail beds cyanotic, increased work of breathing. MD asked about obtaining ABG, no new orders received. MD at bedside at this time to evaluate patient.
--- NOTE | 2023-01-04 15:07 | PC.NURSE ---
pt is now relaxing and resting in bed medications to help calm down. seizure pads placed on bed and family @ bs
--- NOTE | 2023-01-04 15:10 | PC.NURSE ---
Sylvia Brown rounded on patient.
--- NOTE | 2023-01-04 15:10 | PC.NURSE ---
Sylvia Brown rounded on patient
--- NOTE | 2023-01-04 15:10 | PC.NURSE ---
RT to come down and place patient on Bipap. pulse ox moved to patients ear. aware.
--- NOTE | 2023-01-04 15:11 | PC.NURSE ---
Dr. Charity cuenca for ER MD
[2023-01-04 15:16] LABS: D-Dimer 1.09 ug/mL (0.0-0.5)
--- NOTE | 2023-01-04 15:16 | PC.NURSE ---
morgan hamilton speaking to dr esparza
[2023-01-04 15:25] LABS: C-Reactive Protein 118.3 mg/L (0-4)
--- NOTE | 2023-01-04 15:29 | PC.NURSE ---
Dr. Nash to bedside to see patient. verbal order given for Heparin bolus, drip and Lasix.
--- NOTE | 2023-01-04 15:36 | HMH.PHAHEP ---
[facility] Heparin Dosing Demographic Data Admission date:: 01/04/23 Date: 01/04/23 Time: 15:36 Allergies Allergy/AdvReac Type Severity Reaction Status Date / Time sulfamethoxazole AdvReac Verified 01/04/23 21:12 [From Bactrim] trimethoprim [From Bactrim] AdvReac Verified 01/04/23 21:12 Height: 1.83 m Weight: 174.633 kg Indication Medication therapy:: Heparin Current Indications:: HIGH DOSE PROTOCOL (PE) Current Active Problems (Updated 01/04/23 @ 19:39 by Truong Weller RN) Pulmonary embolism (Acute) Acute on chronic heart failure with preserved ejection fraction (HFpEF) (Acute) Sepsis (Acute) Atrial fibrillation with RVR (Acute) Venous stasis of both lower extremities (Acute) Cellulitis (Acute) Lymphedema (Acute) CHF (congestive heart failure) (Acute) Morbid obesity (Chronic) CVA?: No Bleeding problem?: No Kidney disease?: No VA?: No Desired PTT range:: 50-75 seconds Labs Anticoagulation Lab Results:: 01/04/23 10:35 Hgb 16.5 Hct 50.5 Plt Count 204 Monitoring Dose Monitor 1: Date: 01/04/23 Time: 15:29 PTT Result:: >200 SECONDS (BOLUS AND DRIP GIVEN PRIOR TO LAB DRAW) Infusion Rate:: START HEPARIN DRIP AT 1800 UNITS/HOUR = 36 ML/HOUR AND BOLUS 24883 UNITS HEPARIN IV ONCE PER DR TEODORA VERBAL ORDER. Dose Monitor 2: Date: 01/04/23 Time: 16:30 PTT Result:: >200 SECONDS Infusion Rate:: CONTINUE CURRENT HEPARIN DRIP RATE OF 1800 UNITS/HOUR = 36 ML/HOUR Dose Monitor 3: Date: 01/04/23 Time: 17:30 PTT Result:: 137.2 SECONDS Infusion Rate:: CONTINUE CURRENT HEPARIN DRIP RATE OF 1800 UNITS/HOUR = 36 ML/HOUR Dose Monitor 4: Date: 01/04/23 Time: 18:30 PTT Result:: 106.3 SECONDS Infusion Rate:: CONTINUE CURRENT HEPARIN DRIP RATE OF 1800 UNITS/HOUR = 36 ML/HOUR. Dose Monitor 5: Date: 01/04/23 Time: 19:30 PTT Result:: 90.2 SECONDS Infusion Rate:: DECREASE HEPARIN DRIP RATE TO 1600 UNITS/HOUR = 32 ML/HOUR Comment:: HEPARIN DRIP STOPPED 01/04/23 AT 21:50; PATIENT SWITCHED TO XARELTO. Core Measures Is INR > or = 2 at discharge?: No Most Recent Labs:: Laboratory Results - last 24 hr 01/04/23 10:21: SARS-CoV-2 (PCR) Not detected, Influenza A Untype (PCR) Not detected, Influenza Type B (PCR) Not detected 01/04/23 10:35: WBC 10.6, RBC 5.48, Hgb 16.5, Hct 50.5, MCV 92.1, MCH 30.2, MCHC 32.7, RDW 15.2, Plt Count 204, MPV 9.3, Neut % (Auto) 85.2 H, Lymph % (Auto) 7.8 L, Early % (Auto) 3.6, Eos % (Auto) 2.6, Baso % (Auto) 0.9, Neut # (Auto) 9.0 H, Lymph # (Auto) 0.8, Early # (Auto) 0.4, Eos # (Auto) 0.3, Baso # (Auto) 0.1, Total Counted 100, Neutrophils % (Manual) 84 H, Lymphocytes % (Manual) 10, Monocytes % (Manual) 4, Eosinophils % (Manual) 2, Platelet Estimate Normal, RBC Morphology Normal 01/04/23 10:35: Sodium 136, Potassium 4.2, Chloride 97 L, Carbon Dioxide 34 H, Anion Gap 9.2, BUN 15, Creatinine 0.80, Estimated Creat Clear 85, Estimated GFR 98, Est GFR ( Amer) 119, Glucose 71 L, Calcium 8.5, Total Bilirubin 1.2, AST 32, ALT 24, Alkaline Phosphatase 106, Troponin I < 0.01, Total Protein 8.0, Albumin 4.1, Globulin 3.9 H, Albumin/Globulin Ratio 1.1 01/04/23 10:35: NT-Pro-B Natriuret Pep 1000 H 01/04/23 12:13: Specimen Source Right brachial, O2 % 100%, ABG pH 7.41, ABG pCO2 43.2, ABG pO2 177.7 H, ABG HCO3 26.7 H, ABG Total CO2 28.0 H, ABG O2 Saturation 100, ABG Base Excess 2.1, Devin Test Acceptable, ABG Lactate 3.5 H 01/04/23 13:12: Troponin I 0.01 01/04/23 14:50: D-Dimer 1.09 H 01/04/23 14:50: C-Reactive Protein 118.3 H If INR was < than 2.0 why was therapy stopped?: PATIENT SWITCHED TO XARELTO Were Heparin and Warfarin started on the same day?: No If not, why?: PATIENT SWITCHED TO XARELTO
--- NOTE | 2023-01-04 15:43 | EXP.PHA.CONS ---
Pharmacy Consult Date: 01/04/23 Time: 15:43 Referring provider: DR. CHAMPAGNE Reason for Consult:: VANCOMYCIN DOSING Allergies Allergy/AdvReac Type Severity Reaction Status Date / Time sulfamethoxazole AdvReac Verified 08/09/22 14:27 [From Bactrim] trimethoprim [From Bactrim] AdvReac Verified 08/09/22 14:27 Home Medications Medication Instructions Recorded Confirmed Type aspirin 81 mg tablet,delayed 81 mg PO DAILY HEART HEALTH 08/25/18 09/14/22 History release (Adult Low Dose Aspirin) rcxlhsro-hbk-guxrh acid 300 1 tab PO DAILY Supplement 08/25/18 09/14/22 History mcg-lycopene 600 mcg-lutein 300 mcg tablet (Centrum Silver Men) diltiazem HCl 120 mg 240 mg PO DAILY afib 07/26/22 09/14/22 History capsule,extended release 24 hr atorvastatin 40 mg tablet 40 mg PO DAILY Cholesterol #90 tabs 08/16/22 09/14/22 Rx carvedilol 6.25 mg tablet 6.25 mg PO BID Hypertension 09/14/22 09/14/22 History furosemide 40 mg tablet 40 mg PO BID Fluid 09/14/22 09/15/22 History rivaroxaban 20 mg tablet (Xarelto) 20 mg PO DAILY afib blood thinner 09/14/22 09/14/22 History New Prescriptions to Start Prescriptions: Height: 1.83 m Weight: 174.633 kg Laboratory Results:: Laboratory Results - last 24 hr 01/04/23 10:21: SARS-CoV-2 (PCR) Not detected, Influenza A Untype (PCR) Not detected, Influenza Type B (PCR) Not detected 01/04/23 10:35: WBC 10.6, RBC 5.48, Hgb 16.5, Hct 50.5, MCV 92.1, MCH 30.2, MCHC 32.7, RDW 15.2, Plt Count 204, MPV 9.3, Neut % (Auto) 85.2 H, Lymph % (Auto) 7.8 L, Casey % (Auto) 3.6, Eos % (Auto) 2.6, Baso % (Auto) 0.9, Neut # (Auto) 9.0 H, Lymph # (Auto) 0.8, Casey # (Auto) 0.4, Eos # (Auto) 0.3, Baso # (Auto) 0.1, Total Counted 100, Neutrophils % (Manual) 84 H, Lymphocytes % (Manual) 10, Monocytes % (Manual) 4, Eosinophils % (Manual) 2, Platelet Estimate Normal, RBC Morphology Normal 01/04/23 10:35: Sodium 136, Potassium 4.2, Chloride 97 L, Carbon Dioxide 34 H, Anion Gap 9.2, BUN 15, Creatinine 0.80, Estimated Creat Clear 85, Estimated GFR 98, Est GFR ( Amer) 119, Glucose 71 L, Calcium 8.5, Total Bilirubin 1.2, AST 32, ALT 24, Alkaline Phosphatase 106, Troponin I < 0.01, Total Protein 8.0, Albumin 4.1, Globulin 3.9 H, Albumin/Globulin Ratio 1.1 01/04/23 10:35: NT-Pro-B Natriuret Pep 1000 H 01/04/23 12:13: Specimen Source Right brachial, O2 % 100%, ABG pH 7.41, ABG pCO2 43.2, ABG pO2 177.7 H, ABG HCO3 26.7 H, ABG Total CO2 28.0 H, ABG O2 Saturation 100, ABG Base Excess 2.1, Devin Test Acceptable, ABG Lactate 3.5 H 01/04/23 13:12: Troponin I 0.01 01/04/23 14:50: D-Dimer 1.09 H 01/04/23 14:50: C-Reactive Protein 118.3 H, Procalcitonin 0.680 Medical History: Medical History (Updated 09/21/22 @ 00:02 by Background Anjel) Atrial fibrillation CHF (congestive heart failure) History of left heart catheterization Hypertension Hypotension Lymphedema Peripheral vascular disease Assessment and Plan Assessment and plan all Dx Assessment and Plan for all problems:: Pharmacokinetic dosing service Objective: Patient: Floor: Age: 62 yo Serum creatinine: 0.8 mg/dL Height: 72.0 Inches Weight (kg): 175 Assessment: IBW (kg): 73.10 Dosing wt(kg): 175 Estimated Creatinine clearance (ml/min): 85.2 CRCL method: Cockcroft and Gault using ibw(default). Drug selected: Vancomycin Loading dose (mg): 0 Vd (liters): 140.0 (factor used: 0.8 L/kg) Rashid (hr-1): 0.075 Half life (hrs): 9.24 Recommended dose: 2750 mg Interval: 12 hrs Infusion time (hrs): 2.0 Predicted peak (mcg/mL): 30.7 Predicted trough (mcg/mL): 14.50 Total body weight is being used for vancomycin dosing. Recommendations: Give Vancomycin 2750 mg q 12 hrs with an expected Cpeak of 30.7 mcg/ml and an expected Ctrough of 14.50 mcg/ml ----Vanco only - ignore for aminoglycosides----- CLvanco= 10
[2023-01-04 15:55] LABS: Microscopic, Urine URINE MICROSCOPIC (MICROSCOPIC)
[2023-01-04 16:06] LABS: Bilirubin,Urine Negative (Negative); Blood, Urine 1+ (Negative); Color,Urine YELLOW (Yellow); Glucose,Urine (UA) Negative (Negative); Ketones,Urine Negative (Negative); Leukocyte Esterase,Urine Negative (Negative); Nitrate,Urine Negative (Negative); Protein,Urine TRACE (Negative); Specific Gravity, Urine <= 1.005 (1.005-1.030); Urobilinogen,Urine 0.2 EU/dl (0.2)
[2023-01-04 16:08] LABS: Appearance,Urine Clear (Clear)
--- NOTE | 2023-01-04 16:11 | PC.NURSE ---
pt resting in bed at this time on bipap.
[2023-01-04 16:22] LABS: RBC,Urine Occasional #/hpf (0-3)
[2023-01-04 16:30] LABS: PTT Heparin (inpatient only) > 200.0 Seconds (23.6-34.0)
[2023-01-04 16:31] LABS: Erythrocyte Sedimentation Rate 3 mm/hr (0-20)
[2023-01-04 17:14] LABS: Troponin I 0.06 ng/ml (0.00-0.034)
--- NOTE | 2023-01-04 17:19 | PC.NURSE ---
Dr. Frey at bedside. Increased Cardizem to 15 ml/hr. pt remains on the bipap at 14/6, fio2-60%, rate 22
[2023-01-04 17:21] LABS: PTT Heparin (inpatient only) > 200.0 Seconds (23.6-34.0)
--- NOTE | 2023-01-04 17:33 | EXP.HP ---
History of Present Illness *Admission Date: 01/04/23 *Reason for visit:: shaking, tachypnea *History of present illness: Mr. Cantu is a 62-year-old gentleman with history of A-fib, lymphedema, morbid city hypertension, and PE who presented to the ER today because of not feeling well this morning. States that he was having tachypnea and tachycardia. States that he felt like he was shaking or tremulous. Denies any oxana fever, nausea, vomiting, chest pain. On arrival to the ER was stable on room air. Placed on 2 L nasal cannula for comfort. Found to be in A-fib with RVR. Noted as well to have redness and swelling of his left lower extremity. Sent for CTA of his chest which was negative for large central PEs but noted to have motion artifact. Ultrasound of left lower extremity negative for DVT. Patient developed worsening respiratory failure requiring 100% oxygen. Cardiology was consulted for A-fib with RVR, patient started on diltiazem drip. Concern for possible acute on chronic right heart failure. Recommended initiation of diuresis. Patient received 120 mg IV Lasix in the ER. Medicine consulted for admission. On my evaluation, patient is alert and oriented. Currently on BiPAP because of his respiratory failure. Tachypneic with respiratory rate in the 30s. Heart rate still in the 120s on diltiazem drip. Is afebrile but noted to have significant redness of left lower extremity. Given tachycardia, tachypnea, infection with cellulitis in his leg concern for sepsis. Broaden antibiotic coverage. Will admit patient to ICU at this time and monitor overnight. Family at bedside states patient had been doing well until today. Reports this is how he presented with his PE last time. [facility] Disclaimer: The information contained in this section may have been updated after the patient was seen, as this information can be updated by other users. Medical History Atrial fibrillation CHF (congestive heart failure) History of left heart catheterization Hypertension Hypotension Lymphedema Peripheral vascular disease Surgical History History of hip replacement Previous back surgery Family History Adopted Social History Smoking Status: Never smoker second hand exposure: No alcohol intake: current current occupational status: employed and other Travel in the last 8 weeks: None Review of Systems Review of Systems Review of systems (narrative): 14 point review of systems performed, pertinent positives and negatives as per HPI Constitutional Constitutional: Denies headache(s) and Denies weakness ENT Ears, Nose, Mouth, and Throat: Denies headache(s) *Musculoskeletal Musculoskeletal: Denies numbness *Neurologic Neurologic: Denies headache(s), Denies numbness and Denies weakness Meds Home Medications and Allergies Home Medications Medication Instructions Recorded Confirmed Type aspirin 81 mg tablet,delayed 81 mg PO DAILY HEART HEALTH 08/25/18 09/14/22 History release (Adult Low Dose Aspirin) kptgydek-azv-yxhsv acid 300 1 tab PO DAILY Supplement 08/25/18 09/14/22 History mcg-lycopene 600 mcg-lutein 300 mcg tablet (Centrum Silver Men) diltiazem HCl 120 mg 240 mg PO DAILY afib 07/26/22 09/14/22 History capsule,extended release 24 hr atorvastatin 40 mg tablet 40 mg PO DAILY Cholesterol #90 tabs 08/16/22 09/14/22 Rx carvedilol 6.25 mg tablet 6.25 mg PO BID Hypertension 09/14/22 09/14/22 History furosemide 40 mg tablet 40 mg PO BID Fluid 09/14/22 09/15/22 History rivaroxaban 20 mg tablet (Xarelto) 20 mg PO DAILY afib blood thinner 09/14/22 09/14/22 History New Prescriptions to Start Prescriptions: Allergies Allergy/AdvReac Type Severity Reaction Status Date / Time sulfamethoxazole AdvReac Verifie
--- NOTE | 2023-01-04 17:34 | PC.NURSE ---
lab at bedside to draw ptt.
--- NOTE | 2023-01-04 17:44 | PC.NURSE ---
unable to start Cefepime at this time d/t all 3 IV sites having medication infusing through them.
--- NOTE | 2023-01-04 17:47 | PC.NURSE ---
Rounded on pt he's resting , @ bs
[2023-01-04 18:18] LABS: PTT Heparin (inpatient only) 137.2 Seconds (23.6-34.0)
--- NOTE | 2023-01-04 18:21 | PC.NURSE ---
spoke with João on night watch regarding pt's ptt and Heparin drip. João stated that patients last lab draw to result is 137 and he wants to wait until 1830 draw to adjust drip.
--- NOTE | 2023-01-04 18:47 | INFXCTL.NOTE ---
called house for bed assignment
--- NOTE | 2023-01-04 19:12 | PC.NURSE ---
lactic order entered at this time d/t sepsis diagnosis. lactic was sent up at 1440 but was not ran d/t order. lab states they will have to come and redraw due to being uncertain if it was spun.
[2023-01-04 19:15] LABS: PTT Heparin (inpatient only) 106.3 Seconds (23.6-34.0)
--- NOTE | 2023-01-04 19:21 | PC.NURSE ---
spoke with João from night watch who states to leave the Heparin drip at the same rate.
--- NOTE | 2023-01-04 19:32 | PC.NURSE ---
report given to WARNER Posada. pt turned over to warehouse supervisor 3rd shift nurses while patient waits for room.
[2023-01-04 19:44] LABS: Lactic Acid 3.5 mmol/L (0.7-2.1)
--- NOTE | 2023-01-04 19:52 | PC.NURSE ---
PT ARRIVED TO FLOOR AT THIS TIME
[2023-01-04 20:11] LABS: PTT Heparin (inpatient only) 90.2 Seconds (23.6-34.0)
[2023-01-04 21:02] LABS: Chloride 96 mmol/L (98-107); Potassium 3.4 mmoL/L (3.5-5.1); Sodium 135 mmol/L (136-145)
[2023-01-04 21:05] LABS: Anion Gap 13.4 mEq/L (5-15); Blood Urea Nitrogen 17 mg/dl (9-20); Calcium 8.4 mg/dl (8.4-10.2); Carbon Dioxide 29 mmol/L (22.0-30.0); Creatinine Clearance Estimated 65 mL/min (50-200); Estimated Glomerular Filt Rate 56 ml/min (>60); GFR (African American) 68 ML/MIN (>60); Glucose 76 mg/dl (74-100)
[2023-01-04 23:32] LABS: Reflex Lactic Add Lactic Reflex
[2023-01-05] VITALS (38 sets, daily range): BP systolic 70–155; BP diastolic 31–78; PULSE 80–130; RESP 24–34; TEMP 37.6–39.6; O2SAT 92–100; BMI 52.1
--- NOTE | 2023-01-05 00:06 | PC.NURSE ---
He is A%Ox4. He was on the bipap @ 60%FiO2 per report. Upon arriving to the floor he was switched for Vapotherm at 30LPM 50 FiO2. He is sitting up in the chair per his request. He reports SOA with lying flat. His legs are michale in color. His states that the redness on his left leg is new. ER marked the area. His evangelista catheter is patent with yellow urine with sediment. He states he ambulates with a cane. He states his last BM was on 12/31/22.
[2023-01-05 00:20] LABS: Lactic Acid Follow Up (RFLX 1) 3.3 mmol/L (0.7-2.1)
[2023-01-05 01:34] LABS: Reflex Lactic (2 hrs) Add Lactic Reflex
--- NOTE | 2023-01-05 02:17 | PC.NURSE ---
notified Baron of pt CADY, Baron came to floor to assess, new orders received
[2023-01-05 02:22] LABS: Lactic Acid Follow up (RFLX 2) 3.6 mmol/L (0.7-2.1)
--- NOTE | 2023-01-05 04:18 | XR_ITS ---
PROCEDURE INFORMATION: Exam: XR Chest Exam date and time: 01/05/2023 4:35 AM Age: 62 years old Clinical indication: Condition or disease; Lung condition and disease; Hypoxia; Fever; Additional info: Fevers, hypoxia TECHNIQUE: Imaging protocol: Radiologic exam of the chest. Views: 1 view. COMPARISON: CR XR CHEST PORTABLE 01/04/2023 11:00 AM FINDINGS: Lungs: Unremarkable. No consolidation. Pleural spaces: Unremarkable. No pleural effusion. No pneumothorax. Heart/Mediastinum: Stable moderate cardiomegaly. Bones/joints: Unremarkable. IMPRESSION: No acute findings.
--- NOTE | 2023-01-05 04:18 | PC.NURSE ---
Baron notified of temperature 103.2, Baron to put orders in
[2023-01-05 06:21] LABS: Basophils # 0.1 K/mm3 (0-0.2); Basophils % 0.7 % (0.1-2.0); Eosinophils # 0.1 K/mm3 (0.0-0.4); Eosinophils % 0.3 % (0.1-12.0); Hematocrit 57.7 % (42.0-52.0); Lymphocytes # 0.4 K/mm3 (0.7-4.5); Mean Corpuscular HGB Conc 31.2 g/dL (31.8-35.4); Mean Corpuscular Hemoglobin 30.1 pg (27.0-31.2); Mean Corpuscular Volume 96.5 fl (80-94); Mean Platelet Volume 10.3 fl (7.4-10.4); Monocytes # 0.1 K/mm3 (0.1-1.0); Monocytes % 0.9 % (1.7-9.3); Neutrophils # 12.9 K/mm3 (1.8-7.8); Platelet Count 184 K/mm3 (142-424); Red Blood Count 5.98 M/mm3 (4.60-6.20); Red Cell Distribution Width 15.2 % (11.5-17.5); White Blood Count 13.6 K/mm3 (4.8-10.8)
[2023-01-05 06:29] LABS: MANUAL DIFFERENTIAL MANUAL DIFFERENTIAL (MANUAL DIFF)
--- NOTE | 2023-01-05 06:41 | ECG_ITS ---
APPROVED REPORT Exam: Resting ECG HR:96 bpm ECG Measurements Heart Rate 96 AXES QRSd 152 QRS 144 QT 398 T 9 QTc 452 Conclusion ATRIAL FIBRILLATION RIGHT AXIS DEVIATION [QRS AXIS > 100] RIGHT BUNDLE BRANCH BLOCK [120+ ms QRS DURATION, UPRIGHT V1, 40+ ms S IN I/aVL/V4/V5/V6] ABNORMAL ECG UNCONFIRMED REPORT Electronically signed by : Scott Lazo MD 01/05/2023 23:40:00
--- NOTE | 2023-01-05 06:44 | P.EN_ITS ---
On floor rounding at 620 CLINICAL MARKETING MANAGER called Provider and RN Maya in room, stating patient was non-responsive. When arrived in room, patient was lying back in bed, would not respond to painfu l stimuli, would not verbalize. Appeared cyanotic, agonal breathing. 86 % on monitor with Vapotherm in place at 30L, 50%. Pulse checked and there was no pulse. Sarahy Vilchis called overhead and CPR started. Patient received 2 rounds of Epinephrine with CPR. Blood glucose 52 mg/dl. Amp of Dextrose given. Pulse check at 0633 patient appeared Sinus Tachy with RBBB. Patient had a pulse. ER Physician arrived. Discussed intubation, but patient became responsive, able to verbalize. ABG, labs ordered. 0700 Discussed with attending when came on for day, went to bedside with attending, patient confused, concern for airway protection, Anesthesia at bedside to intubate.
--- NOTE | 2023-01-05 07:31 | EXP.SEPSISRE ---
[facility] Tissue Perfusion Eval Sepsis Re-Evaluation Performed: Yes Date Performed: 01/05/23 Time Performed: 07:31
--- NOTE | 2023-01-05 07:32 | PC.NURSE ---
Patient intubated per anesthesia
--- NOTE | 2023-01-05 07:32 | PC.NURSE ---
Patient spouse notified of decline in status.
--- NOTE | 2023-01-05 07:40 | PC.NURSE ---
Christiano d50 [address] Frey
--- NOTE | 2023-01-05 07:43 | PC.NURSE ---
Padmini Cantu contacted about change in patient status
[2023-01-05 07:55] LABS: Phosphorous 3.3 mg/dl (2.5-4.5)
--- NOTE | 2023-01-05 08:02 | EXP.PN ---
Subjective *Date: 01/05/23 *Time: 16:37 Interval history: Patient became unresponsive after placing him back to bed per Nursing staff, patient without a pulse, code blue called. Received 2 rounds of epinephrine, blood glucose 52 mg/dl. Amp of D50 given. The patient was seen on am rounding, blood cultures x 2 positive for gram positive cocci in chains, group A strep. Seen following intubation, hypotensive, Febrile, with high anion gap metabolic acidosis. Concern for Sepsis, started on Levophed, on broad spectrum antibiotics of Cefepime and MRSA. Exam Data for Last 24 hours Vital signs and Labs for Last 24 Hours: Temp Pulse Resp BP Pulse Ox FiO2 103.2 F H 92 H 34 H 155/76 H 92 L 50 01/05/23 04:00 01/05/23 06:00 01/05/23 06:00 01/05/23 06:00 01/05/23 06:00 01/05/23 06:00 Laboratory Results - last 24 hr 01/04/23 10:21: SARS-CoV-2 (PCR) Not detected, Influenza A Untype (PCR) Not detected, Influenza Type B (PCR) Not detected 01/04/23 10:35: WBC 10.6, RBC 5.48, Hgb 16.5, Hct 50.5, MCV 92.1, MCH 30.2, MCHC 32.7, RDW 15.2, Plt Count 204, MPV 9.3, Neut % (Auto) 85.2 H, Lymph % (Auto) 7.8 L, Redwood % (Auto) 3.6, Eos % (Auto) 2.6, Baso % (Auto) 0.9, Neut # (Auto) 9.0 H, Lymph # (Auto) 0.8, Redwood # (Auto) 0.4, Eos # (Auto) 0.3, Baso # (Auto) 0.1, Total Counted 100, Neutrophils % (Manual) 84 H, Lymphocytes % (Manual) 10, Monocytes % (Manual) 4, Eosinophils % (Manual) 2, Platelet Estimate Normal, RBC Morphology Normal 01/04/23 10:35: Sodium 136, Potassium 4.2, Chloride 97 L, Carbon Dioxide 34 H, Anion Gap 9.2, BUN 15, Creatinine 0.80, Estimated Creat Clear 85, Estimated GFR 98, Est GFR ( Amer) 119, Glucose 71 L, Calcium 8.5, Total Bilirubin 1.2, AST 32, ALT 24, Alkaline Phosphatase 106, Troponin I < 0.01, Total Protein 8.0, Albumin 4.1, Globulin 3.9 H, Albumin/Globulin Ratio 1.1 01/04/23 10:35: NT-Pro-B Natriuret Pep 1000 H 01/04/23 12:13: Specimen Source Right brachial, O2 % 100%, ABG pH 7.41, ABG pCO2 43.2, ABG pO2 177.7 H, ABG HCO3 26.7 H, ABG Total CO2 28.0 H, ABG O2 Saturation 100, ABG Base Excess 2.1, Devin Test Acceptable, ABG Lactate 3.5 H 01/04/23 13:12: Troponin I 0.01 01/04/23 14:50: D-Dimer 1.09 H 01/04/23 14:50: C-Reactive Protein 118.3 H, Procalcitonin 0.680 01/04/23 15:20: ESR 3 01/04/23 15:50: APTT > 200.0 H* 01/04/23 15:50: Urine Color Yellow, Urine Appearance Clear, Urine pH 6.0, Ur Specific Sutton <= 1.005, Urine Protein Trace, Urine Glucose (UA) Negative, Urine Ketones Negative, Urine Blood 1+, Urine Nitrate Negative, Urine Bilirubin Negative, Urine Urobilinogen 0.2, Ur Leukocyte Esterase Negative, Urine RBC Occasional, Urine WBC None, Ur Squamous Epith Cells None, Urine Bacteria None 01/04/23 16:40: Troponin I 0.06 H 01/04/23 16:40: APTT > 200.0 H* 01/04/23 17:35: APTT 137.2 H* 01/04/23 18:35: APTT 106.3 H* 01/04/23 19:20: APTT 90.2 H* 01/04/23 19:20: Lactate 3.5 H 01/04/23 20:45: Sodium 135 L, Potassium 3.4 L, Chloride 96 L, Carbon Dioxide 29, Anion Gap 13.4, BUN 17, Creatinine 1.30 H D, Estimated Creat Clear 65, Estimated GFR 56 L, Est GFR ( Amer) 68 D, Glucose 76, Calcium 8.4 03/28/23 23:45: Lactate 3.3 H 01/05/23 01:48: Lactate 3.6 H 01/05/23 05:51: WBC 13.6 H D, RBC 5.98, Hgb 18.0, Hct 57.7 H, MCV 96.5 H, MCH 30.1, MCHC 31.2 L, RDW 15.2, Plt Count 184, MPV 10.3, Neut % (Auto) 95.0 H, Lymph % (Auto) 3.0 L, Redwood % (Auto) 0.9 L, Eos % (Auto) 0.3, Baso % (Auto) 0.7, Neut # (Auto) 12.9 H, Lymph # (Auto) 0.4 L, Redwood # (Auto) 0.1, Eos # (Auto) 0.1, Baso # (Auto) 0.1 I & O for Last 24 hours: Intake & Output 01/02/23 01/03/23 01/04/23 01/05/23 23:59 23:59 23:59 23:59 Intake Total 164 / 164 Output Total 1800 / 1800 400 / 400 Balance -1800 / -1636 -236 / -236 Weight 174.633 kg 174.633 kg Microbiology Reports for the Last 24 Hours: Microbiology 01/04/23 14:50 Blood Blood Culture - Preliminary 01/04/23 14:50 Blood Blood Culture - Preliminary *Routine HEENT Exam Head: Present normoce
[2023-01-05 08:06] LABS: Lymphocytes % 11 % (10-50); Monocytes % 4 % (2-9); Neutrophils % 85 % (42-76); Total Cells Counted 100
[2023-01-05 08:07] LABS: Platelet Estimate Normal; RBC Morphology Normal; Troponin I 0.16 ng/ml (0.00-0.034)
[2023-01-05 08:13] LABS: ABG Base Excess -7.7 mmol/L (-2.4-2.3); ABG HCO3 20.3 mmhg (22.0-26.0); ABG Oxygen Saturation 78 % (90-100); ABG PCO2 52.8 mmhg (35.0-45.0); ABG PO2 78.2 mmhg (80-100); ABG TCO2 21.9 mmhg (23-27)
[2023-01-05 08:14] LABS: Allen's Test ACCEPTABLE; Oxygen 100 %; PEEP CPAP 10; Source Right Brachial
[2023-01-05 08:17] LABS: ABG Base Excess -6.7 mmol/L (-2.4-2.3); ABG HCO3 22.9 mmhg (22.0-26.0); ABG PCO2 75.4 mmhg (35.0-45.0); ABG TCO2 25.3 mmhg (23-27)
[2023-01-05 08:18] LABS: ABG Oxygen Saturation 94 % (90-100); Allen's Test ACCEPTABLE; Oxygen 100 %; Source Right Radial
--- NOTE | 2023-01-05 08:18 | HMH.PHAINT1 ---
Pharmacy Intervention Comments: MEDICATION RECONCILIATION COMPLETED ON PATIENT USING EXTERNAL FILL HISTORY FROM PHARMACY. -SHANE DUNAWAY, CITLALYD
[2023-01-05 08:26] LABS: NT Pro Brain Natriuretic Pep. 19700 pg/mL (0-125)
--- NOTE | 2023-01-05 08:26 | HMH.PROCNOTE ---
[facility] Procedure Note Date: 01/05/23 Time: 07:30 Procedure Note:: Consulted for urgent/emergent intubation d/t respiratory distress/code blue. Please see nursing charting for vital signs. Etomidate 10 mg IV, Propofol 30 mg IV, Succinylcholine 160 mg IV, DVL with Collins 2 blade x1, Grade 2-3 view, Bougie inserted through vocal chords then 8.0 ETT inserted over bougie and secured at 22cm at the lip on the right side. + ETCO2, Bilateral breath sounds. 1 dose of Phenylephrine 100 mcg IV push was given for hypotension. Sedation then started.
--- NOTE | 2023-01-05 08:35 | XR_ITS ---
FINAL REPORT CLINICAL HISTORY: cellulitis FINDINGS: AP and lateral views of the left tibia and fibula were obtained. There is no prior exam for comparison. There is no acute fracture of the left tibia or fibula. There is degenerative disease at the ankle greater than the knee. There is diffuse soft tissue edema, nonspecific. IMPRESSION: Nonspecific, diffuse soft tissue edema with no acute osseous abnormality of the left tibia or fibula. Reviewed, Interpreted and Dictated by Suzy Green MD Transcribed by Radha Monk Authenticated and [facility]
--- NOTE | 2023-01-05 08:50 | PC.NURSE ---
propofol infusing at 10mcg/kg/min
[2023-01-05 08:54] LABS: Lactate Dehydrogenase 787 U/L (313-618)
[2023-01-05 08:59] LABS: ABG Base Excess -4.7 mmol/L (-2.4-2.3); ABG HCO3 22.7 mmhg (22.0-26.0); ABG Oxygen Saturation 98 % (90-100); ABG PH 7.24 mmol/L (7.35-7.45); ABG PO2 103.1 mmhg (80-100); ABG TCO2 24.4 mmhg (23-27)
--- NOTE | 2023-01-05 09:00 | PC.NURSE ---
Blood Glucose rechecked. Still 65. Dr. Frey notified.
--- NOTE | 2023-01-05 09:00 | PC.NURSE ---
OG tube placed. Confirmed by air, with second RN. WARNER Del Castillo.
--- NOTE | 2023-01-05 09:02 | PC.NURSE ---
spouse at bedside.
[2023-01-05 09:06] LABS: Oxygen 100 %; PEEP 10; Tidal Volume 440; Vent Rate 24
[2023-01-05 09:07] LABS: ABG PCO2 54.1 mmhg (35.0-45.0); Allen's Test ACCEPTABLE; Source Right Radial
--- NOTE | 2023-01-05 09:29 | PC.NURSE ---
ETT 24 at the teeth
--- NOTE | 2023-01-05 09:31 | EXP.PULM.CON ---
History of Present Illness History of present illness: 62-year-old male history of A-fib, hypertension, presented to the hospital with not feeling well including tachypnea and tachycardia eventually noted to have worsening respiratory failure had cardiopulmonary arrest status post ROSC eventually intubation mechanical ventilatory support and pulmonary was consulted for further evaluation. [facility] Disclaimer: The information contained in this section may have been updated after the patient was seen, as this information can be updated by other users. Medical History (Updated 01/06/23 @ 10:00 by Jeremie Esquivel MD) Atrial fibrillation CHF (congestive heart failure) History of left heart catheterization Hypertension Hypotension Lymphedema On mechanically assisted ventilation Peripheral vascular disease Septic shock Surgical History History of hip replacement Previous back surgery Family History Adopted Social History Smoking Status: Never smoker second hand exposure: No alcohol intake: current current occupational status: employed and other Travel in the last 8 weeks: None Review of Systems Review of Systems Review of systems:: unable to obtain Review of systems (narrative): Intubated and sedated Constitutional Constitutional: Denies headache(s) and Denies weakness ENT Ears, Nose, Mouth, and Throat: Denies headache(s) *Musculoskeletal Musculoskeletal: Denies numbness *Neurologic Neurologic: Denies headache(s), Denies numbness and Denies weakness Pulmonology Exam Inpatient Vital signs and Labs for Last 24 Hours: Temp Pulse Resp BP Pulse Ox FiO2 100.2 F H 93 H 24 70/40 L 98 100 01/05/23 09:26 01/05/23 09:26 01/05/23 09:26 01/05/23 09:26 01/05/23 09:26 01/05/23 09:06 Laboratory Results - last 24 hr 01/04/23 10:21: SARS-CoV-2 (PCR) Not detected, Influenza A Untype (PCR) Not detected, Influenza Type B (PCR) Not detected 01/04/23 10:35: WBC 10.6, RBC 5.48, Hgb 16.5, Hct 50.5, MCV 92.1, MCH 30.2, MCHC 32.7, RDW 15.2, Plt Count 204, MPV 9.3, Neut % (Auto) 85.2 H, Lymph % (Auto) 7.8 L, [place] % (Auto) 3.6, Eos % (Auto) 2.6, Baso % (Auto) 0.9, Neut # (Auto) 9.0 H, Lymph # (Auto) 0.8, [place] # (Auto) 0.4, Eos # (Auto) 0.3, Baso # (Auto) 0.1, Total Counted 100, Neutrophils % (Manual) 84 H, Lymphocytes % (Manual) 10, Monocytes % (Manual) 4, Eosinophils % (Manual) 2, Platelet Estimate Normal, RBC Morphology Normal 01/04/23 10:35: Sodium 136, Potassium 4.2, Chloride 97 L, Carbon Dioxide 34 H, Anion Gap 9.2, BUN 15, Creatinine 0.80, Estimated Creat Clear 85, Estimated GFR 98, Est GFR ( Amer) 119, Glucose 71 L, Calcium 8.5, Total Bilirubin 1.2, AST 32, ALT 24, Alkaline Phosphatase 106, Troponin I < 0.01, Total Protein 8.0, Albumin 4.1, Globulin 3.9 H, Albumin/Globulin Ratio 1.1 01/04/23 10:35: NT-Pro-B Natriuret Pep 1000 H 01/04/23 12:13: Specimen Source Right brachial, O2 % 100%, ABG pH 7.41, ABG pCO2 43.2, ABG pO2 177.7 H, ABG HCO3 26.7 H, ABG Total CO2 28.0 H, ABG O2 Saturation 100, ABG Base Excess 2.1, Devin Test Acceptable, ABG Lactate 3.5 H 01/04/23 13:12: Troponin I 0.01 01/04/23 14:50: D-Dimer 1.09 H 01/04/23 14:50: C-Reactive Protein 118.3 H, Procalcitonin 0.680 01/04/23 15:20: ESR 3 01/04/23 15:50: APTT > 200.0 H* 01/04/23 15:50: Urine Color Yellow, Urine Appearance Clear, Urine pH 6.0, Ur Specific [place] <= 1.005, Urine Protein Trace, Urine Glucose (UA) Negative, Urine Ketones Negative, Urine Blood 1+, Urine Nitrate Negative, Urine Bilirubin Negative, Urine Urobilinogen 0.2, Ur Leukocyte Esterase Negative, Urine RBC Occasional, Urine WBC None, Ur Squamous Epith Cells None, Urine Bacteria None 01/04/23 16:40: Troponin I 0.06 H 01/04/23 16:40: APTT > 200.0 H* 01/04/23 17:35: APTT 137.2 H* 01/04/23 18:35: APTT 106.3 H* 01/04/23 19:20: APTT 90.2 H*
--- NOTE | 2023-01-05 09:32 | XR_ITS ---
FINAL REPORT CLINICAL HISTORY: confirm OG tube placement, ett placement and central line placement FINDINGS: A portable view of the chest was obtained. Comparison is made to a prior exam dated 01/05/2023. There has been interval placement of an NG tube which courses below the diaphragm. An ET tube is 2.5 cm above the leandro. There is a left subclavian central line with the tip in the SVC. The heart is again noted to be enlarged. There are increased interstitial markings which are concerning for mild edema. There are likely small pleural effusions. There is no pneumothorax. IMPRESSION: 1. Interval placement of NG tube which courses below the diaphragm. ET tube is 2.5 cm above the leandro. Left subclavian central line has its tip in the SVC. 2. Increased interstitial markings are concerning for mild edema. Reviewed, Interpreted and Dictated by Leandro Green MD Transcribed by Radha Monk Authenticated and [facility]
--- NOTE | 2023-01-05 09:57 | EXP.SURG.CON ---
History of Present Illness *Admission Date: 01/04/23 *History of present illness: Patient is a 62-year-old from [place] with BMI greater than 52 with history of atrial fibrillation, lymphedema, morbid obesity, hypertension, history of pulmonary embolism, on chronic Xarelto for atrial fibrillation who presented to the emergency department yesterday on 01/04/2023 with tachypnea and tachycardia. He was noted to be in atrial fibrillation with rapid ventricular response. He developed worsening respiratory failure requiring 100% oxygenation. Patient was admitted for inpatient management. Earlier this morning patient became nonresponsive. CODE BLUE was initiated and CPR was actually started. Patient was intubated. Patient being treated for septic shock. Started on Levophed. Pulmonology involved. Surgical consultation obtained for central line placement. [facility] Disclaimer: The information contained in this section may have been updated after the patient was seen, as this information can be updated by other users. Medical History Atrial fibrillation CHF (congestive heart failure) History of left heart catheterization Hypertension Hypotension Lymphedema Peripheral vascular disease Surgical History History of hip replacement Previous back surgery Family History Adopted Social History Smoking Status: Never smoker second hand exposure: No alcohol intake: current current occupational status: employed and other Travel in the last 8 weeks: None Review of Systems Constitutional Constitutional: Denies headache(s) and Denies weakness ENT Ears, Nose, Mouth, and Throat: Denies headache(s) *Musculoskeletal Musculoskeletal: Denies numbness *Neurologic Neurologic: Denies headache(s), Denies numbness and Denies weakness Meds Home Medications and Allergies Home Medications Medication Instructions Recorded Confirmed Type aspirin 81 mg tablet,delayed 81 mg PO DAILY HEART HEALTH 08/25/18 01/04/23 History release (Adult Low Dose Aspirin) ldeyaclm-wmp-sdllw acid 300 1 tab PO DAILY Supplement 08/25/18 01/04/23 History mcg-lycopene 600 mcg-lutein 300 mcg tablet (Centrum Silver Men) diltiazem HCl 120 mg 240 mg PO DAILY heart rate 07/26/22 01/04/23 History capsule,extended release 24 hr atorvastatin 40 mg tablet 40 mg PO DAILY Cholesterol #90 tabs 08/16/22 01/04/23 Rx carvedilol 6.25 mg tablet 6.25 mg PO BID Hypertension 09/14/22 01/04/23 History furosemide 40 mg tablet 40 mg PO BID Fluid 09/14/22 01/04/23 History rivaroxaban 20 mg tablet (Xarelto) 20 mg PO DAILY afib blood thinner 09/14/22 01/04/23 History New Prescriptions to Start Prescriptions: Allergies Allergy/AdvReac Type Severity Reaction Status Date / Time sulfamethoxazole AdvReac Verified 01/04/23 21:12 [From Bactrim] trimethoprim [From Bactrim] AdvReac Verified 01/04/23 21:12 Exam (Inpt) Vital signs and Labs for Last 24 Hours: Temp Pulse Resp BP Pulse Ox FiO2 100.2 F H 93 H 24 70/42 L 98 100 01/05/23 09:26 01/05/23 09:26 01/05/23 09:26 01/05/23 09:36 01/05/23 09:26 01/05/23 09:06 Laboratory Results - last 24 hr 01/04/23 10:21: SARS-CoV-2 (PCR) Not detected, Influenza A Untype (PCR) Not detected, Influenza Type B (PCR) Not detected 01/04/23 10:35: WBC 10.6, RBC 5.48, Hgb 16.5, Hct 50.5, MCV 92.1, MCH 30.2, MCHC 32.7, RDW 15.2, Plt Count 204, MPV 9.3, Neut % (Auto) 85.2 H, Lymph % (Auto) 7.8 L, [place] % (Auto) 3.6, Eos % (Auto) 2.6, Baso % (Auto) 0.9, Neut # (Auto) 9.0 H, Lymph # (Auto) 0.8, [place] # (Auto) 0.4, Eos # (Auto) 0.3, Baso # (Auto) 0.1, Total Counted 100, Neutrophils % (Manual) 84 H, Lymphocytes % (Manual) 10, Monocytes % (Manual) 4, Eosinophils % (Manual) 2, Platelet Estimate Normal, RBC Morphology Normal
--- NOTE | 2023-01-05 10:21 | EXP.CARD.CON ---
History of Present Illness History of Present Illness Consult date: 01/05/23 Requesting physician: Mason Frey Chief complaint: A-fib RVR, left leg cellulitis, concern for sepsis History of present illness: Patient is intubated, history obtained from and medical record: 62-year-old gentleman with history of chronic A-fib on Xarelto, chronic bilateral lower lymphedema, morbid obesity, hypertension and PE presented to emergency department yesterday with complaints of chills, shortness of breath and slight cough. reports patient was initially concerned because he was diagnosed with an unprovoked PE in July 2022 and had similar symptoms. Upon presentation to emergency department patient was found to be in A-fib RVR with an initial rate of 140. Patient was started on Cardizem drip. Labs were as follow: WBC 10.6, D-dimer 1.09, sodium 136, potassium 4.2, creatinine 0.8, troponin 0.01and proBNP 1000. Initial blood gas showed a pH of 7.41, PCO2 of 43, PO2 of 177, and HCO3 of 26. An initial chest x-ray favored left lower lobe atelectasis. A ct of chest was performed and showed no central pulmonary embolism, however, exam was limited due to body habitus. Redness and swelling was noted to left lower extremity. An ultrasound of left lower extremity was negative for DVT. During stay patient developed worsening respiratory failure requiring 100% oxygen. Cardiology was consulted and initial concern was for possible acute on chronic right-sided heart failure. Dr. Nash recommended initiation of diuresis and patient received 120 mg IV Lasix in the ER. He was admitted for further observation and treatment. Throughout the evening patient requiring more oxygen. At 6:44 AM patient became unresponsive, cyanotic, with agonal breathing. Oxygen sats were 86% on Vapotherm. Patient became pulseless. CODE BLUE was called and CPR was initiated. ROSC was achieved after 2 rounds of epinephrine with CPR. Patient was intubated. Cultures x2 are noted to be positive for gram-positive cocci in chains,group A strep. After intubation patient remained hypotensive and became febrile with a high anion gap metabolic acidosis concerning for sepsis. Patient was started on Levophed and broad-spectrum antibiotics. This am patient remains intubated and sedated. He is hypotensive on pressors and remains afib with rates in the low 100s. Currently off of dilt drip. A limited echo was performed due to body habitus and shows an estimated EF of 55 in the obtained views. is at bedside. [facility] Disclaimer: The information contained in this section may have been updated after the patient was seen, as this information can be updated by other users. Medical History Atrial fibrillation CHF (congestive heart failure) History of left heart catheterization Hypertension Hypotension Lymphedema Peripheral vascular disease Surgical History History of hip replacement Previous back surgery Family History Adopted Social History Smoking Status: Never smoker second hand exposure: No alcohol intake: current current occupational status: employed and other Travel in the last 8 weeks: None Review of Systems Review of Systems Review of systems:: pertinent systems reviewed and negative unless documented below Constitutional Constitutional: Reports chills, Denies headache(s) and Denies weakness ENT Ears, Nose, Mouth, and Throat: Denies headache(s) *Cardiovascular Cardiovascular: Reports dyspnea *Respiratory Respiratory: Reports cough and Reports dyspnea *Musculoskeletal Musculoskeletal: Denies numbness *Neurologic Neurologic: Denies headache(s), Denies numbness and Denies weakness Exam Data for Last 24 hours Vital signs and Labs for Last 24 Hours: Temp Puls
[2023-01-05 10:31] LABS: Basophils # 0.1 K/mm3 (0-0.2); Basophils % 0.7 % (0.1-2.0); Eosinophils # 0.1 K/mm3 (0.0-0.4); Eosinophils % 0.5 % (0.1-12.0); Hemoglobin 17.1 g/dL (14.1-18.0); Lymphocytes # 0.7 K/mm3 (0.7-4.5); Lymphocytes % 4.2 % (10-50); Mean Corpuscular HGB Conc 29.9 g/dL (31.8-35.4); Mean Corpuscular Hemoglobin 29.5 pg (27.0-31.2); Mean Corpuscular Volume 98.6 fl (80-94); Mean Platelet Volume 9.2 fl (7.4-10.4); Monocytes # 0.4 K/mm3 (0.1-1.0); Monocytes % 2.4 % (1.7-9.3); Neutrophils # 14.9 K/mm3 (1.8-7.8); Neutrophils % 92.2 % (37.0-80.0); Platelet Count 158 K/mm3 (142-424); Red Blood Count 5.78 M/mm3 (4.60-6.20); Red Cell Distribution Width 15.1 % (11.5-17.5); White Blood Count 16.2 K/mm3 (4.8-10.8)
--- NOTE | 2023-01-05 10:32 | PC.NURSE ---
0618 pt noted to become bradycardic, HR 45, staff at bedside 0620 pt asystole, code blue called, compressions started 0623 Dr. Mendoza at bedside 0624 epinephrine 1 mg IVP per WARNER Heath 0627 epinephrine 1 mg IVP per WARNER Heath 06 rhythm check, PEA 0629 pulse returned 0630 a fibrillation on monitor 0631 FSBS 52 0632 1 amp D50 per WARNER Heath [address] with IVCD 0634 non rebreather placed on pt 0635 bipap placed on pt 0638 ABG drawn 0642 EKG obtained
[2023-01-05 10:44] LABS: Troponin I 0.16 ng/ml (0.00-0.034)
--- NOTE | 2023-01-05 10:44 | P.OP_ITS ---
Date of procedure: 01/05/23 Pre-op Diagnosis:: Sepsis, need for central venous access Post-op Diagnosis:: Same Procedure performed:: Placement of 7 Indonesian nontunneled triple-lumen catheter left subclavian vein Surgeon:: Johnathon Mera MD Anesthesia: local Estimated blood loss (mL): 10 Operative findings:: Seemingly normal anatomy Operative note:: Consent was obtained from the patient's family. He was maintained on the hospital bed. He was positioned in Trendelenburg position. Left neck and chest were prepped and draped in the standard surgical fashion. Local anesthetic was infiltrated inferior to the left clavicle. Given the patient's profound body habitus landmarks were somewhat difficult to identify. 18-gauge needle was inserted manipulating the needle posterior to the clavicle. The left subclavian vein was cannulated with good return of venous blood flow. Guidewire was inserted. Small incision was made at the insertion site. Subcutaneous tissues were dilated. 7 [place] triple-lumen catheter was inserted over the guidewire using Seldinger technique. It was secured to the skin at approximately the 18 cm [place] with silk suture. All ports aspirated and flushed without difficulty. Clean dry sterile dressing was applied. Condition: stable Disposition: no change Complications:: None immediately apparent
[2023-01-05 10:49] LABS: Alanine Aminotransferase 64 U/L (12-78); Albumin Level 3.3 g/dl (3.5-5.0); Alkaline Phosphatase 91 U/L (38-126); Anion Gap 20.8 mEq/L (5-15); Aspartate Amino Transferase 169 U/L (17-59); Bilirubin,Total 1.9 mg/dl (0.2-1.3); Blood Urea Nitrogen 27 mg/dl (9-20); Calcium 7.8 mg/dl (8.4-10.2); Carbon Dioxide 24 mmol/L (22.0-30.0); Chloride 94 mmol/L (98-107); Creatinine Clearance Estimated 29 mL/min (50-200); Estimated Glomerular Filt Rate 22 ml/min (>60); GFR (African American) 27 ML/MIN (>60); Globulin 3.3 g/dL (1.3-3.2); Potassium 3.8 mmoL/L (3.5-5.1); Sodium 135 mmol/L (136-145); Total Protein,Serum 6.6 g/dl (6.3-8.2)
[2023-01-05 11:06] LABS: Glucose 47 mg/dl (74-100)
[2023-01-05 11:21] LABS: POC Glucose,Bedside 71 (70-110)
[2023-01-05 11:21] LABS: POC Glucose,Bedside 65 (70-110)
[2023-01-05 13:43] LABS: Troponin I 0.16 ng/ml (0.00-0.034)
[2023-01-05 14:50] LABS: ABG Base Excess -4.9 mmol/L (-2.4-2.3); ABG HCO3 21.6 mmhg (22.0-26.0); ABG Oxygen Saturation 100 % (90-100); ABG PCO2 45.1 mmhg (35.0-45.0); ABG PO2 210.4 mmhg (80-100); Oxygen 100 %
[2023-01-05 14:51] LABS: Allen's Test Patient Unable; PEEP 10; Tidal Volume 440; Vent Rate 24
--- NOTE | 2023-01-05 14:52 | PC.NURSE ---
Vent settings fio2 at 100% TV 440 peep 5 resp 24 ett at 26 at the lip
[2023-01-05 14:53] LABS: Lactate Arterial 2.9 mmol/L (0.4-2.0); Source Right Radial
--- NOTE | 2023-01-05 16:42 | P.PCN_ITS ---
[facility] Procedure Note Date: 01/05/23 Time: 16:00 Procedure Note:: Right radial arterial line placement Consent obtained from spouse at bedside Arterial line identified by feel and ultrasound. Usual sterile fashion used. Skin cleansed with chlorhexidine. Arterial line kit utilized with Seldinger technique. Unsuccessful first attempt. Reattempt made with bare needle. Artery accessed, guidewire inserted through needle. Needle removed leaving guidewire in right radial artery. Arterial catheter inserted over guidewire. Red pulsatile flow present through arterial line. 2 simple sutures used to secure right radial arterial line. No complications during procedure. Blood loss approximately 2 cc.
--- NOTE | 2023-01-05 17:16 | PC.NURSE ---
Right radial art line placed by Dr. Frey. 88/61 correlates with cuff pressure 92/57
[2023-01-05 18:43] LABS: Anion Gap 15.3 mEq/L (5-15); Blood Urea Nitrogen 34 mg/dl (9-20); Calcium 6.9 mg/dl (8.4-10.2); Carbon Dioxide 22 mmol/L (22.0-30.0); Chloride 93 mmol/L (98-107); Creatinine Clearance Estimated 22 mL/min (50-200); Estimated Glomerular Filt Rate 16 ml/min (>60); GFR (African American) 20 ML/MIN (>60); Glucose 155 mg/dl (74-100); Potassium 4.3 mmoL/L (3.5-5.1); Sodium 126 mmol/L (136-145)
[2023-01-05 18:54] LABS: Troponin I 0.19 ng/ml (0.00-0.034)
[2023-01-05 20:07] LABS: POC Glucose,Bedside 131 (70-110)
--- NOTE | 2023-01-05 21:09 | PC.NURSE ---
instructed by BRIGIDO Campos to stop D10 at this time; also map greater than 70 so decreased epi drip from 20mcg to 15mcg
[2023-01-05 21:58] LABS: POC Glucose,Bedside 52 (70-110)
[2023-01-05 21:58] LABS: POC Glucose,Bedside 72 (70-110)
--- NOTE | 2023-01-05 22:15 | PC.NURSE ---
bp 113/70 (83), decreased epi drip to 10mcg
[2023-01-05 22:16] LABS: Troponin I 0.26 ng/ml (0.00-0.034)
--- NOTE | 2023-01-05 22:17 | PC.NURSE ---
notified BRIGIDO Campos of pt's critical troponin of 0.26, no new orders at this time
--- NOTE | 2023-01-05 22:58 | PC.NURSE ---
bp 109/67 (82), decreased epi drip to 5mcg
--- NOTE | 2023-01-05 23:19 | PC.NURSE ---
pt restless and biting OETT, increased fentanyl drip to 50mcg/hr
[2023-01-06] VITALS (34 sets, daily range): BP systolic 87–108; BP diastolic 55–71; PULSE 102–120; RESP 24–36; TEMP 37.2–40.5; O2SAT 92–96; BMI 52.9; BMI 52.8
--- NOTE | 2023-01-06 | PC.NURSE ---
bp 106/65 (76), held epi drip at this time
--- NOTE | 2023-01-06 00:54 | PC.NURSE ---
bp 108/68 (78), decreased vasopressin drip to 0.03units
--- NOTE | 2023-01-06 01:46 | PC.NURSE ---
bp 100/68 (79), decreased vasopressin drip to 0.02units
--- NOTE | 2023-01-06 03:43 | PC.NURSE ---
0300-bp 108/63 (76), decreased vasopressin to 0.01units
--- NOTE | 2023-01-06 05:16 | PC.NURSE ---
0400-bp 100/61 (71), stopped vasopressin drip at this time
--- NOTE | 2023-01-06 05:21 | PC.NURSE ---
pt restless and overbreathing vent, RR 41, increased propofol drip to 35mcg/kg/min and fentanyl to 60mcg/hr
[2023-01-06 07:28] LABS: Chloride 94 mmol/L (98-107); Sodium 124 mmol/L (136-145)
[2023-01-06 07:30] LABS: Potassium 4.9 mmoL/L (3.5-5.1)
[2023-01-06 07:31] LABS: Alanine Aminotransferase 97 U/L (12-78); Albumin Level 3.3 g/dl (3.5-5.0); Albumin/Globulin Ratio 0.8 (1.1-1.8); Alkaline Phosphatase 83 U/L (38-126); Anion Gap 14.9 mEq/L (5-15); Basophils # 0.1 K/mm3 (0-0.2); Basophils % 0.4 % (0.1-2.0); Bilirubin,Total 3.1 mg/dl (0.2-1.3); Calcium 6.7 mg/dl (8.4-10.2); Carbon Dioxide 20 mmol/L (22.0-30.0); Eosinophils # 0.1 K/mm3 (0.0-0.4); Eosinophils % 0.7 % (0.1-12.0); Globulin 4.2 g/dL (1.3-3.2); Glucose 113 mg/dl (74-100); Hematocrit 51.6 % (42.0-52.0); Hemoglobin 16.4 g/dL (14.1-18.0); Lymphocytes # 0.8 K/mm3 (0.7-4.5); Lymphocytes % 4.6 % (10-50); Magnesium 1.3 mg/dl (1.6-2.3); Mean Corpuscular HGB Conc 31.7 g/dL (31.8-35.4); Mean Corpuscular Volume 94.7 fl (80-94); Mean Platelet Volume 9.9 fl (7.4-10.4); Monocytes # 0.4 K/mm3 (0.1-1.0); Monocytes % 2.2 % (1.7-9.3); Neutrophils # 16.2 K/mm3 (1.8-7.8); Neutrophils % 92.1 % (37.0-80.0); Platelet Count 146 K/mm3 (142-424); Red Blood Count 5.46 M/mm3 (4.60-6.20); Red Cell Distribution Width 15.3 % (11.5-17.5); Total Protein,Serum 7.5 g/dl (6.3-8.2); White Blood Count 17.6 K/mm3 (4.8-10.8)
[2023-01-06 07:36] LABS: MANUAL DIFFERENTIAL MANUAL DIFFERENTIAL (MANUAL DIFF)
[2023-01-06 07:38] LABS: Aspartate Amino Transferase 202 U/L (17-59); Blood Urea Nitrogen 38 mg/dl (9-20); Creatinine Clearance Estimated 22 mL/min (50-200); Creatinine,Serum 3.82 mg/dl (0.66-1.25); Estimated Glomerular Filt Rate 16 ml/min (>60); GFR (African American) 20 ML/MIN (>60)
[2023-01-06 08:17] LABS: Lymphocytes % 6 % (10-50); Monocytes % 3 % (2-9); Neutrophils % 91 % (42-76); Total Cells Counted 100
[2023-01-06 08:18] LABS: Platelet Estimate Normal; RBC Morphology Normal
--- NOTE | 2023-01-06 08:49 | XR_ITS ---
FINAL REPORT CLINICAL HISTORY: intubated COMPARISON: 01/05/2023 FINDINGS: A single PA view of the chest was obtained. There is no prior exam for comparison. There is stable cardiomegaly. The mediastinal silhouette is within normal limits. There is no change in the support lines and tubes. There are stable increased interstitial markings. There are worsening bibasilar opacities and small pleural effusions there is no pneumothorax. No acute osseous abnormality is identified. IMPRESSION: Worsening bibasilar opacities and small effusions, favor CHF. Reviewed, Interpreted and Dictated by Suzy Green MD Transcribed by Sylvia Howell Authenticated and [facility]
[2023-01-06 08:56] LABS: ABG Base Excess -5.6 mmol/L (-2.4-2.3); ABG HCO3 20.1 mmhg (22.0-26.0); ABG Oxygen Saturation 96 % (90-100); ABG PCO2 37.9 mmhg (35.0-45.0); ABG PH 7.34 mmol/L (7.35-7.45); ABG PO2 75.7 mmhg (80-100); ABG TCO2 21.3 mmhg (23-27)
[2023-01-06 08:58] LABS: Oxygen 70 %; Tidal Volume 440
[2023-01-06 08:59] LABS: Lactate Arterial 2.8 mmol/L (0.4-2.0); PEEP 5; Source A-LINE; Vent Rate 24
--- NOTE | 2023-01-06 10:01 | EXP.PULM.PN ---
Subjective *Date: 01/06/23 *Time: 13:19 Interval history: No acute respiratory vents overnight. Improving shock. Intubated and sedated. Pulmonology Exam Inpatient Vital signs and Labs for Last 24 Hours: Temp Pulse Resp BP Pulse Ox FiO2 103.3 F H 106 H 34 H 100/62 L 94 L 70 01/06/23 09:00 01/06/23 09:49 01/06/23 09:50 01/06/23 09:00 01/06/23 09:50 01/06/23 09:50 Laboratory Results - last 24 hr 01/05/23 06:31: POC Glucose 52 L 01/05/23 07:18: POC Glucose 72 01/05/23 08:21: POC Glucose 65 L 01/05/23 10:00: Troponin I 0.16 H 01/05/23 10:00: WBC 16.2 H, RBC 5.78, Hgb 17.1, Hct 57.0 H, MCV 98.6 H, MCH 29.5, MCHC 29.9 L, RDW 15.1, Plt Count 158, MPV 9.2, Neut % (Auto) 92.2 H, Lymph % (Auto) 4.2 L, [place] % (Auto) 2.4, Eos % (Auto) 0.5, Baso % (Auto) 0.7, Neut # (Auto) 14.9 H, Lymph # (Auto) 0.7, [place] # (Auto) 0.4, Eos # (Auto) 0.1, Baso # (Auto) 0.1 01/05/23 10:00: Sodium 135 L, Potassium 3.8, Chloride 94 L, Carbon Dioxide 24, Anion Gap 20.8 H, BUN 27 H D, Creatinine 2.90 H D, Estimated Creat Clear 29, Estimated GFR 22 L, Est GFR ( Amer) 27 L D, Glucose 47 L D, Calcium 7.8 L, Total Bilirubin 1.9 H, AST 169 H D, ALT 64 D, Alkaline Phosphatase 91, Total Protein 6.6, Albumin 3.3 L D, Globulin 3.3 H, Albumin/Globulin Ratio 1.0 L 01/05/23 10:12: POC Glucose 71 01/05/23 12:42: Troponin I 0.16 H 01/05/23 14:32: Specimen Source Right radial, O2 % 100, ABG pH 7.30 L, ABG pCO2 45.1 H, ABG pO2 210.4 H, ABG HCO3 21.6 L, ABG Total CO2 23.0, ABG O2 Saturation 100, ABG Base Excess -4.9 L, Devin Test Patient unable, ABG Lactate 2.9 H, Vent Rate 24, Tidal Volume 440, PEEP 10 01/05/23 18:20: Troponin I 0.19 H 01/05/23 18:20: Sodium 126 L, Potassium 4.3, Chloride 93 L, Carbon Dioxide 22, Anion Gap 15.3 H, BUN 34 H D, Creatinine 3.80 H D, Estimated Creat Clear 22, Estimated GFR 16 L*, Est GFR ( Amer) 20 L D, Glucose 155 H D, Calcium 6.9 L 01/05/23 19:58: POC Glucose 131 H 01/05/23 21:30: Troponin I 0.26 H 01/06/23 07:10: WBC 17.6 H, RBC 5.46, Hgb 16.4, Hct 51.6, MCV 94.7 H, MCH 30.0, MCHC 31.7 L, RDW 15.3, Plt Count 146, MPV 9.9, Neut % (Auto) 92.1 H, Lymph % (Auto) 4.6 L, [place] % (Auto) 2.2, Eos % (Auto) 0.7, Baso % (Auto) 0.4, Neut # (Auto) 16.2 H, Lymph # (Auto) 0.8, [place] # (Auto) 0.4, Eos # (Auto) 0.1, Baso # (Auto) 0.1, Total Counted 100, Neutrophils % (Manual) 91 H, Lymphocytes % (Manual) 6 L, Monocytes % (Manual) 3, Platelet Estimate Normal, RBC Morphology Normal 01/06/23 07:10: Sodium 124 L, Potassium 4.9, Chloride 94 L, Carbon Dioxide 20 L, Anion Gap 14.9, BUN 38 H, Creatinine 3.82 H, Estimated Creat Clear 22, Estimated GFR 16 L*, Est GFR ( Amer) 20 L, Glucose 113 H D, Calcium 6.7 L, Magnesium 1.3 L, Total Bilirubin 3.1 H, AST 202 H, ALT 97 H D, Alkaline Phosphatase 83, Total Protein 7.5, Albumin 3.3 L, Globulin 4.2 H, Albumin/Globulin Ratio 0.8 L 01/06/23 08:41: Specimen Source A-line, O2 % 70, ABG pH 7.34 L, ABG pCO2 37.9, ABG pO2 75.7 L, ABG HCO3 20.1 L, ABG Total CO2 21.3 L, ABG O2 Saturation 96, ABG Base Excess -5.6 L, Devin Test N/a, ABG Lactate 2.8 H, Vent Rate 24, Tidal Volume 440, PEEP 5 I & O for Labs for Last 24 Hours: Intake & Output 01/03/23 01/04/23 01/05/23 01/06/23 23:59 23:59 23:59 23:59 Intake Total 9174.700 / 9424.700 3465.567 / 3465.567 Output Total 1800 / 1800 520 / 545 210 / 210 Balance -1800 / -1636 8654.700 / 8879.700 3255.567 / 3255.567 Weight 384 lb 15.997 oz 384 lb 15.997 oz 391 lb 3 oz Microbiology Reports for the Last 24 Hours: Microbiology 01/05/23 07:55 Sputum - Endotracheal Tube Aspirate Gram Stain - Final 01/04/23 14:50 Blood Blood Culture - Preliminary 01/04/23 14:50 Blood Blood Culture - Preliminary Constitutional: Present no acute distress and severe distress Comment:: Intubated and Sedated Neck: Present normal inspection and trachea midline Respiratory: Present patient mechanically ventilated, prolonged expiratory phase, rhonchi and wheezes Cardiac: Present S1/S2 and T
--- NOTE | 2023-01-06 10:43 | EXP.CARD.PN ---
Subjective Subjective Date: 01/06/23 Time: 08:00 Principal diagnosis: Septic shock, cellulitis left lower extremity, A-fib RVR Interval history: Patient remains intubated and sedated. Requiring 1 pressor. His A-fib with a rate in the low 100s. Remains febrile. A.m. labs reviewed Exam Data for Last 24 hours Vital signs and Labs for Last 24 Hours: Temp Pulse Resp BP Pulse Ox FiO2 103.3 F H 106 H 34 H 100/62 L 94 L 70 01/06/23 09:00 01/06/23 09:49 01/06/23 09:50 01/06/23 09:00 01/06/23 09:50 01/06/23 09:50 Laboratory Results - last 24 hr 01/05/23 06:31: POC Glucose 52 L 01/05/23 07:18: POC Glucose 72 01/05/23 08:21: POC Glucose 65 L 01/05/23 10:00: Troponin I 0.16 H 01/05/23 10:00: Sodium 135 L, Potassium 3.8, Chloride 94 L, Carbon Dioxide 24, Anion Gap 20.8 H, BUN 27 H D, Creatinine 2.90 H D, Estimated Creat Clear 29, Estimated GFR 22 L, Est GFR ( Amer) 27 L D, Glucose 47 L D, Calcium 7.8 L, Total Bilirubin 1.9 H, AST 169 H D, ALT 64 D, Alkaline Phosphatase 91, Total Protein 6.6, Albumin 3.3 L D, Globulin 3.3 H, Albumin/Globulin Ratio 1.0 L 01/05/23 10:12: POC Glucose 71 01/05/23 12:42: Troponin I 0.16 H 01/05/23 14:32: Specimen Source Right radial, O2 % 100, ABG pH 7.30 L, ABG pCO2 45.1 H, ABG pO2 210.4 H, ABG HCO3 21.6 L, ABG Total CO2 23.0, ABG O2 Saturation 100, ABG Base Excess -4.9 L, Devin Test Patient unable, ABG Lactate 2.9 H, Vent Rate 24, Tidal Volume 440, PEEP 10 01/05/23 18:20: Troponin I 0.19 H 01/05/23 18:20: Sodium 126 L, Potassium 4.3, Chloride 93 L, Carbon Dioxide 22, Anion Gap 15.3 H, BUN 34 H D, Creatinine 3.80 H D, Estimated Creat Clear 22, Estimated GFR 16 L*, Est GFR ( Amer) 20 L D, Glucose 155 H D, Calcium 6.9 L 01/05/23 19:58: POC Glucose 131 H 01/05/23 21:30: Troponin I 0.26 H 01/06/23 07:10: WBC 17.6 H, RBC 5.46, Hgb 16.4, Hct 51.6, MCV 94.7 H, MCH 30.0, MCHC 31.7 L, RDW 15.3, Plt Count 146, MPV 9.9, Neut % (Auto) 92.1 H, Lymph % (Auto) 4.6 L, [place] % (Auto) 2.2, Eos % (Auto) 0.7, Baso % (Auto) 0.4, Neut # (Auto) 16.2 H, Lymph # (Auto) 0.8, [place] # (Auto) 0.4, Eos # (Auto) 0.1, Baso # (Auto) 0.1, Total Counted 100, Neutrophils % (Manual) 91 H, Lymphocytes % (Manual) 6 L, Monocytes % (Manual) 3, Platelet Estimate Normal, RBC Morphology Normal 01/06/23 07:10: Sodium 124 L, Potassium 4.9, Chloride 94 L, Carbon Dioxide 20 L, Anion Gap 14.9, BUN 38 H, Creatinine 3.82 H, Estimated Creat Clear 22, Estimated GFR 16 L*, Est GFR ( Amer) 20 L, Glucose 113 H D, Calcium 6.7 L, Magnesium 1.3 L, Total Bilirubin 3.1 H, AST 202 H, ALT 97 H D, Alkaline Phosphatase 83, Total Protein 7.5, Albumin 3.3 L, Globulin 4.2 H, Albumin/Globulin Ratio 0.8 L 01/06/23 08:41: Specimen Source A-line, O2 % 70, ABG pH 7.34 L, ABG pCO2 37.9, ABG pO2 75.7 L, ABG HCO3 20.1 L, ABG Total CO2 21.3 L, ABG O2 Saturation 96, ABG Base Excess -5.6 L, Devin Test N/a, ABG Lactate 2.8 H, Vent Rate 24, Tidal Volume 440, PEEP 5 I & O for Last 24 hours: Intake & Output 01/03/23 01/04/23 01/05/23 01/06/23 23:59 23:59 23:59 23:59 Intake Total 9174.700 / 9424.700 3719.800 / 3719.800 Output Total 1800 / 1800 520 / 545 210 / 210 Balance -1800 / -1636 8654.700 / 8879.700 3509.800 / 3509.800 Weight 384 lb 15.997 oz 384 lb 15.997 oz 391 lb 3 oz Microbiology Reports for the Last 24 Hours: Microbiology 01/05/23 07:55 Sputum - Endotracheal Tube Aspirate Gram Stain - Final Constitutional Constitutional: morbidly obese Comments: Intubated and sedated *Routine Respiratory Exam Respiratory: Present CTA bilaterally and symmetric chest movement *Routine Cardiovascular Exam Cardiovascular: Present Normal S1 and Normal S2 Comments: afib RVR low 100s *Routine Abdominal Exam Abdominal: Present soft and normoactive bowel sounds; Absent tenderness *Routine Extremities Exam Extremities: Present edema Comments: chronic bilateral lower extremity discoloration noted. Bilateral lower extremity edema present left greater than right. Eryt
[2023-01-06 11:16] LABS: POC Glucose,Bedside 115 (70-110)
--- NOTE | 2023-01-06 11:20 | PC.NURSE ---
notified Sonu Nash of increasing temperature, came to bedside and new orders received
[2023-01-06 11:51] LABS: Chloride 93 mmol/L (98-107); Potassium 4.5 mmoL/L (3.5-5.1); Sodium 124 mmol/L (136-145)
[2023-01-06 11:54] LABS: Anion Gap 16.5 mEq/L (5-15); Blood Urea Nitrogen 44 mg/dl (9-20); Calcium 6.5 mg/dl (8.4-10.2); Carbon Dioxide 19 mmol/L (22.0-30.0); Creatinine Clearance Estimated 16 mL/min (50-200); Estimated Glomerular Filt Rate 11 ml/min (>60); GFR (African American) 13 ML/MIN (>60); Glucose 132 mg/dl (74-100)
--- NOTE | 2023-01-06 12:10 | DIET.NUTRFU ---
Patient intubated with OG in place, do not anticipate extubation today per RT. TF was started: pulmocare at 10ml/hr, goal rate is 60ml/hr n37vesor to [id number], 90gm protein and 1130ml/day of formula water. Ordered minimal flush of 20ml [id number]. Patient had poor urine out yesterday of 520ml with a net balance of 8654ml due to IVF provided. IV was stopped today and diuretics are on hold. With Na of 124H possibly due to decrease in urine output. He also received propofol yesterday providing 17kcal. Will continue to monitor TF tolerance. cardiac consult.
--- NOTE | 2023-01-06 12:17 | PC.NURSE ---
notified Sonu Nash of critical creatinine, repeat serum creatinine
[2023-01-06 13:03] LABS: Creatinine Clearance Estimated 16 mL/min (50-200); Estimated Glomerular Filt Rate 11 ml/min (>60); GFR (African American) 14 ML/MIN (>60)
[2023-01-06 13:11] LABS: Creatine Kinase MB 7.4 ng/ml (0.0-2.03)
--- NOTE | 2023-01-06 13:34 | PC.NURSE ---
notified Sonu Nash of rectal temp of 104.9, and critical creatinine of 5.2
--- NOTE | 2023-01-06 13:39 | PC.NURSE ---
WARNER Kelsey came to bedside and able to doppler right pedal pulse, marked pulse site
[2023-01-06 15:16] LABS: Creatine Kinase 10271 U/L (55-170)
--- NOTE | 2023-01-06 15:26 | PC.NURSE ---
notified Sonu Nash of creatine kinase
--- NOTE | 2023-01-06 16:40 | EXP.ACUTE.PN ---
Subjective *Date: 01/06/23 *Time: 16:40 Interval history: Intubated and sedated no history obtained. Medical Exam Vital signs and Labs for Last 24 Hours: Vital Signs Temp Pulse Pulse Pulse Resp BP BP 01/06/23 16:00 111 H 01/06/23 15:00 102.5 F H 108 H 32 H 99/69 L 94/64 L 01/06/23 12:00 107 H 01/06/23 08:00 108 H 01/06/23 14:00 103.2 F H 102 H 34 H 98/62 L 92/62 L 01/06/23 14:04 109 H 01/06/23 14:04 102 H 01/06/23 14:00 25 H 01/06/23 12:00 102 H 01/06/23 13:00 104.9 F H 108 H 32 H 93/65 L 94/64 L 01/06/23 12:00 103.3 F H 102 H 30 H 91/60 L 96/63 L 01/06/23 10:00 01/06/23 11:00 104.3 F H 108 H 35 H 99/64 L 99/67 L 01/06/23 10:00 103.2 F H 105 H 30 H 101/67 L 103/65 L 01/06/23 09:50 34 H 01/06/23 09:49 106 H 01/06/23 09:49 102 H 01/06/23 09:00 103.3 F H 105 H 36 H 100/62 L 102/63 L 01/06/23 08:00 103.1 F H 104 H 29 H 92/55 L 91/56 L 01/06/23 08:08 104 H 29 H 01/06/23 06:50 108 H 27 H 96/58 L 95/58 L 01/06/23 04:00 01/06/23 06:00 105 H 33 H 95/60 L 95/58 L 01/06/23 04:00 110 H 01/06/23 06:00 103 H 01/06/23 06:00 107 H 01/06/23 06:00 28 H 01/06/23 05:00 104 H 31 H 98/59 L 97/60 L 01/06/23 04:00 112 H 26 H 97/64 L 100/61 L 01/06/23 04:00 102.9 F H 01/06/23 03:44 26 H 01/06/23 00:00 102 H 01/06/23 02:13 102 H 01/06/23 02:13 106 H 01/06/23 02:13 29 H 01/06/23 03:00 108 H 24 107/68 L 108/63 L 01/06/23 02:00 107 H 26 H 103/66 L 104/65 L 01/06/23 00:00 01/05/23 20:00 01/06/23 01:00 106 H 30 H 104/71 L 105/67 L 01/06/23 00:00 111 H 31 H 106/68 L 106/65 L 01/06/23 00:00 103.2 F H 01/05/23 23:11 31 H 01/05/23 23:00 101.8 F H 107 H 26 H 107/74 L 114/65 01/05/23 22:00 104 H 30 H 110/78 106/71 L 01/05/23 21:41 99 H 01/05/23 21:41 102 H 01/05/23 21:41 28 H 01/05/23 20:00 100 H 01/05/23 21:00 103.3 F H 96 H 26 H 101/70 L 99/69 L 01/05/23 20:00 104 H 31 H 94/68 L 91/64 L 01/05/23 19:57 30 H 01/05/23 19:00 95 H 31 H 97/67 L 94/64 L 01/05/23 18:22 01/05/23 18:20 94 H 01/05/23 18:20 95 H 01/05/23 18:20 27 H 01/05/23 18:00 102.5 F H 96 H 24 93/60 L 88/62 L 01/05/23 18:00 01/05/23 17:08 01/05/23 17:00 102 F H 96 H 24 88/65 L 85/63 L Pulse Ox FiO2 01/06/23 16:00 01/06/23 15:00 96 70 01/06/23 12:00 01/06/23 08:00 01/06/23 14:00 96 70 01/06/23 14:04 01/06/23 14:04 01/06/23 14:00 96 70 01/06/23 12:00 96 70 01/06/23 13:00 96 01/06/23 12:00 96 70 01/06/23 10:00 95 70 01/06/23 11:00 96 70 01/06/23 10:00 95 70 01/06/23 09:50 94 L 70 01/06/23 09:49 01/06/23 09:49 01/06/23 09:00 96 70 01/06/23 08:00 95 70 01/06/23 08:08 95 70 01/06/23 06:50 96 70 01/06/23 04:00 96 70 01/06/23 06:00 96 70 01/06/23 04:00 01/06/23 06:00 01/06/23 06:00 01/06/23 06:00 96 70 01/06/23 05:00 96 70 01/06/23 04:00 96 70 01/06/23 04:00 01/06/23 03:44 96 70 01/06/23 00:00 01/06/23 02:13 01/06/23 02:13 01/06/23 02:13 96 70 01/06/23 03:00 96 70 01/06/23 02:00 96 70 01/06/23 00:00 95 70 01/05/23 20:00 96 70 01/06/23 01:00 96 70 01/06/23 00:00 96 70 01/06/23 00:00 01/05/23 23:11 96 70 01/05/23 23:00 97 70 01/05/23 22:00 96 70 01/05/23 21:41 01/05/23 21:41 01/05/23 21:41 97 71 01/05/23 20:00 01/05/23 21:00 96 70 01/05/23 20:00 97 70 01/05/23 19:57 97 70 01/05/23 19:00 97 70 01/05/23 18:22 98 70 01/05/23 18:20 01/05/23 18:20 01/05/23 18:20 98 70 01/05/23 18:00 70 01/05/23 18:00 98 70 01/05/23 17:08
[2023-01-06 17:05] LABS: Vancomycin,Trough 35.8 ug/mL (5.0-10.0)
--- NOTE | 2023-01-06 17:12 | PC.NURSE ---
spoke with Jo[facility] from [facility], stated to hold next dose of vanc and stated he would put in lab for tomorrow
--- NOTE | 2023-01-06 17:59 | PC.NURSE ---
notified Sonu Nash of residual from OG tube, tube feeds on hold, new orders received
[2023-01-06 18:25] LABS: POC Glucose,Bedside 128 (70-110)
--- NOTE | 2023-01-06 18:59 | PC.NURSE ---
vent settings are currently: FiO2 70 TV 440 PEEP 8 RR 24 Current drip rates are: Fentanyl 25 mcg/hr Propofol 30 mcg/kg/min Vasopressin 0.04 units/min Norepi 16 mcg/min Bicarb 50 mL/hr
--- NOTE | 2023-01-06 19:50 | PC.NURSE ---
bp 83/58, increased levophed drip to 18mcg
--- NOTE | 2023-01-06 20:08 | XR_ITS ---
PROCEDURE INFORMATION: Exam: XR Abdomen Exam date and time: 01/06/2023 8:22 PM Age: 62 years old Clinical indication: Device placement; Gi device; Nasogastric tube; Additional info: High tube feed residuals TECHNIQUE: Imaging protocol: Radiologic exam of the abdomen. Views: Frontal supine view of the abdomen. 1 View. COMPARISON: CT ANGIO ABDOMEN/FEMORAL 02/05/2021 1:09 PM FINDINGS: Tubes, catheters and devices: Multiple tubes and lines overlying the visualized abdomen. Nasogastric tube tip terminates overlying the left upper quadrant in the expected location of the stomach. Gastrointestinal tract: No bowel dilation. Bones/joints: Partially visualized left hip arthroplasty. IMPRESSION: Nasogastric tube tip terminates overlying the left upper quadrant in the expected location of the stomach.
[2023-01-06 20:43] LABS: POC Glucose,Bedside 133 (70-110)
[2023-01-07] VITALS (33 sets, daily range): BP systolic 79–111; BP diastolic 40–74; PULSE 29–119; RESP 24–34; TEMP 36.6–40.2; O2SAT 90–100; BMI 52.8
[2023-01-07 04:39] LABS: POC Glucose,Bedside 129 (70-110)
--- NOTE | 2023-01-07 05:47 | PC.NURSE ---
after pt's bath, map decreased less than 70, increased levophed drip to 20mcg
--- NOTE | 2023-01-07 06:00 | XR_ITS ---
PROCEDURE INFORMATION: Exam: XR Chest Exam date and time: 01/07/2023 5:05 AM Age: 62 years old Clinical indication: Device placement; Ett placement (vent status); Additional info: Intubated TECHNIQUE: Imaging protocol: Radiologic exam of the chest. Views: 1 view. COMPARISON: CR XR CHEST PORTABLE 01/06/2023 9:28 AM FINDINGS: Tubes, catheters and devices: An ET tube is not visualized. This may be secondary to technique. Nasogastric tube is unchanged although its distal tip is also not visualized. Lungs: Retrocardiac density is noted. Pleural spaces: Unremarkable. No pleural effusion. No pneumothorax. Heart/Mediastinum: Heart is diffusely enlarged. Bones/joints: Unremarkable. IMPRESSION: The distal tip of the NG tube and the entire ET tube of the nonvisualized on the examination secondary to large body habitus and technique.
[2023-01-07 06:48] LABS: Basophils # 0.1 K/mm3 (0-0.2); Eosinophils # 0.1 K/mm3 (0.0-0.4); Eosinophils % 0.8 % (0.1-12.0); Hematocrit 50.1 % (42.0-52.0); Hemoglobin 16.3 g/dL (14.1-18.0); Lymphocytes # 0.6 K/mm3 (0.7-4.5); Lymphocytes % 3.9 % (10-50); Mean Corpuscular HGB Conc 32.4 g/dL (31.8-35.4); Mean Corpuscular Hemoglobin 30.5 pg (27.0-31.2); Mean Corpuscular Volume 93.9 fl (80-94); Mean Platelet Volume 10.2 fl (7.4-10.4); Monocytes # 0.3 K/mm3 (0.1-1.0); Monocytes % 2.3 % (1.7-9.3); Neutrophils # 13.5 K/mm3 (1.8-7.8); Platelet Count 129 K/mm3 (142-424); Red Blood Count 5.34 M/mm3 (4.60-6.20); Red Cell Distribution Width 15.6 % (11.5-17.5); White Blood Count 14.7 K/mm3 (4.8-10.8)
[2023-01-07 06:50] LABS: MANUAL DIFFERENTIAL MANUAL DIFFERENTIAL (MANUAL DIFF)
[2023-01-07 07:00] LABS: ABG Base Excess -7.4 mmol/L (-2.4-2.3); ABG HCO3 18.9 mmhg (22.0-26.0); ABG Oxygen Saturation 92 % (90-100); ABG PCO2 38.9 mmhg (35.0-45.0); ABG PH 7.31 mmol/L (7.35-7.45); ABG PO2 64.6 mmhg (80-100); ABG TCO2 20.1 mmhg (23-27)
[2023-01-07 07:03] LABS: Oxygen 70% %; PEEP 8; Tidal Volume 440; Vent Rate 24
[2023-01-07 07:04] LABS: Source A-LINE
[2023-01-07 07:28] LABS: Lymphocytes % 12 % (10-50); Monocytes % 4 % (2-9); Neutrophils % 84 % (42-76); Platelet Estimate Normal; RBC Morphology Normal; Total Cells Counted 100
[2023-01-07 07:52] LABS: Magnesium 1.6 mg/dl (1.6-2.3); Phosphorous 9.5 mg/dl (2.5-4.5)
[2023-01-07 07:53] LABS: Alanine Aminotransferase 109 U/L (12-78); Albumin Level 2.7 g/dl (3.5-5.0); Albumin/Globulin Ratio 0.8 (1.1-1.8); Alkaline Phosphatase 83 U/L (38-126); Anion Gap 22.9 mEq/L (5-15); Aspartate Amino Transferase 414 U/L (17-59); Bilirubin,Total 2.8 mg/dl (0.2-1.3); Blood Urea Nitrogen 57 mg/dl (9-20); Calcium 5.8 mg/dl (8.4-10.2); Carbon Dioxide 17 mmol/L (22.0-30.0); Chloride 88 mmol/L (98-107); Creatinine Clearance Estimated 13 mL/min (50-200); Estimated Glomerular Filt Rate 9 ml/min (>60); GFR (African American) 10 ML/MIN (>60); Globulin 3.4 g/dL (1.3-3.2); Glucose 139 mg/dl (74-100); Potassium 5.9 mmoL/L (3.5-5.1); Sodium 122 mmol/L (136-145); Total Protein,Serum 6.1 g/dl (6.3-8.2)
--- NOTE | 2023-01-07 08:00 | PC.NURSE ---
Critical lab values, potassium, BUN, Creatinine reported to .
--- NOTE | 2023-01-07 08:01 | EXP.PHA.CONS ---
Pharmacy Consult Date: 01/07/23 Time: 08:01 Referring provider: DR. ZACARIAS Reason for Consult:: VANCOMYCIN LEVEL Allergies Allergy/AdvReac Type Severity Reaction Status Date / Time sulfamethoxazole AdvReac Verified 01/04/23 21:12 [From Bactrim] trimethoprim [From Bactrim] AdvReac Verified 01/04/23 21:12 Home Medications Medication Instructions Recorded Confirmed Type aspirin 81 mg tablet,delayed 81 mg PO DAILY HEART HEALTH 08/25/18 01/04/23 History release (Adult Low Dose Aspirin) [id number] acid 300 1 tab PO DAILY Supplement 08/25/18 01/04/23 History mcg-lycopene 600 mcg-lutein 300 mcg tablet (Centrum Silver Men) diltiazem HCl 120 mg 240 mg PO DAILY heart rate 07/26/22 01/04/23 History capsule,extended release 24 hr atorvastatin 40 mg tablet 40 mg PO DAILY Cholesterol #90 tabs 08/16/22 01/04/23 Rx carvedilol 6.25 mg tablet 6.25 mg PO BID Hypertension 09/14/22 01/04/23 History furosemide 40 mg tablet 40 mg PO BID Fluid 09/14/22 01/04/23 History rivaroxaban 20 mg tablet (Xarelto) 20 mg PO DAILY afib blood thinner 09/14/22 01/04/23 History New Prescriptions to Start Prescriptions: Height: 1.83 m Weight: 177 kg Laboratory Results:: Laboratory Results - last 24 hr 01/06/23 07:10: Total Counted 100, Neutrophils % (Manual) 91 H, Lymphocytes % (Manual) 6 L, Monocytes % (Manual) 3, Platelet Estimate Normal, RBC Morphology Normal 01/06/23 08:41: Specimen Source A-line, O2 % 70, ABG pH 7.34 L, ABG pCO2 37.9, ABG pO2 75.7 L, ABG HCO3 20.1 L, ABG Total CO2 21.3 L, ABG O2 Saturation 96, ABG Base Excess -5.6 L, Devin Test N/a, ABG Lactate 2.8 H, Vent Rate 24, Tidal Volume 440, PEEP 5 01/06/23 11:06: POC Glucose 115 H 01/06/23 11:37: Sodium 124 L, Potassium 4.5, Chloride 93 L, Carbon Dioxide 19 L, Anion Gap 16.5 H, BUN 44 H, Creatinine 5.30 H D, Estimated Creat Clear 16, Estimated GFR 11 L*, Est GFR ( Amer) 13 L* D, Glucose 132 H, Calcium 6.5 L 01/06/23 12:45: Creatinine 5.20 H, Estimated Creat Clear 16, Estimated GFR 11 L*, Est GFR ( Amer) 14 L*, CK-MB (CK-2) 7.4 H 01/06/23 12:45: Total Creatine Kinase 00862 H* 01/06/23 15:50: Vancomycin Trough 35.8 H 01/06/23 18:07: POC Glucose 128 H 01/06/23 20:37: POC Glucose 133 H 01/07/23 04:32: POC Glucose 129 H 01/07/23 06:40: WBC 14.7 H, RBC 5.34, Hgb 16.3, Hct 50.1, MCV 93.9, MCH 30.5, MCHC 32.4, RDW 15.6, Plt Count 129 L, MPV 10.2, Neut % (Auto) 92.0 H, Lymph % (Auto) 3.9 L, [place] % (Auto) 2.3, Eos % (Auto) 0.8, Baso % (Auto) 1.0, Neut # (Auto) 13.5 H, Lymph # (Auto) 0.6 L, [place] # (Auto) 0.3, Eos # (Auto) 0.1, Baso # (Auto) 0.1, Total Counted 100, Neutrophils % (Manual) 84 H, Lymphocytes % (Manual) 12, Monocytes % (Manual) 4, Platelet Estimate Normal, RBC Morphology Normal 01/07/23 06:40: Phosphorus 9.5 H D, Magnesium 1.6 D 01/07/23 07:03: Specimen Source A-line, O2 % 70%, ABG pH 7.31 L, ABG pCO2 38.9, ABG pO2 64.6 L, ABG HCO3 18.9 L, ABG Total CO2 20.1 L, ABG O2 Saturation 92, ABG Base Excess -7.4 L, Vent Rate 24, Tidal Volume 440, PEEP 8 01/07/23 07:15: Sodium 122 L, Potassium 5.9 H D, Chloride 88 L, Carbon Dioxide 17 L, Anion Gap 22.9 H, BUN 57 H D, Creatinine 6.60 H D, Estimated Creat Clear 13, Estimated GFR 9 L*, Est GFR ( Amer) 10 L* D, Glucose 139 H, Calcium 5.8 L, Total Bilirubin 2.8 H, AST 414 H* D, ALT 109 H, Alkaline Phosphatase 83, Total Protein 6.1 L, Albumin 2.7 L D, Globulin 3.4 H, Albumin/Globulin Ratio 0.8 L Medical History: Medical History (Updated 01/06/23 @ 10:00 by Jeremie Esquivel MD) Atrial fibrillation CHF (congestive heart failure) History of left heart catheterization Hypertension Hypotension Lymphedema On mechanically assisted ventilation Peripheral vascular disease Septic shock Assessment and Plan Assessment and plan all Dx Assessment and Plan for all problems:: VANCOMYCIN LEVEL 35.8 MCG/ML OVERNIGHT. HOLDING VANCOMYCIN DOSE UNTIL LEVEL COMES DOWN.
--- NOTE | 2023-01-07 08:50 | PC.NURSE ---
Pt febrile 103.6. Tylenol sup administered. Ice packs placed.
[2023-01-07 08:57] LABS: Lactate Arterial 3.4 mmol/L (0.4-2.0)
--- NOTE | 2023-01-07 09:31 | EXP.PULM.PN ---
Subjective *Date: 01/07/23 *Time: 13:35 Interval history: No acute respiratory events overnight. Stable ventilator settings. Pulmonology Exam Inpatient Vital signs and Labs for Last 24 Hours: Temp Pulse Resp BP Pulse Ox FiO2 103.6 F H 100 H 28 H 91/69 L 93 L 70 01/07/23 08:00 01/07/23 08:00 01/07/23 08:00 01/07/23 08:00 01/07/23 08:00 01/07/23 08:00 Laboratory Results - last 24 hr 01/06/23 11:06: POC Glucose 115 H 01/06/23 11:37: Sodium 124 L, Potassium 4.5, Chloride 93 L, Carbon Dioxide 19 L, Anion Gap 16.5 H, BUN 44 H, Creatinine 5.30 H D, Estimated Creat Clear 16, Estimated GFR 11 L*, Est GFR ( Amer) 13 L* D, Glucose 132 H, Calcium 6.5 L 01/06/23 12:45: Creatinine 5.20 H, Estimated Creat Clear 16, Estimated GFR 11 L*, Est GFR ( Amer) 14 L*, CK-MB (CK-2) 7.4 H 01/06/23 12:45: Total Creatine Kinase 46472 H* 01/06/23 15:50: Vancomycin Trough 35.8 H 01/06/23 18:07: POC Glucose 128 H 01/06/23 20:37: POC Glucose 133 H 01/07/23 04:32: POC Glucose 129 H 01/07/23 06:40: WBC 14.7 H, RBC 5.34, Hgb 16.3, Hct 50.1, MCV 93.9, MCH 30.5, MCHC 32.4, RDW 15.6, Plt Count 129 L, MPV 10.2, Neut % (Auto) 92.0 H, Lymph % (Auto) 3.9 L, [place] % (Auto) 2.3, Eos % (Auto) 0.8, Baso % (Auto) 1.0, Neut # (Auto) 13.5 H, Lymph # (Auto) 0.6 L, [place] # (Auto) 0.3, Eos # (Auto) 0.1, Baso # (Auto) 0.1, Total Counted 100, Neutrophils % (Manual) 84 H, Lymphocytes % (Manual) 12, Monocytes % (Manual) 4, Platelet Estimate Normal, RBC Morphology Normal 01/07/23 06:40: Phosphorus 9.5 H D, Magnesium 1.6 D 01/07/23 07:03: ABG Lactate 3.4 H 01/07/23 07:03: Specimen Source A-line, O2 % 70%, ABG pH 7.31 L, ABG pCO2 38.9, ABG pO2 64.6 L, ABG HCO3 18.9 L, ABG Total CO2 20.1 L, ABG O2 Saturation 92, ABG Base Excess -7.4 L, Vent Rate 24, Tidal Volume 440, PEEP 8 01/07/23 07:15: Sodium 122 L, Potassium 5.9 H D, Chloride 88 L, Carbon Dioxide 17 L, Anion Gap 22.9 H, BUN 57 H D, Creatinine 6.60 H D, Estimated Creat Clear 13, Estimated GFR 9 L*, Est GFR ( Amer) 10 L* D, Glucose 139 H, Calcium 5.8 L, Total Bilirubin 2.8 H, AST 414 H* D, ALT 109 H, Alkaline Phosphatase 83, Total Protein 6.1 L, Albumin 2.7 L D, Globulin 3.4 H, Albumin/Globulin Ratio 0.8 L I & O for Labs for Last 24 Hours: Intake & Output 01/04/23 01/05/23 01/06/23 01/07/23 23:59 23:59 23:59 23:59 Intake Total 9174.700 / 9424.700 5578.967 / 5678.967 2363 / 2363 Output Total 1800 / 1800 520 / 545 297 / 300 Balance -1800 / -1636 8654.700 / 8879.700 5281.967 / 5378.967 2344 / 2344 Weight 384 lb 15.997 oz 384 lb 15.997 oz 390 lb 3.491 oz 390 lb 3.491 oz Microbiology Reports for the Last 24 Hours: Microbiology 01/05/23 07:55 Sputum - Endotracheal Tube Aspirate Gram Stain - Final 01/05/23 07:55 Sputum - Endotracheal Tube Aspirate Sputum Culture - Preliminary 01/05/23 08:24 Nose MRSA Culture - Final Negative 01/04/23 14:50 Blood Blood Culture - Final Strep pyogenes (grp a) 01/04/23 14:50 Blood Blood Culture - Final Strep pyogenes (grp a) Constitutional: Present no acute distress and severe distress Comment:: Intubated and Sedated Neck: Present normal inspection and trachea midline Respiratory: Present patient mechanically ventilated, prolonged expiratory phase, rhonchi and wheezes Cardiac: Present S1/S2 and Tachycardia GI: Present soft and distention; Absent tenderness Skin: Present intact; Absent cyanosis Neuro: Absent alert, awake or oriented x 3 Comment:: Intubated and sedated Extremities: Present edema; Absent normal inspection, clubbing or cyanosis Comment:: LLE cellulitis extending above the knee. Right lower extremity discoloration Psychiatric: Present unable to assess Assessment and Plan *Assessment and plan (1) Acute respiratory failure with hypoxia: Status: Acute Category: Medical Code(s): J96.01 - Acute respiratory failure with hypoxia (2) On m
--- NOTE | 2023-01-07 09:39 | XR_ITS ---
FINAL REPORT CLINICAL HISTORY: Intubation. FINDINGS: A portable view of the chest was obtained. Comparison is made to a prior exam from earlier on the same day. There has been interval placement of an ET tube. The tip of the tube is 3.4 cm from the leandro. There has been no change a left subclavian line or and NG tube. The heart is enlarged but stable. The mediastinum is wide but stable. There are low lung volumes with bibasilar atelectasis. There are small pleural effusions. There is no pneumothorax. IMPRESSION: 1. New ET tube in appropriate position. 2. Otherwise no new abnormality. Reviewed, Interpreted and Dictated by Leandro Green MD Transcribed by Radha Monk Authenticated and [facility]
--- NOTE | 2023-01-07 09:46 | PC.NURSE ---
Levophed titrated from 20 mcg/min to 18 mcg/mi @ 0920. Titrated to 16 mcg/min 0945.
[2023-01-07 11:03] LABS: POC Glucose,Bedside 126 (70-110)
--- NOTE | 2023-01-07 11:04 | EXP.CARD.PN ---
Subjective Subjective Date: 01/07/23 Time: 08:00 Principal diagnosis: Septic shock, cellulitis left lower extremity, A-fib RVR Interval history: Patient remains intubated and sedated, requiring pressors. Currently on vaso and levo. Renal function continues to worsen. Remains febrile. All a.m. labs reviewed. at bedside Exam Data for Last 24 hours Vital signs and Labs for Last 24 Hours: Temp Pulse Resp BP Pulse Ox FiO2 103.6 F H 103 H 24 99/66 L 93 L 70 01/07/23 08:00 01/07/23 09:43 01/07/23 09:00 01/07/23 09:00 01/07/23 09:00 01/07/23 09:00 Laboratory Results - last 24 hr 01/06/23 11:06: POC Glucose 115 H 01/06/23 11:37: Sodium 124 L, Potassium 4.5, Chloride 93 L, Carbon Dioxide 19 L, Anion Gap 16.5 H, BUN 44 H, Creatinine 5.30 H D, Estimated Creat Clear 16, Estimated GFR 11 L*, Est GFR ( Amer) 13 L* D, Glucose 132 H, Calcium 6.5 L 01/06/23 12:45: Creatinine 5.20 H, Estimated Creat Clear 16, Estimated GFR 11 L*, Est GFR ( Amer) 14 L*, CK-MB (CK-2) 7.4 H 01/06/23 12:45: Total Creatine Kinase 37349 H* 01/06/23 15:50: Vancomycin Trough 35.8 H 01/06/23 18:07: POC Glucose 128 H 01/06/23 20:37: POC Glucose 133 H 01/07/23 04:32: POC Glucose 129 H 01/07/23 06:40: WBC 14.7 H, RBC 5.34, Hgb 16.3, Hct 50.1, MCV 93.9, MCH 30.5, MCHC 32.4, RDW 15.6, Plt Count 129 L, MPV 10.2, Neut % (Auto) 92.0 H, Lymph % (Auto) 3.9 L, [place] % (Auto) 2.3, Eos % (Auto) 0.8, Baso % (Auto) 1.0, Neut # (Auto) 13.5 H, Lymph # (Auto) 0.6 L, [place] # (Auto) 0.3, Eos # (Auto) 0.1, Baso # (Auto) 0.1, Total Counted 100, Neutrophils % (Manual) 84 H, Lymphocytes % (Manual) 12, Monocytes % (Manual) 4, Platelet Estimate Normal, RBC Morphology Normal 01/07/23 06:40: Phosphorus 9.5 H D, Magnesium 1.6 D 01/07/23 07:03: ABG Lactate 3.4 H 01/07/23 07:03: Specimen Source A-line, O2 % 70%, ABG pH 7.31 L, ABG pCO2 38.9, ABG pO2 64.6 L, ABG HCO3 18.9 L, ABG Total CO2 20.1 L, ABG O2 Saturation 92, ABG Base Excess -7.4 L, Vent Rate 24, Tidal Volume 440, PEEP 8 01/07/23 07:15: Sodium 122 L, Potassium 5.9 H D, Chloride 88 L, Carbon Dioxide 17 L, Anion Gap 22.9 H, BUN 57 H D, Creatinine 6.60 H D, Estimated Creat Clear 13, Estimated GFR 9 L*, Est GFR ( Amer) 10 L* D, Glucose 139 H, Calcium 5.8 L, Total Bilirubin 2.8 H, AST 414 H* D, ALT 109 H, Alkaline Phosphatase 83, Total Protein 6.1 L, Albumin 2.7 L D, Globulin 3.4 H, Albumin/Globulin Ratio 0.8 L 01/07/23 10:56: POC Glucose 126 H I & O for Last 24 hours: Intake & Output 01/04/23 01/05/23 01/06/23 01/07/23 23:59 23:59 23:59 23:59 Intake Total 9174.700 / 9424.700 5578.967 / 5678.967 2612 / 2612 Output Total 1800 / 1800 520 / 545 297 / 300 Balance -1800 / -1636 8654.700 / 8879.700 5281.967 / 5378.967 2593 / 2593 Weight 384 lb 15.997 oz 384 lb 15.997 oz 390 lb 3.491 oz 390 lb 3.491 oz Microbiology Reports for the Last 24 Hours: Microbiology 01/05/23 10:00 Blood Blood Culture - Preliminary NO GROWTH AFTER 48 HOURS 01/05/23 10:00 Blood Blood Culture - Preliminary NO GROWTH AFTER 48 HOURS 01/05/23 07:55 Sputum - Endotracheal Tube Aspirate Gram Stain - Final 01/05/23 07:55 Sputum - Endotracheal Tube Aspirate Sputum Culture - Preliminary 01/05/23 08:24 Nose MRSA Culture - Final Negative 01/04/23 14:50 Blood Blood Culture - Final Strep pyogenes (grp a) 01/04/23 14:50 Blood Blood Culture - Final Strep pyogenes (grp a) Constitutional Constitutional: morbidly obese Comments: Intubated and sedated *Routine Respiratory Exam Respiratory: Present CTA bilaterally and symmetric chest movement *Routine Cardiovascular Exam Cardiovascular: Present Normal S1 and Normal S2 Comments: afib RVR low 100s *Routine Abdominal Exam Abdominal: Present soft and normoactive bowel sounds; Absent tenderness *Routine Extremities Exam Extremities: Present
[2023-01-07 15:03] LABS: Vancomycin,Random 29.3 ug/ml
[2023-01-07 16:06] LABS: POC Glucose,Bedside 128 (70-110)
--- NOTE | 2023-01-07 16:14 | PC.NURSE ---
Pt continues to be febrile. MD aware. Levophed titrated down to 10 mcg/min. Titrated back up to 12 mcg/min and currently infusing at the rate. Vasopressin infusing @ 0.04 units/hr. Per Jluis Nash. Keep MAP 65. OK for SBP in 80s. Propofol @ 30 mcg/kg/min. Fentanyl @ 25 mcg/hr. Vent settings are as follows. AC, FiO2 70%, R 24, PEEP 8, TV 440. F/C at bedside. Pt has not had any urine output since 0800. aware. Waiting for transfer. Family at bedside.
--- NOTE | 2023-01-07 19:11 | EXP.ACUTE.PN ---
Subjective *Date: 01/07/23 *Time: 19:11 Interval history: No issues overnight. Patient remains intubated and sedated Medical Exam Vital signs and Labs for Last 24 Hours: Vital Signs Temp Pulse Pulse Resp BP BP Pulse Ox 01/07/23 16:00 104 H 28 H 79/49 L 84/62 L 100 01/07/23 08:00 100 H 01/07/23 15:50 01/07/23 15:00 102.8 F H 100 H 28 H 84/51 L 86/65 L 100 01/07/23 14:00 99 H 28 H 90/48 L 89/66 L 100 01/07/23 12:00 01/07/23 12:00 100 H 01/07/23 14:07 100 01/07/23 13:53 110 H 01/07/23 13:53 107 H 01/07/23 13:00 99 H 24 91/40 L 90/64 L 100 01/07/23 12:00 104.3 F H 99 H 28 H 92/49 L 88/63 L 99 01/07/23 11:00 105 H 28 H 87/55 L 91/66 L 97 01/07/23 10:00 103 H 24 93/64 L 96/69 L 90 L 01/07/23 09:43 103 H 01/07/23 09:43 101 H 01/07/23 09:00 102 H 24 99/66 L 106/73 L 93 L 01/07/23 08:00 103.6 F H 100 H 28 H 91/69 L 89/65 L 93 L 01/07/23 07:45 01/07/23 06:53 99.9 F H 29 L 29 H 92/61 L 87/62 L 91 L 01/07/23 05:45 103 H 01/07/23 05:45 106 H 01/07/23 05:45 26 H 92 L 01/07/23 04:00 119 H 01/07/23 00:00 111 H 01/07/23 06:00 108 H 34 H 93/67 L 92/63 L 92 L 01/07/23 05:00 91 L 01/07/23 00:00 92 L 01/07/23 05:00 109 H 31 H 103/72 L 96/64 L 91 L 01/07/23 04:00 101.6 F H 111 H 29 H 107/72 L 92/67 L 91 L 01/07/23 03:00 115 H 28 H 99/73 L 95/65 L 91 L 01/07/23 03:24 32 H 92 L 01/07/23 02:00 114 H 34 H 111/73 95/67 L 92 L 01/07/23 02:03 104 H 01/07/23 02:03 107 H 01/07/23 02:03 29 H 92 L 01/07/23 01:00 105 H 31 H 97/64 L 95/65 L 91 L 01/07/23 00:16 28 H 92 L 01/07/23 00:00 107 H 26 H 97/68 L 90/61 L 92 L 01/06/23 23:00 98.9 F 106 H 28 H 101/66 L 90/60 L 93 L 01/06/23 22:18 106 H 01/06/23 22:18 102 H 01/06/23 22:18 28 H 92 L 01/06/23 20:00 120 H 92 L 01/06/23 22:00 112 H 30 H 102/64 L 87/59 L 92 L 01/06/23 21:00 112 H 30 H 101/65 L 91/60 L 92 L 01/06/23 20:00 120 H 01/06/23 20:32 34 H 93 L 01/06/23 20:00 102 H 30 H 92/58 L 90/63 L 93 L 01/06/23 19:53 99.1 F FiO2 01/07/23 16:00 70 01/07/23 08:00 01/07/23 15:50 70 01/07/23 15:00 70 01/07/23 14:00 70 01/07/23 12:00 70 01/07/23 12:00 01/07/23 14:07 80 01/07/23 13:53 01/07/23 13:53 01/07/23 13:00 80 01/07/23 12:00 70 01/07/23 11:00 70 01/07/23 10:00 70 01/07/23 09:43 01/07/23 09:43 01/07/23 09:00 70 01/07/23 08:00 70 01/07/23 07:45 70 01/07/23 06:53 70 01/07/23 05:45 01/07/23 05:45 01/07/23 05:45 70 01/07/23 04:00 01/07/23 00:00 01/07/23 06:00 70 01/07/23 05:00 70 01/07/23 00:00 70 01/07/23 05:00 70 01/07/23 04:00 70 01/07/23 03:00 70 01/07/23 03:24 70 01/07/23 02:00 70 01/07/23 02:03 01/07/23 02:03 01/07/23 02:03 70 01/07/23 01:00 70 01/07/23 00:16 71 01/07/23 00:00 70 01/06/23 23:00 70 01/06/23 22:18 01/06/23 22:18 01/06/23 22:18 71 01/06/23 20:00 70 01/06/23 22:00 70 01/06/23 21:00 70 01/06/23 20:00 01/06/23 20:32 70 01/06/23 20:00 70 01/06/23 19:53 Intake and Output 01/07/23 01/07/23 01/07/23 07:59 15:59 23:59 Intake Total 1952 205 / 3274 Output Total 0 Balance 1934 / 3255 111 / 5 205 / 3255 Intake: Intake, Total IV Amount 19524 Acetaminophen 1,000 mg In 100 100 / 100 ml @ 400 mls/hr IV ONCE ONE Rx# :[id number] Chlorothiazide Sodium 1,000 mg 50 / 50 In 0.9 % Sodium Chloride 50 ml @ 100 mls/hr IV Q24H GIO Rx#: [id number] Clindamycin Phosphate/D5w 900 50 / 50 mg In 50 ml @ 100 mls/hr IV Q8H GIO Rx#:[id number] Dextrose 10 % in [place]
--- NOTE | 2023-01-07 19:14 | PC.NURSE ---
Spoke with Alvin SELF. Would like pt to be added to [facility] and . 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
--- NOTE | 2023-01-07 20:12 | PC.NURSE ---
bp 81/61, increased levophed drip to 14mcg
[2023-01-07 21:41] LABS: POC Glucose,Bedside 109 (70-110)
--- NOTE | 2023-01-07 23:57 | EXP.DC.SUM ---
General Admission date:: 01/04/23 Discharge date: 01/07/23 HPI HPI HPI: 01/04/23- Admission History Mr. Cantu is a 62-year-old gentleman with history of A-fib, lymphedema, morbid obesity, hypertension, and PE who presented to the ER at [facility] due to feeling ill.? States that he was having tachypnea and tachycardia.? States that he felt like he was shaking or tremulous.? Denied any oxana fever, nausea, vomiting, chest pain.? On arrival to the ER was stable on room air.? Placed on 2 L nasal cannula for comfort.? Found to be in A-fib with RVR.? Noted as well to have redness and swelling of his left lower extremity.? Sent for CTA of his chest which was negative for large central PEs but noted to have motion artifact.? Ultrasound of left lower extremity negative for DVT.? Patient developed worsening respiratory failure requiring 100% oxygen.? Cardiology was consulted for A-fib with RVR, patient started on diltiazem drip.? Concern for possible acute on chronic right heart failure.? Recommended initiation of diuresis.? Patient received 120 mg IV Lasix in the ER.? Medicine consulted for admission. On evaluation on admission, patient is alert and oriented.? Currently on BiPAP because of his respiratory failure.? Tachypneic with respiratory rate in the 30s.? Heart rate still in the 120s on diltiazem drip.? Is afebrile but noted to have significant redness of left lower extremity.? Given tachycardia, tachypnea, infection with cellulitis in his leg concern for sepsis.? Broaden antibiotic coverage, started on Vancomycin and Cefepime cultures drawn.? Admitted patient to ICU to monitor overnight.? Family at bedside states patient had been doing well until today.? Reports this is how he presented with his PE last time. Hospital Course Hospital Course Hospital Course: 01/05/2023 Morning of 01/05 the patient became non-responsive, would not respond to painful stimuli and pulses were not palpable. A CODE Deng was called and the patient received chest compressions and 2 rounds of Epinephrine, he had ROSC achieved, he became able to verbalize, but appeared confused, he was able to state his name only. The patient was intubated for airway protection. Blood cultures were positive for Strep Species. Blood glucose checked during code was 52 mg/dl, he had a high anion gap metabolic acidosis, he was febrile, Tachycardic and Hypotensive. Concern was for septic shock. Cardiology recommended no more diuretics due to concern for sepsis. The patient was started on pressor support following intubation and required Norepinephrine, Epinephrine and Vasopressin. He also required steroid dosing and D10 drip due to hypoglycemia. He had a Central Line and ART line placed. Pulmonary/Critical Care was consulted for ventilator managment and critical care and recommended antibiotics be switched to Vancomycin, Merrem and Clindamycin. He had imaging of the left lower extremity performed that showed no focal abscess and no Osseous abnormality. Creatinine went from 1.30 on admission to 2.90. 01/06/2023 The patient was followed by Internal Medicine, Pulmonary/Critical Care and Cardiology. Urine output over the last 24 hours was <100 ml. Creatinine increased to 5.30. Vancomycin stopped. Continued on Merrem and Clindamycin. Weaned off Epinephrine, Hypogycemia resolved, D10 water stopped. With Hyponatremia. 01/07/2023 Creatinine 6.60, urine output over last 24 hours 39 ml. Tried Diuretic challenge with Diurel and Bumex and did not respond. K 5.9. Decision made to transfer patient to facility capable of providing CRRT. Family agreeable. Multiple facilities contacted. Accepted at [facility] by Dr. De Guzman. Blood cultures on admission positive for Strep pyrogens with gaona sensitivy. De-escalated to Clindamycin. 62-year-old male with history of A-fib, morbid obesity history of PE, and stasis changes presents with shortness of breath, A-fi
[2023-01-08] VITALS: BP 99/70; PULSE 100; PULSE 102; RESP 28; O2SAT 100
--- NOTE | 2023-01-08 00:04 | PC.NURSE ---
Two bottle of propofol pulled from [facility] for transport to [place].
--- NOTE | 2023-01-08 00:23 | PC.NURSE ---
Addendum entered by Tati Dotson RN 01/08/23 03:44: pt being transported with WARNER Trejo present Original Note: report called to Elvi Marie RN at [facility], pt to be transported via ambulance to room 923 with this RN present
[2023-01-08 01:00] VITALS: BP 90/65; PULSE 94; RESP 27; TEMP 37.2; O2SAT 94
== END 2023-01-08 03:33 | disposition short-term general hospital (02) | DRG 870 ==
LOC: ER 10:43 → 2ND 01-05 09:07
PROVIDERS: Internal Medicine; Internal Medicine Pulmonary Disease; Nurse Practitioner Family; Student in an Organized Health Care Education/Training Program; Admitting Provider Internal Medicine Adolescent Medicine; Emergency Provider Emergency Medicine; PCP Nurse Practitioner Family; Visit Provider Internal Medicine Adolescent Medicine
DX: J96.01 Acute respiratory failure with hypoxia (principal); I50.33 Acute on chronic diastolic (congestive) heart failure; I46.9 Cardiac arrest, cause unspecified; R65.21 Severe sepsis with septic shock; M62.82 Rhabdomyolysis; N17.0 Acute kidney failure with tubular necrosis; A41.9 Sepsis, unspecified organism; L03.116 Cellulitis of left lower limb; I5A Non-ischemic myocardial injury (non-traumatic); N17.9 Acute kidney failure, unspecified; Z68.43 Body mass index [BMI] 50.0-59.9, adult; E87.20 Acidosis, unspecified; E87.1 Hypo-osmolality and hyponatremia; I48.91 Unspecified atrial fibrillation; I89.0 Lymphedema, not elsewhere classified; E66.01 Morbid (severe) obesity due to excess calories; E78.5 Hyperlipidemia, unspecified; Z79.01 Long term (current) use of anticoagulants; I73.9 Peripheral vascular disease, unspecified; B95.4 Other streptococcus as the cause of diseases classified elsewhere; R73.9 Hyperglycemia, unspecified; E87.5 Hyperkalemia
CPT/HCPCS: 31500; 94002; 36556; 36415; 51702; 71045; 71275; 73590; 74018; 80048; 80053; 80202; 81001; 82550; 82553; 82565; 82803; 82962; 83605; 83615; 83735; 83880; 84100; 84145; 84484; 85007; 85025; 85378; 85651; 85730; 86140; 87040; 87070; 87077; 87081; 87186; 87205; 93005; 93306; 93308; 93971; 94003; 94640; 94760; 94761; 99285; C1751; C9803; J0131; J0692; J1205; J2185; J2405; J2704; J3370; J3475; Q9967; U0003; U0005